=== PATIENT | male | born 1960 | race Caucasian/White ===

== ENCOUNTER 2019-01-01 18:35 | Inpatient (IN) | payer MEDICAID ==
[2019-01-01] MEDS ORDERED: solu-MEDROL 125 MG IV ONE (18:38)
[2019-01-01] MEDS ORDERED: DUONEB 0.5-3 MG/3 ml Neb IH ONE ×3 (18:38→21:21)
[2019-01-01] MEDS ORDERED: solu-MEDROL 125 MG ONE (18:42)
[2019-01-01] MEDS: Sodium Chloride 0.9% 1000 ML 1,000 ML IV SCH (18:44)
--- NOTE | 2019-01-01 18:49 | ERPHSYRPT ---
- History of Present Illness Time Seen by Provider: 01/01/19 18:35 Source: patient Exam Limitations: clinical condition Physician History: PATIENT WITH A HISTORY OF CHRONIC DYSPNEA, COPD, REQUIRES HOME OXYGEN, CORONARY ARTERY DISEASE COMPLAINS OF PRODUCTIVE COUGH YELLOW SPUTUM OVER THE PAST 4-5 DAYS ASSOCIATED WITH DYSPNEA AT REST. DENIES CHEST PAIN, PALPITATIONS OR DIAPHORESIS, FEVER OR CHILLS. Timing/Duration: day(s) Activities at Onset: activity Severity of Dyspnea-Max: severe Severity of Dyspnea-Current: severe Possible Cause: occasional episodes Modifying Factors: Improves With: activity, coughing Associated Symptoms: cough, wheezing, lightheadedness, productive cough International travel in last 2 weeks: No Allergies/Adverse Reactions: No Known Drug Allergies Allergy (Verified 01/01/19 18:57) Home Medications: Albuterol Sulfate [Proair Hfa] 1 puff IH Q4H PRN PRN 01/01/19 [History] Albuterol/Ipratropium 3ml Neb* [DUONEB 0.5-3 MG/3 ml Neb] 1 puff IH Q4H PRN PRN 01/01/19 [History] Aspirin 81 gm Chew [Baby Aspirin 81 mg Chew] 81 mg PO DAILY 01/01/19 [ History] Atorvastatin Calcium [Lipitor] 80 mg PO HS 01/01/19 [History] Carvedilol 3.125 mg [Coreg 3.125 MG] 3.125 mg PO BID 01/01/19 [History] Isosorbide Mononitrate 30 mg [Imdur 30 MG] 30 mg PO DAILY 01/01/19 [History ] Losartan Potassium 25 mg PO DAILY 01/01/19 [History] Omeprazole 40 mg PO DAILY 01/01/19 [History] Prednisone 10 mg [Deltasone 10 mg] 10 mg PO BID 01/01/19 [History] Venlafaxine HCl [Effexor] 225 mg PO DAILY 01/01/19 [History] Hx Tetanus, Diphtheria Vaccination/Date Given: Yes (PT STATES UTD) Hx Influenza Vaccination/Date Given: Yes Hx Pneumococcal Vaccination/Date Given: No - Review of Systems Constitutional: No Fever, No Chills Eyes: No Symptoms Ears, Nose, & Throat: No Symptoms Respiratory: Cough, Dyspnea, Dyspnea on Exertion (BURR) Cardiac: No Symptoms, No Chest Pain, No Edema, No Syncope Abdominal/Gastrointestinal: No Symptoms, No Abdominal Pain, No Nausea, No Vomiting, No Diarrhea Genitourinary Symptoms: No Symptoms, No Dysuria Musculoskeletal: No Symptoms, No Back Pain, No Neck Pain Skin: No Symptoms, No Rash Neurological: No Dizziness, No Focal Weakness, No Sensory Changes Psychological: No Symptoms Endocrine: No Symptoms All Other Systems: Reviewed and Negative - Past Medical History Pertinent Past Medical History: Yes Neurological History: No Pertinent History ENT History: No Pertinent History Cardiac History: Coronary Artery Disease, High Cholesterol, Hypertension Respiratory History: COPD, Emphysema Endocrine Medical History: No Pertinent History Musculoskeletal History: No Pertinent History GI Medical History: No Pertinent History History: No Pertinent History Psycho-Social History: Depression Male Reproductive Disorders: No Pertinent History Other Medical History: [place] 2009 - Past Surgical History Past Surgical History: Yes Neuro Surgical History: No Pertinent History Cardiac: CABG Respiratory: No Pertinent History Gastrointestinal: No Pertinent History Genitourinary: No Pertinent History Musculoskeletal: Orthopedic Surgery Male Surgical History: No Pertinent History Other Surgical History: BROKEN JAW YEARS AGO - Social History Smoking Status: Current every day smoker How long have you smoked: 1 YEAR Exposure to second hand smoke: No Drug Use: none Patient Lives Alone: No - Nursing Vital Signs Nursing Vital Signs: Initial Vital Signs Pulse Rate 100 H 01/01/19 18:38 Respiratory Rate 40 H 01/01/19 18:38 O2 Sat by Pulse Oximetry 100 01/01/19 18:38 Pain Scale Pain Intensity 0 - Physical Exam General Appearance: moderate distress, other (MARKED TACHYPNEA, LABORED BREATHING) Neck Exam: normal inspection Respiratory Exam: respiratory distress, diminished breath sounds, accessory muscle use, prolonged expirations, crackles/rales Cardiovascular/Chest Exam: normal heart sounds, regular rate/rhythm Abdominal/Gastrointestinal Exam: soft, normal bowel sounds Extremity Exam: non-tender, no pedal edema, pedal edema (+1 PITTING PRETIBIAL EDEMA), swelling Peripheral Pulses Exam: carotid (R): 2+, carotid (L): 2+, femoral (R): 2+, femoral (L): 2+, dorsalis-pedis (R): 2+, dorsalis-pedis (L): 2+ Neurologic Exam: alert, oriented x 3, EOM palsy Lymphatic Exam: adenopathy SpO2 Interpretation: hypoxic SpO2: 81 O2 Delivery: Room Air - Course EKG Interpreted by Me: RATE, Sinus Rhythm, Right [place] Deviation, Non-specific ST Changes - Radiology Exams Chest X-ray Interpretation: Interpreted by me (PULMONARY FIBROSIS, LEFT INFRAHILAR INFILTRATE) Ordered Tests: Active Orders 24 hr Category Date Time Status Bedrest with BRP/BSC TOLERATED Activity 01/01/19 21:54 Active Painter Bottom STAT Care 01/01/19 18:39 Active Code Status Order ROUTINE Care 01/01/19 21:54 Active EKG-ER Only STAT Care 01/01/19 18:38 Active IV Insertion ROUTINE Care 01/01/19 21:54 Active IV Insertion STAT Care 01/01/19 18:38 Active Implement Pneumonia Pathway ROUTINE Care 01/01/19 21:54 Active Oxygen-ED Only Nasal Cannula 2 lpm Care 01/01/19 18:[address] in Observation ROUTINE Care 01/01/19 21:54 Active Vital Signs Q4H Care 01/01/19 21:54 Active Cardiac Diet Diet 01/01/19 Breakfast Active CHEST 1 VIEW (PORTABLE) Stat Exams 01/01/19 18:39 Taken ARTERIAL BLOOD GASES Stat Lab 01/01/19 19:00 Completed BLOOD CULTURE Stat Lab 01/01/19 19:00 Received CBC W DIFF Stat Lab 01/01/19 18:40 Completed CMP Stat Lab 01/01/19 18:40 Completed D-DIMER QUANTITATION Stat Lab 01/01/19 18:40 Completed Lactic Acid Stat Lab 01/01/19 19:00 Completed Lactic Acid Stat Lab 01/01/19 21:16 Ordered MAGNESIUM Stat Lab 01/01/19 18:40 Completed Manual Differential NC Stat Lab 01/01/19 18:40 Completed NT PRO BNP Stat Lab 01/01/19 18:40 Completed PROTIME WITH INR Stat Lab 01/01/19 18:40 Completed TROPONIN Q3H Lab 01/01/19 18:45 Completed TROPONIN Q3H Lab 01/01/19 21:53 Completed TROPONIN Q3H Lab 01/02/19 03:45 Ordered TROPONIN Q3H Lab 01/02/19 06:45 Ordered BiPap/CPAP STAT RT 01/01/19 18:38 Active Oxygen Venti-Mask 40% RT 01/01/19 22:09 Active Respiratory Nebulizer STAT RT 01/01/19 21:05 Completed Respiratory Therapy Assessment DAILY RT 01/01/19 19:24 Active Medication Summary Generic Name Dose Route Start Last Admin Trade Name Freq PRN Reason Stop Dose Admin Acetaminophen 650 mg 01/01/19 22:02 Tylenol 325 Mg PO 01/31/19 22:01 Q4H PRN PRN PAIN AND/OR FEVER Albuterol/Ipratropium 3 ml 01/01/19 22:03 Duoneb 0.5-3 Mg/3 Ml Neb IH 01/31/19 22:02 Q4HPRN PRN SHORTNESS OF BREATH/WHEEZING Aspirin 81 mg 01/02/19 10:00 Baby Aspirin 81 Mg Chew PO 02/01/19 09:59 QAM GIGI Carvedilol 3.125 mg 01/02/19 10:00 Coreg 3.125 Mg PO 02/01/19 09:59 BID GIGI Sodium Chloride 1,000 mls @ 20 mls/hr 01/01/19 18:45 01/01/19 18:44 Sodium Chloride 0.9% 1000 Ml IV 01/31/19 18:44 20 mls/hr .Q24H GIGI Administration Levofloxacin/Dextrose 750 mg in 150 mls @ 100 mls/hr 01/01/19 22:00 Levofloxacin 750mg/150ml D5w IV 01/31/19 21:59 Q24H GIGI Isosorbide Mononitrate 30 mg 01/02/19 10:00 Imdur 30 Mg PO 02/01/19 09:59 DAILY [facility] Levalbuterol HCl 1.25 mg 01/01/19 22:03 Xopenex 1.25 Mg/0.5 Ml Ud Nebule IH 01/31/19 22:02 Q2HPRN PRN DIFFICULTY BREATHING Losartan Potassium 25 mg 01/02/19 10:00 Cozaar 50 Mg PO 02/01/19 09:59 DAILY [facility] Methylprednisolone Sodium Succinate 80 mg 01/01/19 22:15 Solu-Medrol 40 Mg IV 01/31/19 22:14 Q6H GIGI Pantoprazole Sodium 40 mg 01/02/19 10:00 Protonix 40mg Tablet PO 02/01/19 09:59 DAILY GIGI Discontinued Medications Generic Name Dose Route Start Last Admin Trade Name Freq PRN Reason Stop Dose Admin Albuterol/Ipratropium 3 ml 01/01/19 18:38 01/01/19 18:40 Duoneb 0.5-3 Mg/3 Ml Neb IH 01/01/19 18:39 3 ml STAT ONE Administration Albuterol/Ipratropium 3 ml 01/01/19 21:04 01/01/19 21:22 Duoneb 0.5-3 Mg/3 Ml Neb IH 01/01/19 21:05 3 ml STAT ONE Administration Albuterol/Ipratropium Confirm 01/01/19 21:21 Duoneb 0.5-3 Mg/3 Ml Neb Administered 01/01/19 21:22 Dose 3 ml IH .STK-MED ONE Levofloxacin/Dextrose 500 mg in 100 mls @ 100 mls/hr 01/01/19 19:44 01/01/19 20:03 Levofloxacin 500mg/100ml D5w IV 01/01/19 20:43 100 mls/hr STAT STA Administration Levofloxacin/Dextrose Confirm 01/01/19 19:56 Levofloxacin 500mg/100ml D5w Administered 01/01/19 19:57 Dose 500 mg in 100 mls @ ud IV .STK-MED ONE Methylprednisolone Sodium Succinate 125 mg 01/01/19 18:38 01/01/19 18:43 Solu-Medrol 125 Mg IV 01/01/19 18:39 125 mg STAT ONE Administration Methylprednisolone Sodium Succinate Confirm 01/01/19 18:42 Solu-Medrol 125 Mg Administered 01/01/19 18:43 Dose 125 mg .ROUTE .STK-MED ONE Lab/Rad Data: Laboratory Result Diagrams 01/01/19 18:40 01/01/19 18:40 Laboratory Results 01/01/19 01/01/19 01/01/19 Range/Units 21:53 20:55 19:00 WBC (4.0-10.5) K/mm3 RBC (4.1-5.6) M/mm3 Hgb (12.5-18.0) gm/dl Hct (42-50) % MCV (78-100) fl MCH (26-32) pg MCHC (32-36) g/dl RDW (11.5-14.0) % Plt Count (150-450) K/mm3 MPV (6-9.5) fl Absolute Granulocytes (1.4-6.9) Segmented Neutrophils (36.-66.) % Lymphocytes (Manual) (24-44) % Monocytes (Manual) (0.0-12.0) % Eosinophils (Manual) (0.00-3.0) % Platelet Estimate (NORMAL) RBC Morphology PT (8.83-12.87) SECONDS INR (0.8-3.0) D-Dimer (215-500) ng/mL Puncture Site LEFT RADIAL pCO2 37 (35-45) mmHg pO2 264 H* (75-100) mmHg Base Excess -1.5 (-2.0-2.0) O2 Saturation 97.2 (94-100) g/dF ABG pH 7.40 (7.35-7.45) ABG HCO3 22.9 (22-28) ABG O2 Sat (Measured) 99.3 (95-100) % Delroy Test YES A-a Gradient 260 a/A Ratio 0.50 Hemoglobin 15.7 Carboxyhemoglobin 1.8 (0.0-6.9) % THgb Methemoglobin 0.3 L (1.4-1.5) % Temperature 37.0 C POC O2 Flow Rate 80 % Vent Mode BiPAP Inspiratory BiPAP 14 Expiratory BiPAP 6 Sodium (137-145) mmol/L Potassium 4.0 (3.5-5.1) mmol/L Chloride (98-107) mmol/L Carbon Dioxide (22-30) mmol/L Anion Gap (5-15) MEQ/L BUN (9-20) mg/dL Creatinine (0.66-1.25) mg/dL Estimated GFR ML/MIN Glucose (74-106) mg/dL Lactic Acid 1.9 (0.4-2.0) Calcium (8.4-10.2) mg/dL Magnesium (1.6-2.3) mg/dL Total Bilirubin (0.2-1.3) mg/dL AST (17-59) U/L ALT (0-50) U/L Alkaline Phosphatase (38-126) U/L Troponin I < 0.012 (0.000-0.034) ng/mL NT-Pro-B Natriuret Pep (0-900) pg/mL Serum Total Protein (6.3-8.2) g/dL Albumin (3.5-5.0) g/dL Influenza Type A Ag NEGATIVE (NEGATIVE) Influenza Type B Ag NEGATIVE (NEGATIVE) RSV (PCR) NEGATIVE (Negative) 01/01/19 01/01/19 01/01/19 Range/Units 18:45 18:40 18:40 WBC (4.0-10.5) K/mm3 RBC (4.1-5.6) M/mm3 Hgb (12.5-18.0) gm/dl Hct (42-50) % MCV (78-100) fl MCH (26-32) pg MCHC (32-36) g/dl RDW (11.5-14.0) % Plt Count (150-450) K/mm3 MPV (6-9.5) fl Absolute Granulocytes (1.4-6.9) Segmented Neutrophils (36.-66.) % Lymphocytes (Manual) (24-44) % Monocytes (Manual) (0.0-12.0) % Eosinophils (Manual) (0.00-3.0) % Platelet Estimate (NORMAL) RBC Morphology PT 10.7 (8.83-12.87) SECONDS INR 0.92 (0.8-3.0) D-Dimer 406 (215-500) ng/mL Puncture Site pCO2 (35-45) mmHg pO2 (75-100) mmHg Base Excess (-2.0-2.0) O2 Saturation (94-100) g/dF ABG pH (7.35-7.45) ABG HCO3 (22-28) ABG O2 Sat (Measured) (95-100) % Delroy Test A-a Gradient a/A Ratio Hemoglobin Carboxyhemoglobin (0.0-6.9) % THgb Methemoglobin (1.4-1.5) % Temperature C POC O2 Flow Rate % Vent Mode Inspiratory BiPAP Expiratory BiPAP Sodium 142 (137-145) mmol/L Potassium 3.8 (3.5-5.1) mmol/L Chloride 103 (98-107) mmol/L Carbon Dioxide 27 (22-30) mmol/L Anion Gap 16.5 H (5-15) MEQ/L BUN 20 (9-20) mg/dL Creatinine 1.00 (0.66-1.25) mg/dL Estimated GFR > 60.0 ML/MIN Glucose 100 (74-106) mg/dL Lactic Acid (0.4-2.0) Calcium 9.3 (8.4-10.2) mg/dL Magnesium 2.0 (1.6-2.3) mg/dL Total Bilirubin 0.40 (0.2-1.3) mg/dL AST 45 (17-59) U/L ALT 40 (0-50) U/L Alkaline Phosphatase 100 (38-126) U/L Troponin I < 0.012 (0.000-0.034) ng/mL NT-Pro-B Natriuret Pep 73.4 (0-900) pg/mL Serum Total Protein 7.5 (6.3-8.2) g/dL Albumin 4.1 (3.5-5.0) g/dL Influenza Type A Ag (NEGATIVE) Influenza Type B Ag (NEGATIVE) RSV (PCR) (Negative) 01/01/19 Range/Units 18:40 WBC 11.6 H (4.0-10.5) K/mm3 RBC 5.07 (4.1-5.6) M/mm3 Hgb 16.4 (12.5-18.0) gm/dl Hct 49.6 (42-50) % MCV 97.8 (78-100) fl MCH 32.3 H (26-32) pg MCHC 33.1 (32-36) g/dl RDW 13.3 (11.5-14.0) % Plt Count 262 (150-450) K/mm3 MPV 9.5 (6-9.5) fl Absolute Granulocytes 5.33 (1.4-6.9) Segmented Neutrophils 57 (36.-66.) % Lymphocytes (Manual) 31 (24-44) % Monocytes (Manual) 10 (0.0-12.0) % Eosinophils (Manual) 2 (0.00-3.0) % Platelet Estimate NORMAL (NORMAL) RBC Morphology NORMAL PT (8.83-12.87) SECONDS INR (0.8-3.0) D-Dimer (215-500) ng/mL Puncture Site pCO2 (35-45) mmHg pO2 (75-100) mmHg Base Excess (-2.0-2.0) O2 Saturation (94-100) g/dF ABG pH (7.35-7.45) ABG HCO3 (22-28) ABG O2 Sat (Measured) (95-100) % Delroy Test A-a Gradient a/A Ratio Hemoglobin Carboxyhemoglobin (0.0-6.9) % THgb Methemoglobin (1.4-1.5) % Temperature C POC O2 Flow Rate % Vent Mode Inspiratory BiPAP Expiratory BiPAP Sodium (137-145) mmol/L Potassium (3.5-5.1) mmol/L Chloride (98-107) mmol/L Carbon Dioxide (22-30) mmol/L Anion Gap (5-15) MEQ/L BUN (9-20) mg/dL Creatinine (0.66-1.25) mg/dL Estimated GFR ML/MIN Glucose (74-106) mg/dL Lactic Acid (0.4-2.0) Calcium (8.4-10.2) mg/dL Magnesium (1.6-2.3) mg/dL Total Bilirubin (0.2-1.3) mg/dL AST (17-59) U/L ALT (0-50) U/L Alkaline Phosphatase (38-126) U/L Troponin I (0.000-0.034) ng/mL NT-Pro-B Natriuret Pep (0-900) pg/mL Serum Total Protein (6.3-8.2) g/dL Albumin (3.5-5.0) g/dL Influenza Type A Ag (NEGATIVE) Influenza Type B Ag (NEGATIVE) RSV (PCR) (Negative) - Progress Air Movement: fair Progress Note: 01/01/19 18:50 PLACED ONTO BIPAP UPON ARRIVAL, ADMINISTERED DUO NEB UNIT DOSE THROUGH CIRCUIT, PULSE OX IMPROVED TO 99%, SOLUMEDROL 125MG IV Blood Culture(s) Obtained: Yes Antibiotics given: Yes Discussed with : Bouchra (DISCUSSED WITH DR APONTE AT 2140 FOR OBSERVATION) - Departure Departure Disposition: Observation Clinical Impression: ACUTE EXACERBATION COPD, PNEUMONIA Condition: Stable Critical Care Time: No Referrals: TWYLA BRIZUELA [Primary Care Provider] -
[2019-01-01 19:08] LABS: Granulocyte Absolute (ANC) 5.33 (1.4-6.9); Hematocrit 49.6 % (42-50); Hemoglobin 16.4 gm/dl (12.5-18.0); Mean Cell Volume 97.8 fl (78-100); Mean Corpuscular Hemoglobin 32.3 pg (26-32); Mean Corpuscular Hgb Concent. 33.1 g/dl (32-36); Mean Platelet Volume 9.5 fl (6-9.5); Platelet Count 262 K/mm3 (150-450); Red Blood Count 5.07 M/mm3 (4.1-5.6); Red Cell Distribution Width 13.3 % (11.5-14.0); White Blood Count 11.6 K/mm3 (4.0-10.5)
[2019-01-01 19:16] LABS: A-aADO2 260; ABG HEMOGLOBIN 15.7; ARTERIAL BLD GAS O2 SATURATION 99.3 % (95-100); ARTERIAL BLOOD GAS BASE EXCESS -1.5 (-2.0-2.0); ARTERIAL BLOOD GAS FIO2 80 %; ARTERIAL BLOOD GAS PCO2 37 mmHg (35-45); ARTERIAL BLOOD GAS PO2 264 mmHg (75-100); ARTERIAL BLOOD GAS VENT MODE BiPAP; CARBOXYHEMOGLOBIN 1.8 % THgb (0.0-6.9); HCO3- 22.9 (22-28); HGB O2 SAT 97.2 g/dF (94-100); Lactic Acid 1.9 (0.4-2.0); Methhemoglobin 0.3 % (1.4-1.5)
[2019-01-01 19:17] LABS: ABG SITE LEFT RADIAL; ALLEN TEST OK? YES
[2019-01-01 19:22] LABS: INR 0.92 (0.8-3.0); PROTIME 10.7 SECONDS (8.83-12.87)
[2019-01-01 19:36] LABS: ALBUMIN 4.1 g/dL (3.5-5.0); ALKALINE PHOSPHATASE 100 U/L (38-126); ANION GAP 16.5 MEQ/L (5-15); BLOOD UREA NITROGEN 20 mg/dL (9-20); CHLORIDE 103 mmol/L (98-107); Calcium 9.3 mg/dL (8.4-10.2); Carbon Dioxide 27 mmol/L (22-30); Glucose 100 mg/dL (74-106); NT PRO BNP 73.4 pg/mL (0-900); Potassium 3.8 mmol/L (3.5-5.1); SGOT/AST 45 U/L (17-59); SGPT/ALT 40 U/L (0-50); SODIUM 142 mmol/L (137-145); Total Protein 7.5 g/dL (6.3-8.2)
[2019-01-01] MEDS ORDERED: Levofloxacin 500MG/100ML D5W 500 MG/100 ML BAG IV STA (19:44)
[2019-01-01] MEDS ORDERED: Levofloxacin 500MG/100ML D5W 500 MG/100 ML BAG IV ONE (19:56)
[2019-01-01 21:35] LABS: Eosinophil 2 % (0.00-3.0); Lymphocytes 31 % (24-44); Monocyte 10 % (0.0-12.0); Neutrophils 57 % (36.-66.); Platelet Estimate NORMAL (NORMAL); Total Cells Counted 100
[2019-01-01 21:41] LABS: INFLUENZA A NEGATIVE (NEGATIVE); INFLUENZA B NEGATIVE (NEGATIVE); RESPIRATORY SYNCTIAL VIRUS NEGATIVE (Negative)
[2019-01-01] MEDS ORDERED: LEVOFLOXACIN 750MG/150ML D5W 750 MG/150 ML BAG IV SCH (22:00)
[2019-01-01] MEDS ORDERED: TYLENOL 325 MG PO PRN (22:02)
[2019-01-01] MEDS ORDERED: Xopenex 1.25 MG/0.5 ML UD NEBULE IH PRN (22:03)
[2019-01-01] MEDS ORDERED: DUONEB 0.5-3 MG/3 ml Neb IH PRN (22:03)
[2019-01-02] MEDS ORDERED: solu-MEDROL 125 MG ONE (03:41)
[2019-01-02] MEDS: solu-MEDROL 40 MG IV SCH ×2 (04:35→09:49)
[2019-01-02] MEDS: DUONEB 0.5-3 MG/3 ml Neb IH SCH ×4 (07:15→19:26)
--- NOTE | 2019-01-02 08:40 | XRAY ---
Indication: Short of breath. Comparison: May 10, 2015. Portable chest unchanged again demonstrating cardiomegaly, CABG surgery, chronic fibrosis/scarring, and osteopenia. No new/acute cardiopulmonary abnormalities.
[2019-01-02 09:23] LABS: A-aADO2 463; ABG HEMOGLOBIN 14.6; ABG POTASSIUM 4.3 (3.5-5.1); ABG SITE LEFT RADIAL; ARTERIAL BLD GAS O2 SATURATION 93.1 % (95-100); ARTERIAL BLOOD GAS FIO2 80 %; ARTERIAL BLOOD GAS PCO2 36 mmHg (35-45); ARTERIAL BLOOD GAS PO2 62 mmHg (75-100); ARTERIAL BLOOD GAS VENT MODE oxymask; CARBOXYHEMOGLOBIN 1.6 % THgb (0.0-6.9); HCO3- 22.3 (22-28); HGB O2 SAT 91.3 g/dF (94-100); Methhemoglobin 0.3 % (1.4-1.5); paO2 pAO1 0.12
[2019-01-02] MEDS: Imdur 30 MG PO SCH (09:31)
[2019-01-02] MEDS: Cozaar 50 MG PO SCH (09:31)
[2019-01-02] MEDS: Coreg 3.125 MG PO SCH ×2 (09:32→21:01)
[2019-01-02] MEDS: ECOTRIN 81 MG PO SCH (09:32)
[2019-01-02] MEDS: Protonix 40MG Tablet PO SCH (09:32)
[2019-01-02] MEDS ORDERED: BABY ASPIRIN 81 MG CHEW PO SCH (10:00)
[2019-01-02] MEDS: solu-MEDROL 125 MG IV SCH ×3 (11:00→23:55)
[2019-01-02] MEDS ORDERED: Ativan 2 MG/1 ML VIAL IV ONE (11:29)
[2019-01-02] MEDS: Zosyn 3.375GM/100 Ml D5W 3.375 GM/100 ML IVPB IV SCH ×3 (11:31→23:55)
--- NOTE | 2019-01-02 11:46 | XRAY ---
Indication: Dyspnea. Comparison: One day earlier. Portable apical lordotic chest continues to demonstrate cardiomegaly with CABG surgery and chronic pulmonary fibrosis/scarring. No new/acute cardiopulmonary abnormalities. Comment: Study was reviewed with the ordering clinician.
[2019-01-02] MEDS ORDERED: Ventolin Hfa MDI IH PRN (13:03)
[2019-01-02] MEDS ORDERED: PROVENTIL COMMON CANISTER IH PRN (13:07)
[2019-01-02] MEDS ORDERED: MEDICATION INTERVENTION MC SCH (13:15)
[2019-01-02 13:47] LABS: BASOPHIL % 0.2 % (0.0-0.4); Basophil (Absolute #) 0.02 (0-0.4); Eosinophil (Absolute #) 0 (0-0.5); Granulocyte Absolute (ANC) 6.49 (1.4-6.9); Granulocytes % 80.3 % (36.0-66.0); Hematocrit 42.4 % (42-50); Hemoglobin 14.4 gm/dl (12.5-18.0); Lymphocyte (Absolute #) 1.38 (1.0-4.6); Lymphocytes % 17.1 % (24.0-44.0); Mean Cell Volume 96.6 fl (78-100); Mean Corpuscular Hemoglobin 32.8 pg (26-32); Mean Platelet Volume 9.4 fl (6-9.5); Monocyte (Absolute #) 0.19 (0.0-1.3); Monocytes % 2.4 % (0.0-12.0); Platelet Count 203 K/mm3 (150-450); Red Blood Count 4.39 M/mm3 (4.1-5.6); Red Cell Distribution Width 12.8 % (11.5-14.0); White Blood Count 8.1 K/mm3 (4.0-10.5)
[2019-01-02 13:56] LABS: ANION GAP 16.2 MEQ/L (5-15); BLOOD UREA NITROGEN 21 mg/dL (9-20); CHLORIDE 102 mmol/L (98-107); Calcium 9.6 mg/dL (8.4-10.2); Carbon Dioxide 25 mmol/L (22-30); Creatinine 1 0.78 mg/dL (0.66-1.25); Glucose 264 mg/dL (74-106); Potassium 4.9 mmol/L (3.5-5.1); SODIUM 138 mmol/L (137-145)
[2019-01-02] MEDS: Effexor XR 75 MG PO SCH (15:17)
[2019-01-02] MEDS: Sodium Chloride 0.9% 1000 ML 1,000 ML IV SCH (17:49)
[2019-01-02] MEDS: NovoLOG Insulin SQ PRN (17:49)
[2019-01-02] MEDS: ENOXAPARIN SODIUM SQ SCH (17:49)
[2019-01-02] MEDS: Ativan 2 MG/1 ML VIAL IV PRN (20:24)
[2019-01-02] MEDS: ZOCOR 20MG PO SCH (21:05)
[2019-01-02] MEDS: LEVOFLOXACIN 750MG/150ML D5W 750 MG/150 ML BAG IV SCH (21:19)
[2019-01-02] MEDS ORDERED: NON-FORMULARY ITEM (Atorvastatin Calcium [Lipitor] 80 MG) PO SCH (22:00)
[2019-01-03] MEDS: Ativan 2 MG/1 ML VIAL IV PRN ×3 (03:24→21:27)
[2019-01-03] MEDS: solu-MEDROL 125 MG IV SCH ×3 (05:20→17:28)
[2019-01-03] MEDS: Zosyn 3.375GM/100 Ml D5W 3.375 GM/100 ML IVPB IV SCH ×3 (05:20→17:27)
[2019-01-03 06:04] LABS: Hematocrit 42.7 % (42-50); Hemoglobin 13.9 gm/dl (12.5-18.0); Mean Cell Volume 99.5 fl (78-100); Mean Corpuscular Hemoglobin 32.4 pg (26-32); Mean Corpuscular Hgb Concent. 32.6 g/dl (32-36); Mean Platelet Volume 9.8 fl (6-9.5); Platelet Count 231 K/mm3 (150-450); Red Blood Count 4.29 M/mm3 (4.1-5.6); White Blood Count 13.7 K/mm3 (4.0-10.5)
[2019-01-03 06:21] LABS: ALBUMIN 3.7 g/dL (3.5-5.0); ALKALINE PHOSPHATASE 74 U/L (38-126); ANION GAP 16.4 MEQ/L (5-15); BLOOD UREA NITROGEN 24 mg/dL (9-20); CHLORIDE 105 mmol/L (98-107); Calcium 9.5 mg/dL (8.4-10.2); Carbon Dioxide 27 mmol/L (22-30); Creatinine 1 0.88 mg/dL (0.66-1.25); Glucose 219 mg/dL (74-106); Potassium 5.3 mmol/L (3.5-5.1); SGOT/AST 33 U/L (17-59); SGPT/ALT 43 U/L (0-50); SODIUM 142 mmol/L (137-145); Total Protein 6.9 g/dL (6.3-8.2)
[2019-01-03] MEDS ORDERED: PATIENT OWN MEDICATION IH SCH (07:00)
[2019-01-03] MEDS: NovoLOG Insulin SQ PRN ×4 (07:40→21:28)
[2019-01-03 08:03] LABS: BAND 4 % (0.0-2.0); Lymphocytes 7 % (24-44); Monocyte 7 % (0.0-12.0); Neutrophils 82 % (36.-66.); Platelet Estimate NORMAL (NORMAL); Total Cells Counted 100
[2019-01-03] MEDS: DUONEB 0.5-3 MG/3 ml Neb IH SCH ×4 (08:10→19:27)
[2019-01-03] MEDS: Protonix 40MG Tablet PO SCH (09:28)
[2019-01-03] MEDS: Effexor XR 75 MG PO SCH (09:28)
[2019-01-03] MEDS: ECOTRIN 81 MG PO SCH (09:28)
[2019-01-03] MEDS: Imdur 30 MG PO SCH (09:28)
[2019-01-03] MEDS: ENOXAPARIN SODIUM SQ SCH (09:29)
[2019-01-03] MEDS: Coreg 3.125 MG PO SCH ×2 (09:29→21:38)
[2019-01-03] MEDS: Cozaar 50 MG PO SCH (09:29)
[2019-01-03] MEDS ORDERED: NON-FORMULARY ITEM (Glycopyrrolate/Formoterol Fum [Bevespi Aerosphere Inhaler] 2 PUFF) PO SCH (10:00)
[2019-01-03] MEDS ORDERED: VENLAFAXINE HCL 225 MG PO SCH (10:00)
--- NOTE | 2019-01-03 16:09 | PCM.NOTE ---
Date and Time: 01/03/19 1602 Subjective Assessment: Patient reports he continues to be able to use the bipap if he has the ativan to help with his anxiety that he has with having the mask in place. He reports his cough is better. He continues to get short of breath with movement. He denies pain and has had a good appetite. - Review of Systems Constitutional: No Symptoms Eyes: No Symptoms Ears, Nose, & Throat: No Symptoms Respiratory: Cough, Short Of Breath, Wheezing Cardiac: No Symptoms Abdominal/Gastrointestinal: No Symptoms, Other (He had a stool yesterday.) Genitourinary Symptoms: No Symptoms Musculoskeletal: No Symptoms Skin: No Symptoms Objective Exam General Appearance: mild distress, obese Neurologic Exam: alert, cooperative, normal mood/affect Skin Exam: normal color, warm, dry, No rash Respiratory Exam: other (Distant breath sounds, diminished at the bases bilat) Cardiovascular Exam: regular rate/rhythm, normal heart sounds, No murmur, No friction rub, No gallop Gastrointestinal/Abdomen Exam: soft, normal bowel sounds, No tenderness, No distention, No mass Extremity Exam: other (no c/c/e) OBJECTIVE DATA Vital Signs: Vital Signs - 24 hr Temp Pulse Resp BP BP Pulse Ox 01/03/19 15:34 97.6 F 92 H 22 120/69 94 L 01/03/19 12:09 70 22 96 01/03/19 12:00 97.6 F 69 22 121/62 01/03/19 08:32 86 28 H 93 L 01/03/19 07:47 97.8 F 69 30 H 143/85 94 L 01/03/19 04:00 97.8 F 89 26 H 135/81 94 L 01/03/19 00:01 106 H 01/03/19 00:00 97.8 F 106 H 26 H 129/79 95 01/02/19 20:00 97.4 F 106 H 28 H 134/80 95 01/02/19 19:28 105 H 28 H 93 L Oxygen-Last 24 hours O2 Percentage 70% Oxygen Flowrate (L/min)-RT 12 Oxygen Flowrate (L/min)-RT 10 Oxygen Flowrate (L/min)-RT 12 Oxygen Flowrate (L/min)-RT 12 Pain Assessment - Last Documented Pain Intensity 1 Pain Scale Used 0-10 Pain Scale Intake and Output: Intake & Output 01/01/19 01/02/19 01/03/19 01/04/19 06:59 06:59 06:59 06:59 Intake Total 100 3143 Output Total 525 1700 Balance -425 1443 Weight 119.7 kg Lab Results: Accuchecks Date 01/03/19 Date 01/03/19 Date 01/02/19 Date 01/02/19 Time 11:39 Time 07:30 Time 21:30 Time 17:50 Accucheck Value: 289 Accucheck Value: 309 Accucheck Value: 316 Lab Results-Last 24 Hours 01/03/19 01/03/19 01/03/19 Range/Units 05:20 05:20 05:20 WBC 13.7 H (4.0-10.5) K/mm3 RBC 4.29 (4.1-5.6) M/mm3 Hgb 13.9 (12.5-18.0) gm/dl Hct 42.7 (42-50) % MCV 99.5 (78-100) fl MCH 32.4 H (26-32) pg MCHC 32.6 (32-36) g/dl RDW 13.0 (11.5-14.0) % Plt Count 231 (150-450) K/mm3 MPV 9.8 H (6-9.5) fl Segmented Neutrophils 82 H (36.-66.) % Band Neutrophils 4 H (0.0-2.0) % Lymphocytes (Manual) 7 L (24-44) % Monocytes (Manual) 7 (0.0-12.0) % Platelet Estimate NORMAL (NORMAL) RBC Morphology NORMAL Sodium 142 (137-145) mmol/L Potassium 5.3 H (3.5-5.1) mmol/L Chloride 105 (98-107) mmol/L Carbon Dioxide 27 (22-30) mmol/L Anion Gap 16.4 H (5-15) MEQ/L BUN 24 H (9-20) mg/dL Creatinine 0.88 (0.66-1.25) mg/dL Estimated GFR > 60.0 ML/MIN Glucose 219 H (74-106) mg/dL Hemoglobin A1c 6.36 H (4.5-6.0) % Calcium 9.5 (8.4-10.2) mg/dL Total Bilirubin 0.20 (0.2-1.3) mg/dL AST 33 (17-59) U/L ALT 43 (0-50) U/L Alkaline Phosphatase 74 (38-126) U/L Serum Total Protein 6.9 (6.3-8.2) g/dL Albumin 3.7 (3.5-5.0) g/dL Radiology Exams: Radiology Procedures Category Date Time Status CHEST 1 VIEW (PORTABLE) Stat Exams 01/01/19 18:39 Completed CHEST 1 VIEW (PORTABLE) Stat Exams 01/02/19 11:14 Completed Multi-Disciplinary Progress Notes: Multi-Disciplinary Progress Notes 01/02/19 21:43 Respiratory Note by Cr Galvan OBTAINED PT STILOTO TO GIVE TO DAY SHIFT TO HAVE PHARMACY CHECK IT. Initialized on 01/02/19 21:43 - END OF NOTE 01/02/19 21:41 Respiratory Note by Cr Galvan PT HAS BEEN GIVEN ATIVAN AND WOB HAS DECREASED AND PT IS RESTING WELL. I PLACED PT ON BIPAP FOR THE NIGHT. SATS ARE 96% ON 70% FIO2, HR 92, AND RR IS 18. PT BS DIMINISHED. Initialized on 01/02/19 21:41 - END OF NOTE Assessment/Plan (1) Acute exacerbation of chronic obstructive airways disease Current Visit: Yes Status: Acute Assessment & Plan: Continue IV steroids, IV antibiotics, oxygen by oximizer or with bipap as tolerated. Code(s): J44.1 - CHRONIC OBSTRUCTIVE PULMONARY DISEASE W (ACUTE) EXACERBATION (2) Acute on chronic respiratory failure Current Visit: Yes Status: Acute Assessment & Plan: Continue with bipap, oxygen. Belly Dancer consulted. Code(s): J96.20 - ACUTE AND CHR RESP FAILURE, UNSP W HYPOXIA OR HYPERCAPNIA (3) Pulmonary fibrosis Current Visit: Yes Status: Acute Assessment & Plan: Most likely contributing to some of his hypoxia. He follows with Dr. Guerrier as an outpatient. Code(s): J84.10 - PULMONARY FIBROSIS, UNSPECIFIED (4) CAD (coronary artery disease) Current Visit: Yes Status: Acute Assessment & Plan: Continue home medications. Code(s): I25.10 - ATHSCL HEART DISEASE OF [place] CORONARY ARTERY W/O ANG PCTRS (5) Hypertension Current Visit: Yes Status: Acute Assessment & Plan: Currently controlled. Code(s): I10 - ESSENTIAL (PRIMARY) HYPERTENSION
[2019-01-03] MEDS: LEVOFLOXACIN 750MG/150ML D5W 750 MG/150 ML BAG IV SCH (21:27)
[2019-01-03] MEDS: ZOCOR 20MG PO SCH (21:37)
[2019-01-04] MEDS: Zosyn 3.375GM/100 Ml D5W 3.375 GM/100 ML IVPB IV SCH ×4 (00:01→17:23)
[2019-01-04] MEDS: solu-MEDROL 125 MG IV SCH ×4 (05:45→17:24)
[2019-01-04 06:27] LABS: ANION GAP 11.8 MEQ/L (5-15); BLOOD UREA NITROGEN 21 mg/dL (9-20); CHLORIDE 103 mmol/L (98-107); Carbon Dioxide 28 mmol/L (22-30); Creatinine 1 0.74 mg/dL (0.66-1.25); Glucose 177 mg/dL (74-106); Potassium 4.6 mmol/L (3.5-5.1); SODIUM 137 mmol/L (137-145)
[2019-01-04 06:41] LABS: Hematocrit 38.9 % (42-50); Hemoglobin 12.7 gm/dl (12.5-18.0); Mean Cell Volume 99.7 fl (78-100); Mean Corpuscular Hgb Concent. 32.6 g/dl (32-36); Mean Platelet Volume 9.9 fl (6-9.5); Platelet Count 234 K/mm3 (150-450); White Blood Count 16.5 K/mm3 (4.0-10.5)
[2019-01-04 06:47] LABS: Mean Corpuscular Hemoglobin 32.5 pg (26-32)
[2019-01-04] MEDS: DUONEB 0.5-3 MG/3 ml Neb IH SCH ×4 (08:07→19:22)
[2019-01-04 08:22] LABS: BAND 3 % (0.0-2.0); Lymphocytes 10 % (24-44); Monocyte 4 % (0.0-12.0); Neutrophils 83 % (36.-66.); Platelet Estimate NORMAL (NORMAL); Total Cells Counted 100
[2019-01-04] MEDS: Effexor XR 75 MG PO SCH (09:21)
[2019-01-04] MEDS: Imdur 30 MG PO SCH (09:21)
[2019-01-04] MEDS: Protonix 40MG Tablet PO SCH (09:22)
[2019-01-04] MEDS: Coreg 3.125 MG PO SCH ×2 (09:22→22:30)
[2019-01-04] MEDS: Cozaar 50 MG PO SCH (09:22)
[2019-01-04] MEDS: ECOTRIN 81 MG PO SCH (09:22)
[2019-01-04] MEDS: ENOXAPARIN SODIUM SQ SCH (09:25)
[2019-01-04] MEDS: NovoLOG Insulin SQ PRN (11:59)
--- NOTE | 2019-01-04 12:12 | PCM.NOTE ---
Date and Time: 01/04/19 1210 Subjective Assessment: Patient reports that he is feeling better today. He has been weaned when on bipap to only 50% oxygen and on 12 L oximizer when off bipap. He reports Dr. Wayne came to see him last night. His appetite has been good. He is up in a chair and hopes to be able to walk in the halls soon. - Review of Systems Constitutional: No Symptoms Eyes: No Symptoms Ears, Nose, & Throat: No Symptoms Respiratory: Cough, Short Of Breath, Wheezing Cardiac: No Symptoms Abdominal/Gastrointestinal: No Symptoms Genitourinary Symptoms: Incontinence Musculoskeletal: No Symptoms Skin: No Symptoms Objective Exam General Appearance: no apparent distress, alert, obese Neurologic Exam: alert, cooperative, normal mood/affect Skin Exam: normal color, warm, dry, No rash Respiratory Exam: wheezing, other (very mild subcostal retractions), No crackles /rales, No rhonchi Cardiovascular Exam: regular rate/rhythm, normal heart sounds, No murmur, No friction rub, No gallop Gastrointestinal/Abdomen Exam: soft, normal bowel sounds, No tenderness, No distention, No mass Extremity Exam: other (no c/c/e) OBJECTIVE DATA Vital Signs: Vital Signs - 24 hr Temp Pulse Resp BP Pulse Ox 01/04/19 10:51 64 15 100 01/04/19 10:32 81 22 01/04/19 08:08 53 L 22 01/04/19 08:00 82 22 01/04/19 07:44 98.6 F 72 18 122/56 91 L 01/04/19 04:00 57 L 26 H 01/04/19 03:56 97.4 F 57 L 26 H 118/59 95 01/04/19 00:01 80 01/04/19 00:00 80 25 H 150/76 97 01/03/19 20:00 97.6 F 92 H 30 H 125/57 95 01/03/19 19:30 96 H 30 H 95 01/03/19 16:43 97.6 F 77 20 119/74 97 01/03/19 16:38 76 22 96 01/03/19 15:34 97.6 F 92 H 22 120/69 94 L Oxygen-Last 24 hours O2 Percentage 50% O2 Percentage 70% Oxygen Flowrate (L/min)-RT 12 Oxygen Flowrate (L/min)-RT 12 Oxygen Flowrate (L/min)-RT 12 Pain Assessment - Last Documented Pain Intensity 1 Pain Scale Used 0-10 Pain Scale Intake and Output: Intake & Output 01/02/19 01/03/19 01/04/19 01/05/19 06:59 06:59 06:59 06:59 Intake Total 100 3143 1834 150 Output Total 525 1700 2350 400 Balance -425 1443 -516 -250 Weight 119.7 kg Lab Results: Accuchecks Date 01/04/19 Date 01/04/19 Date 01/03/19 Date 01/03/19 Time 11:30 Time 07:30 Time 21:40 Time 16:30 Accucheck Value: 229 Accucheck Value: 249 Accucheck Value: 420 Accucheck Value: 424 Lab Results-Last 24 Hours 01/04/19 01/04/19 Range/Units 05:15 05:15 WBC 16.5 H (4.0-10.5) K/mm3 RBC 3.90 L (4.1-5.6) M/mm3 Hgb 12.7 (12.5-18.0) gm/dl Hct 38.9 L (42-50) % MCV 99.7 (78-100) fl MCH 32.5 H (26-32) pg MCHC 32.6 (32-36) g/dl RDW 13.0 (11.5-14.0) % Plt Count 234 (150-450) K/mm3 MPV 9.9 H (6-9.5) fl Segmented Neutrophils 83 H (36.-66.) % Band Neutrophils 3 H (0.0-2.0) % Lymphocytes (Manual) 10 L (24-44) % Monocytes (Manual) 4 (0.0-12.0) % Platelet Estimate NORMAL (NORMAL) RBC Morphology NORMAL Sodium 137 (137-145) mmol/L Potassium 4.6 (3.5-5.1) mmol/L Chloride 103 (98-107) mmol/L Carbon Dioxide 28 (22-30) mmol/L Anion Gap 11.8 (5-15) MEQ/L BUN 21 H (9-20) mg/dL Creatinine 0.74 (0.66-1.25) mg/dL Estimated GFR > 60.0 ML/MIN Glucose 177 H (74-106) mg/dL Calcium 9.0 (8.4-10.2) mg/dL Radiology Exams: Radiology Procedures Category Date Time Status CHEST 1 VIEW (PORTABLE) Stat Exams 01/02/19 11:14 Completed Assessment/Plan (1) Acute exacerbation of chronic obstructive airways disease Current Visit: Yes Status: Acute Assessment & Plan: Continue with IV antibiotics, IV steroids, bipap or oxygen as needed, breathing treatments. Dr. Carmen is following the patient as well. Code(s): J44.1 - CHRONIC OBSTRUCTIVE PULMONARY DISEASE W (ACUTE) EXACERBATION (2) Acute on chronic respiratory failure Current Visit: Yes Status: Acute Assessment & Plan: He is on oxygen at home also. Code(s): J96.20 - ACUTE AND CHR RESP FAILURE, UNSP W HYPOXIA OR HYPERCAPNIA (3) Pulmonary fibrosis Current Visit: Yes Status: Acute Code(s): J84.10 - PULMONARY FIBROSIS, UNSPECIFIED (4) CAD (coronary artery disease) Current Visit: Yes Status: Acute Assessment & Plan: Continue home medication. Code(s): I25.10 - ATHSCL HEART DISEASE OF [place] CORONARY ARTERY W/O ANG PCTRS (5) Hypertension Current Visit: Yes Status: Acute Assessment & Plan: Currently well controlled. Code(s): I10 - ESSENTIAL (PRIMARY) HYPERTENSION
[2019-01-04] MEDS: Ativan 2 MG/1 ML VIAL IV PRN ×2 (12:37→18:24)
[2019-01-04] MEDS: PATIENT OWN MEDICATION IH SCH (19:25)
[2019-01-04] MEDS: ZOCOR 20MG PO SCH (22:30)
[2019-01-04] MEDS: LEVOFLOXACIN 750MG/150ML D5W 750 MG/150 ML BAG IV SCH (22:30)
[2019-01-05] MEDS: Zosyn 3.375GM/100 Ml D5W 3.375 GM/100 ML IVPB IV SCH ×5 (00:09→23:28)
[2019-01-05] MEDS: solu-MEDROL 125 MG IV SCH ×5 (00:11→23:23)
[2019-01-05] MEDS: Ativan 2 MG/1 ML VIAL IV PRN ×3 (00:22→23:33)
[2019-01-05 05:56] LABS: ANION GAP 13.4 MEQ/L (5-15); BLOOD UREA NITROGEN 22 mg/dL (9-20); CHLORIDE 99 mmol/L (98-107); Calcium 8.7 mg/dL (8.4-10.2); Carbon Dioxide 28 mmol/L (22-30); Creatinine 1 0.69 mg/dL (0.66-1.25); Glucose 158 mg/dL (74-106); Potassium 4.6 mmol/L (3.5-5.1); SODIUM 136 mmol/L (137-145)
[2019-01-05 05:57] LABS: Hematocrit 40.4 % (42-50); Hemoglobin 13.3 gm/dl (12.5-18.0); Mean Cell Volume 98.8 fl (78-100); Mean Corpuscular Hemoglobin 32.5 pg (26-32); Mean Corpuscular Hgb Concent. 32.9 g/dl (32-36); Mean Platelet Volume 9.6 fl (6-9.5); Platelet Count 224 K/mm3 (150-450); Red Blood Count 4.09 M/mm3 (4.1-5.6); Red Cell Distribution Width 12.8 % (11.5-14.0); White Blood Count 12.2 K/mm3 (4.0-10.5)
[2019-01-05] MEDS: DUONEB 0.5-3 MG/3 ml Neb IH SCH ×4 (07:03→20:38)
[2019-01-05] MEDS: PATIENT OWN MEDICATION IH SCH ×2 (07:03→20:39)
--- NOTE | 2019-01-05 08:05 | HP ---
HISTORY OF PRESENT ILLNESS: This is a 58 year-old patient of mine with long history of tobacco abuse, pulmonary fibrosis, chronic hypoxic respiratory failure who also follows with creative consultant Dr. Farhad Guerrier. This morning the patient reports that his told him that he looked bad yesterday and tried to convince him to come to the hospital all day which he finally did in the evening. He reports he had a little bit of cough that was productive of a small amount of sputum. 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 He has been without them since Saturday. He is asking for some portable concentrator for his oxygen. He reports he quit smoking after he had hemoptysis with an attempted lung biopsy in November of 2018 at [facility]. I spoke with his creative consultant, Dr. Guerrier, and he agreed that the patient should not be driving although he reports there is no agency to report that to in the [facility] and he reports that he will follow up on the shadow that they saw on the CT for possible further evaluation of that. The patient's nurses note that he is more short of breath with activity. He used BiPAP for a few hours after his admission and was placed on OxyMask. REVIEW OF SYSTEMS: He denies chest pain. No lower extremity edema. No fever. No sick contacts. No nausea or vomiting. No abdominal pain. No rashes. PAST MEDICAL HISTORY: Asthma, chronic obstructive pulmonary disease, hypoxia on 3 liters nasal cannula. Idiopathic pulmonary fibrosis. PFT August 2017 with severe effusion defect. Hemoptysis during lung biopsy November 2018. Coronary artery disease, hyperlipidemia, hypertension. PAST SURGICAL HISTORY: Appendectomy, coronary artery bypass graft, history of surgery after his jaw broke, tonsillectomy. Last cardiac catheterization was 10/15/[address] Hall at [facility]. MEDICATIONS: Please see the medication reconciliation list which I reviewed. ALLERGIES: NKDA. SOCIAL HISTORY: He reports he quit smoking again November 2018 but has at least a 40 year pack history. He denies alcohol. He is . FAMILY HISTORY: His mother had coronary artery disease. His father had pancreatic cancer. PHYSICAL EXAMINATION: VITAL SIGNS: Temperature current 97.4F, temperature max 98.4F, heart rate 62 to 83, respiratory rate 22 to 32 currently 26, blood pressure 127/96. Oxygen saturation currently 96% on BiPAP with 100% oxygen. GENERAL: The patient when I saw him this morning was on the Oxymizer and he was sitting up in bed. He was able to talk in full sentences but was having some mild subcostal retractions. CVS: Heart has a regular rate and rhythm. CHEST: Clear bilaterally but distant breath sounds. ABDOMEN: Soft, nontender, nondistended with normal bowel sounds. EXTREMITIES: No clubbing, cyanosis or edema. SKIN: Warm, dry and intact. NEURO: He was alert, oriented and cooperative. LABORATORY DATA AND TESTS: On admission white blood cell count was 11,600 with 57% neutrophils, 31% lymphs 10% monocytes. CMP was within normal limits. He had two negative troponins. D-dimer was normal. BMP was normal. Influenza A, B and respiratory syncytial virus were negative. Chest x-ray was read as cardiomegaly, coronary artery bypass graft surgery, chronic fibrosis scarring, osteopenia with no new acute cardiopulmonary abnormalities. Please see the radiologist's dictation for that report. I had a repeat portable done this a.m. with the same findings. ASSESSMENT AND PLAN: 1) CHRONIC OBSTRUCTIVE PULMONARY DISEASE EXACERBATION: He was started on Levaquin. Given his history of multiple hospitalizations I also started Zosyn as well as leukocytosis. I asked for a repeat CBC. Blood cultures are in lab. I have asked for a sputum culture. He is on IV steroids 80 mg IV every six hours and methylprednisolone. He had a repeat ABG that I requested done with a pO2 of 62 on 15 liter OxyMask so with that along with his subcostal retractions I asked them to place him back on BiPAP. He is saturating well on BiPAP at 100% oxygen. I discussed his case with Dr. Guerrier and if the patient does not improve will plan to transfer to one of the hospitals in [place]. I tried to consult the creative consultant that comes here, Dr. Jewel Carmen, but they said he was out of town and unavailable. I will chuloonawick the patient before his discharge that I do not think that he should be driving any heavy machinery unless cleared by his creative consultant and alligator hunter. 2) HISTORY OF CORONARY ARTERY DISEASE: Currently stable. He is having no chest pain. Will continue with home medications. 3) HYPERTENSION: Currently well controlled on his home medications. 4) CHRONIC HYPOXIC RESPIRATORY FAILURE: He uses oxygen at home. 5) PULMONARY FIBROSIS: Again he uses oxygen at home.
--- NOTE | 2019-01-05 08:53 | PCM.NOTE ---
Date and Time: 01/05/19 0853 Subjective Assessment: Patient reports he continues to have shortness of breath with movement. He had a stool yesterday. His appetite is good. - Review of Systems Constitutional: No Symptoms Eyes: No Symptoms Ears, Nose, & Throat: No Symptoms Respiratory: Cough, Short Of Breath, Wheezing Cardiac: No Symptoms Abdominal/Gastrointestinal: No Symptoms Genitourinary Symptoms: No Symptoms Musculoskeletal: No Symptoms Skin: No Symptoms Objective Exam General Appearance: no apparent distress, obese, other (short of breath with any movement) Neurologic Exam: alert, cooperative, normal mood/affect Skin Exam: normal color, warm, dry, No rash Respiratory Exam: other (distant breath sounds, few scattered wheezes, no crackles, no rhonchi) Cardiovascular Exam: regular rate/rhythm, normal heart sounds, No murmur, No friction rub, No gallop Gastrointestinal/Abdomen Exam: soft, normal bowel sounds, No tenderness, No distention, No mass Extremity Exam: other (no c/c/e) OBJECTIVE DATA Vital Signs: Vital Signs - 24 hr Temp Pulse Resp BP Pulse Ox 01/05/19 07:58 98.4 F 93 H 24 127/82 93 L 01/05/19 07:07 68 26 H 92 L 01/05/19 04:00 97.6 F 56 L 23 127/82 97 01/05/19 00:01 64 01/05/19 00:00 97.5 F 71 26 H 120/71 94 L 01/04/19 20:45 97.9 F 64 18 131/71 92 L 01/04/19 20:00 64 26 H 01/04/19 19:28 68 24 93 L 01/04/19 18:31 17 96 01/04/19 18:00 96.7 F 69 22 111/63 93 L 01/04/19 16:00 64 22 01/04/19 15:42 60 22 96 01/04/19 12:00 98.4 F 63 24 119/72 92 L 01/04/19 10:51 64 15 100 01/04/19 10:32 81 22 Oxygen-Last 24 hours O2 Percentage 50% O2 Percentage 50% O2 Percentage 50% O2 Percentage 70% Oxygen Flowrate (L/min)-RT 12 Oxygen Flowrate (L/min)-RT 12 Oxygen Flowrate (L/min)-RT 12 Pain Assessment - Last Documented Pain Intensity 0 Pain Scale Used 0-10 Pain Scale Intake and Output: Intake & Output 01/03/19 01/04/19 01/05/19 01/06/19 06:59 06:59 06:59 06:59 Intake Total 3143 1834 700 Output Total 1700 2350 1300 Balance 1443 -255 -600 Lab Results: Accuchecks Date 01/05/19 Date 01/04/19 Date 01/04/19 Time 21:50 Time 16:30 Time 11:30 Accucheck Value: 158 Accucheck Value: 248 Accucheck Value: 170 Accucheck Value: 229 Lab Results-Last 24 Hours 01/05/19 01/05/19 Range/Units 04:17 04:17 WBC 12.2 H (4.0-10.5) K/mm3 RBC 4.09 L (4.1-5.6) M/mm3 Hgb 13.3 (12.5-18.0) gm/dl Hct 40.4 L (42-50) % MCV 98.8 (78-100) fl MCH 32.5 H (26-32) pg MCHC 32.9 (32-36) g/dl RDW 12.8 (11.5-14.0) % Plt Count 224 (150-450) K/mm3 MPV 9.6 H (6-9.5) fl Sodium 136 L (137-145) mmol/L Potassium 4.6 (3.5-5.1) mmol/L Chloride 99 (98-107) mmol/L Carbon Dioxide 28 (22-30) mmol/L Anion Gap 13.4 (5-15) MEQ/L BUN 22 H (9-20) mg/dL Creatinine 0.69 (0.66-1.25) mg/dL Estimated GFR > 60.0 ML/MIN Glucose 158 H (74-106) mg/dL Calcium 8.7 (8.4-10.2) mg/dL Multi-Disciplinary Progress Notes: Multi-Disciplinary Progress Notes 01/05/19 04:03 Respiratory Note by Cr Galvan I CANCELLED THE PT OWN MED ORDER FOR [facility] PT NO LONGER TAKES THAT MEDICATION. FAMILY HAD BROUGHT IT IN THINKING IT WAS ONE THAT HE CONTINUES TO TAKE BUT IT HAS RECENTLY BEEN REPLACED BY [facility]. THE ORDER FOR THAT A PT MED IS NOW IN THE SYSTEM. Initialized on 01/05/19 04:03 - END OF NOTE Assessment/Plan (1) Acute exacerbation of chronic obstructive airways disease Current Visit: Yes Status: Acute Assessment & Plan: Continue IV steroids, oxygen, bipap as needed, breathing treatments and antibiotics. Dr. Sonu Carmen is following. Patient is very slowly improving clinically. Leukocytosis is most likely due to steroids. He has underlying pulmonary fibrosis so will always have some hypoxia. 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 Recommended considering disability and he stated he was not disabled. Due to desaturation and increased work of breathing with movement, I would like to have him continue to be in an ICU bed. Code(s): J44.1 - CHRONIC OBSTRUCTIVE PULMONARY DISEASE W (ACUTE) EXACERBATION (2) Acute on chronic respiratory failure Current Visit: Yes Status: Acute Assessment & Plan: He uses home oxygen but is on much more than he normally uses at home right now. Code(s): J96.20 - ACUTE AND CHR RESP FAILURE, UNSP W HYPOXIA OR HYPERCAPNIA (3) Pulmonary fibrosis Current Visit: Yes Status: Acute Code(s): J84.10 - PULMONARY FIBROSIS, UNSPECIFIED (4) CAD (coronary artery disease) Current Visit: Yes Status: Acute Assessment & Plan: Stable on his home medication. Code(s): I25.10 - ATHSCL HEART DISEASE OF [place] CORONARY ARTERY W/O ANG PCTRS (5) Hypertension Current Visit: Yes Status: Acute Assessment & Plan: Currently well controlled. Code(s): I10 - ESSENTIAL (PRIMARY) HYPERTENSION
[2019-01-05] MEDS: Protonix 40MG Tablet PO SCH (09:29)
[2019-01-05] MEDS: Cozaar 50 MG PO SCH (09:29)
[2019-01-05] MEDS: Coreg 3.125 MG PO SCH ×2 (09:29→20:55)
[2019-01-05] MEDS: Imdur 30 MG PO SCH (09:29)
[2019-01-05] MEDS: ECOTRIN 81 MG PO SCH (09:29)
[2019-01-05] MEDS: Effexor XR 75 MG PO SCH (09:29)
[2019-01-05] MEDS: ENOXAPARIN SODIUM SQ SCH (09:29)
[2019-01-05 09:42] LABS: ATYPICAL LYMPHS 2 %; Lymphocytes 21 % (24-44); Monocyte 6 % (0.0-12.0); Neutrophils 71 % (36.-66.); Platelet Estimate NORMAL (NORMAL); Total Cells Counted 100; Toxic Granulation 1+
--- NOTE | 2019-01-05 10:16 | CONS ---
CONSULT DATE: 01/03/2019 REASON FOR CONSULT: Evaluation of shortness of breath. HISTORY: Abhinav De La Cruz is a 58 year-old male with multiple health problems who has been hospitalized with complaint of cough, shortness of breath, wheezing that has been progressively getting worse for about four days prior to admission. The patient has been diagnosed with chronic obstructive pulmonary disease and pulmonary fibrosis along with chronic hypoxemia. He usually follows with Dr. Guerrier however he has not seen him in over six months. The patient reports that he had seen the physician at [facility] where a biopsy on the lung was attempted however this was complicated by some hemoptysis and had to be abandoned. It seems that it was possibly a CT guided biopsy. The patient has been on bronchodilator therapy. He recently gave up smoking just last month. Prior to that he had smoked two packs per day. His effort tolerance has been severely reduced. He has been usually on 2 liters of oxygen at home. However, he reportedly runs this on 3 liters to help him breathe easier. PAST MEDICAL HISTORY: Positive for chronic obstructive pulmonary disease, pulmonary fibrosis, hypertension, coronary artery disease, hyperlipidemia and anxiety. PAST SURGICAL HISTORY: He had open heart surgery in 2009 followed by respiratory assistant in [place]. MEDICATIONS: Home and current medications are reviewed. ALLERGIES: NKDA. PHYSICAL EXAMINATION: This is a middle aged male who appears tachypneic during conversation. Vital signs noted. HEENT: Normocephalic. Oral exam showed small oropharynx. NECK: Short, supple. CVS: First and second heart sounds are normal, regular, rhythmic. RESPIRATORY: Shows diminished breath sounds, crackles are heard. ABDOMEN: Obese. EXTREMITIES: Trace edema is noted. LABORATORY DATA AND TESTS: Cultures are pending. White count 13.7, hemoglobin 13.9, hematocrit 43, PLT 231,000. A1C 6.34. Sodium 142, potassium 5.6, chloride 105, bicarb 27, glucose 219, BUN 24, creatinine 0.8. The pH 7.40, pCO2 36, pO2 62 on 80% oxygen and BiPAP mask. D-dimer 406 which is negative. International normalized ratio negative. Influenza titers were negative as well. Chest x-ray reviewed. ASSESSMENT: This is a 58 year old male with multiple health problems admitted with shortness of breath which clearly appears to be multifactorial. 1) ACUTE ON CHRONIC HYPOXIC RESPIRATORY FAILURE. 2) CHRONIC OBSTRUCTIVE PULMONARY DISEASE EXACERBATION. 3) PULMONARY FIBROSIS LIKELY PROGRESSIVE. 4) BODY HABITUS SUGGESTIVE OF OBSTRUCTIVE SLEEP APNEA. 5) OBESITY WHICH IS CERTAINLY NOT HELPING IN TERMS OF SHORTNESS OF BREATH. 6) HISTORY OF CORONARY ARTERY DISEASE AND HAS UNDERGONE CORONARY ARTERY BYPASS GRAFT. 7) HISTORY OF HYPERTENSION. 8) ANXIETY. RECOMMENDATIONS: 1) The patient has shown improvement with BiPAP alternating with high flow alternating with supplemental oxygen. 2) Continue antibiotics, steroids, bronchodilators. 3) Cautious diuresis. 4) I agree with deep venous thrombosis prophylaxis. 5) The patient will require high resolution CT at some point when he is back to his normal baseline to assess the etiology of pulmonary fibrosis so hopefully he can be treated before symptoms get progressively worse. 6) In addition, he will benefit from continuation of bronchodilator, smoking abstinence and most importantly weight reduction. 7) I have also advised polysomnography. He may be able to get noninvasive ventilation at home which would also improve his symptoms to some extent. He has been advised to follow up with his regular bobbin disker upon discharge. I will be available if any questions remain unanswered. Thank you for allowing me to participate in the care of Abhinav De La Cruz.
[2019-01-05] MEDS: NovoLOG Insulin SQ PRN ×3 (11:37→22:25)
[2019-01-05] MEDS: ZOCOR 20MG PO SCH (20:55)
[2019-01-05] MEDS: LEVOFLOXACIN 750MG/150ML D5W 750 MG/150 ML BAG IV SCH (20:55)
[2019-01-06] MEDS: Zosyn 3.375GM/100 Ml D5W 3.375 GM/100 ML IVPB IV SCH ×3 (05:40→17:40)
[2019-01-06] MEDS: solu-MEDROL 125 MG IV SCH ×3 (05:40→17:35)
[2019-01-06 05:54] LABS: Hematocrit 41.1 % (42-50); Hemoglobin 13.5 gm/dl (12.5-18.0); Mean Cell Volume 99.3 fl (78-100); Mean Corpuscular Hemoglobin 32.6 pg (26-32); Mean Corpuscular Hgb Concent. 32.8 g/dl (32-36); Mean Platelet Volume 9.6 fl (6-9.5); Platelet Count 229 K/mm3 (150-450); Red Blood Count 4.14 M/mm3 (4.1-5.6); Red Cell Distribution Width 12.6 % (11.5-14.0); White Blood Count 11.9 K/mm3 (4.0-10.5)
[2019-01-06 06:11] LABS: ANION GAP 11.8 MEQ/L (5-15); BLOOD UREA NITROGEN 25 mg/dL (9-20); CHLORIDE 99 mmol/L (98-107); Carbon Dioxide 31 mmol/L (22-30); Glucose 222 mg/dL (74-106); SODIUM 136 mmol/L (137-145)
[2019-01-06 06:40] LABS: ATYPICAL LYMPHS 2 %; Lymphocytes 16 % (24-44); Monocyte 6 % (0.0-12.0); Neutrophils 76 % (36.-66.); Total Cells Counted 100
[2019-01-06 06:41] LABS: ANISOCYTOSIS 1+; Platelet Estimate NORMAL (NORMAL)
[2019-01-06] MEDS: DUONEB 0.5-3 MG/3 ml Neb IH SCH ×4 (06:58→19:57)
[2019-01-06] MEDS: NovoLOG Insulin SQ PRN ×4 (08:35→22:03)
--- NOTE | 2019-01-06 08:55 | PCM.NOTE ---
Date and Time: 01/06/19 0850 Subjective Assessment: Patient reports he is feeling better. He denies constipation. He does not have any other concerns. His appetite has been good. - Review of Systems Constitutional: No Symptoms Eyes: No Symptoms Ears, Nose, & Throat: No Symptoms Respiratory: Cough, Short Of Breath Cardiac: No Symptoms Abdominal/Gastrointestinal: No Symptoms Genitourinary Symptoms: No Symptoms Musculoskeletal: No Symptoms Skin: No Symptoms Neurological: No Symptoms Psychological: No Symptoms Objective Exam General Appearance: no apparent distress, obese Neurologic Exam: alert, cooperative Skin Exam: normal color, warm, dry, No rash Respiratory Exam: other (very mild subcostal retractions, very mild tachypnea), No rhonchi, No wheezing Cardiovascular Exam: regular rate/rhythm, normal heart sounds, No murmur, No friction rub, No gallop Gastrointestinal/Abdomen Exam: soft, normal bowel sounds, No tenderness, No distention, No mass Extremity Exam: other (no c/c/e) OBJECTIVE DATA Vital Signs: Vital Signs - 24 hr Temp Pulse Resp BP Pulse Ox 01/06/19 07:06 98.0 F 55 L 22 150/75 95 01/06/19 07:01 52 L 24 97 01/06/19 05:34 97.4 F 64 24 172/86 93 L 01/06/19 03:21 57 L 01/06/19 00:01 60 01/05/19 23:43 97.1 F 82 25 H 140/97 91 L 01/05/19 20:40 75 23 93 L 01/05/19 19:59 97.9 F 79 26 H 118/64 90 L 01/05/19 19:58 80 24 01/05/19 17:36 92 L 01/05/19 16:04 80 24 127/58 95 01/05/19 16:00 83 01/05/19 14:43 84 28 H 94 L 01/05/19 12:00 90 01/05/19 11:41 98.2 F 90 28 H 132/62 93 L 01/05/19 10:47 92 H 24 92 L Oxygen-Last 24 hours O2 Percentage 50% O2 Percentage 6 Liters = 44% O2 Percentage 5 Liters = 40% O2 Percentage 6 Liters = 44% Oxygen Flowrate (L/min)-RT 8 Pain Assessment - Last Documented Pain Intensity 0 Pain Scale Used 0-10 Pain Scale Intake and Output: Intake & Output 01/04/19 01/05/19 01/06/19 01/07/19 06:59 06:59 06:59 06:59 Intake Total 1299 672 3220 Output Total 2350 1300 900 Balance -516 -600 360 Weight 119.7 kg Lab Results: Accuchecks Date 01/05/19 Time 21:00 Accucheck Value: 222 Accucheck Value: 392 Accucheck Value: 246 Accucheck Value: 331 Lab Results-Last 24 Hours 01/05/19 01/06/19 01/06/19 Range/Units 04:17 05:22 05:22 WBC 11.9 H (4.0-10.5) K/mm3 RBC 4.14 (4.1-5.6) M/mm3 Hgb 13.5 (12.5-18.0) gm/dl Hct 41.1 L (42-50) % MCV 99.3 (78-100) fl MCH 32.6 H (26-32) pg MCHC 32.8 (32-36) g/dl RDW 12.6 (11.5-14.0) % Plt Count 229 (150-450) K/mm3 MPV 9.6 H (6-9.5) fl Segmented Neutrophils 71 H 76 H (36.-66.) % Lymphocytes (Manual) 21 L 16 L (24-44) % Monocytes (Manual) 6 6 (0.0-12.0) % Atypical Lymphocytes 2 2 % Toxic Granulation 1+ Platelet Estimate NORMAL NORMAL (NORMAL) RBC Morphology NORMAL ABNORMAL Anisocytosis 1+ Sodium 136 L (137-145) mmol/L Potassium 5.0 (3.5-5.1) mmol/L Chloride 99 (98-107) mmol/L Carbon Dioxide 31 H (22-30) mmol/L Anion Gap 11.8 (5-15) MEQ/L BUN 25 H (9-20) mg/dL Creatinine 0.80 (0.66-1.25) mg/dL Estimated GFR > 60.0 ML/MIN Glucose 222 H (74-106) mg/dL Calcium 9.0 (8.4-10.2) mg/dL Multi-Disciplinary Progress Notes: Multi-Disciplinary Progress Notes 01/05/19 13:00 Respiratory Note by Yari Hutchison CNA FOUND PT WITHOUT OXYGEN ON AT THIS TIME. O2 SAT 84-86% ON ROOM AIR. PT WAS THEN PLACED ON 8LPM OXYMIZER. O2 SAT INCREASED TO 92%. PT ENCOURAGED TO KEEP OXYGEN ON AT ALL TIMES. PT VERBALIZED UNDERSTANDING. Initialized on 01/05/19 13:00 - END OF NOTE Assessment/Plan (1) Acute exacerbation of chronic obstructive airways disease Current Visit: Yes Status: Acute Assessment & Plan: Continue IV antibiotics, IV steroids, Oxygen, bipap alternating with oxygen. Will try to start weaning IV steroids a little today. Code(s): J44.1 - CHRONIC OBSTRUCTIVE PULMONARY DISEASE W (ACUTE) EXACERBATION (2) Acute on chronic respiratory failure Current Visit: Yes Status: Acute Assessment & Plan: Will see if we can ask for noninvasive ventilation for him to have at home for at night or when he is sleeping. Code(s): J96.20 - ACUTE AND CHR RESP FAILURE, UNSP W HYPOXIA OR HYPERCAPNIA (3) Pulmonary fibrosis Current Visit: Yes Status: Acute Assessment & Plan: Plan for repeat Chest CT when he is more stable. Code(s): J84.10 - PULMONARY FIBROSIS, UNSPECIFIED (4) CAD (coronary artery disease) Current Visit: Yes Status: Acute Assessment & Plan: Stable on home medications. Code(s): I25.10 - ATHSCL HEART DISEASE OF [place] CORONARY ARTERY W/O ANG PCTRS (5) Hypertension Current Visit: Yes Status: Acute Assessment & Plan: Well controlled. Code(s): I10 - ESSENTIAL (PRIMARY) HYPERTENSION (6) Hyperglycemia Current Visit: Yes Status: Acute Assessment & Plan: Start lantus 10 units daily; may be due to steroids. Continue to monitor and also continue sliding scale. Code(s): R73.9 - HYPERGLYCEMIA, UNSPECIFIED
[2019-01-06] MEDS: Effexor XR 75 MG PO SCH (09:53)
[2019-01-06] MEDS: Protonix 40MG Tablet PO SCH (09:54)
[2019-01-06] MEDS: Cozaar 50 MG PO SCH (09:54)
[2019-01-06] MEDS: ECOTRIN 81 MG PO SCH (09:54)
[2019-01-06] MEDS: Imdur 30 MG PO SCH (09:54)
[2019-01-06] MEDS: Coreg 3.125 MG PO SCH ×2 (09:54→22:02)
[2019-01-06] MEDS: Lantus Insulin SQ SCH (09:57)
[2019-01-06] MEDS: ENOXAPARIN SODIUM SQ SCH (09:58)
[2019-01-06] MEDS: Ativan 2 MG/1 ML VIAL IV PRN ×2 (10:04→22:02)
[2019-01-06] MEDS: PATIENT OWN MEDICATION IH SCH (11:11)
[2019-01-06] MEDS: LEVOFLOXACIN 750MG/150ML D5W 750 MG/150 ML BAG IV SCH (21:44)
[2019-01-06] MEDS: ZOCOR 20MG PO SCH (22:02)
[2019-01-07] MEDS: Zosyn 3.375GM/100 Ml D5W 3.375 GM/100 ML IVPB IV SCH ×4 (00:06→16:51)
[2019-01-07] MEDS: solu-MEDROL 125 MG IV SCH ×4 (00:06→16:51)
[2019-01-07 05:16] LABS: Hematocrit 41.2 % (42-50); Hemoglobin 13.6 gm/dl (12.5-18.0); Mean Cell Volume 99.3 fl (78-100); Mean Corpuscular Hemoglobin 32.8 pg (26-32); Mean Platelet Volume 9.6 fl (6-9.5); Platelet Count 231 K/mm3 (150-450); Red Blood Count 4.15 M/mm3 (4.1-5.6); Red Cell Distribution Width 12.8 % (11.5-14.0); White Blood Count 13.6 K/mm3 (4.0-10.5)
[2019-01-07 05:34] LABS: ANION GAP 12.2 MEQ/L (5-15); BLOOD UREA NITROGEN 28 mg/dL (9-20); CHLORIDE 101 mmol/L (98-107); Calcium 8.8 mg/dL (8.4-10.2); Carbon Dioxide 31 mmol/L (22-30); Creatinine 1 0.76 mg/dL (0.66-1.25); Glucose 202 mg/dL (74-106); Potassium 5.1 mmol/L (3.5-5.1); SODIUM 139 mmol/L (137-145)
[2019-01-07] MEDS: DUONEB 0.5-3 MG/3 ml Neb IH SCH ×4 (07:02→19:40)
[2019-01-07] MEDS: PATIENT OWN MEDICATION IH SCH ×2 (07:02→19:42)
[2019-01-07 07:31] LABS: ATYPICAL LYMPHS 3 %; Lymphocytes 15 % (24-44); Monocyte 5 % (0.0-12.0); Neutrophils 77 % (36.-66.); Platelet Estimate NORMAL (NORMAL); Total Cells Counted 100; Toxic Granulation 1+
[2019-01-07] MEDS: Lantus Insulin SQ SCH (07:32)
[2019-01-07] MEDS: NovoLOG Insulin SQ PRN ×4 (07:33→21:26)
--- NOTE | 2019-01-07 08:49 | PCM.NOTE ---
Date and Time: 01/07/19 0844 Subjective Assessment: Patient reports he slept well, appetite is good, denies constipation and feels like he might have a stool today. principal planner is working on paper work for noninvasive ventilation at home and has paper work that Dr. Sonu Choi will need to fill out for this and beverage steward reports he is coming to follow up on patient today. Patient reports his breathing is better than when he came in. His sputum culture is growing an organism that was sent to reference lab for ID and sensitivity. - Review of Systems Constitutional: No Symptoms Eyes: No Symptoms, Foreign Body Sensation Respiratory: Cough, Short Of Breath Cardiac: No Symptoms Abdominal/Gastrointestinal: No Symptoms Genitourinary Symptoms: No Symptoms Musculoskeletal: No Symptoms Skin: No Symptoms Objective Exam General Appearance: no apparent distress, alert, obese Neurologic Exam: alert, cooperative Skin Exam: normal color, warm, dry, No rash Respiratory Exam: other (distant breath sounds), No crackles/rales, No rhonchi, No wheezing Cardiovascular Exam: regular rate/rhythm, normal heart sounds, No murmur, No friction rub, No gallop Gastrointestinal/Abdomen Exam: soft, normal bowel sounds, No tenderness Extremity Exam: other (no c/c/e) OBJECTIVE DATA Vital Signs: Vital Signs - 24 hr Temp Pulse Resp BP Pulse Ox 01/07/19 07:39 22 01/07/19 07:27 97.8 F 78 22 138/62 96 01/07/19 07:05 58 L 22 91 L 01/07/19 05:00 97.4 F 66 24 148/80 92 L 01/07/19 00:19 97.9 F 62 24 135/61 96 01/07/19 00:00 24 01/06/19 21:00 98.2 F 67 25 H 140/79 92 L 01/06/19 20:00 25 H 01/06/19 19:57 91 H 26 H 90 L 01/06/19 16:30 87 26 H 95 01/06/19 16:14 87 22 145/73 94 L 01/06/19 12:55 98.3 F 90 18 117/69 96 01/06/19 12:09 90 26 H 85 L Oxygen-Last 24 hours O2 Percentage 6 Liters = 44% O2 Percentage 6 Liters = 44% O2 Percentage 50% O2 Percentage 6 Liters = 44% O2 Percentage 50% O2 Percentage 50% Pain Assessment - Last Documented Pain Intensity 0 Pain Scale Used 0-10 Pain Scale Intake and Output: Intake & Output 01/05/19 01/06/19 01/07/19 01/08/19 06:59 06:59 06:59 06:59 Intake Total 700 1260 1251 360 Output Total 1300 900 500 Balance -600 360 751 360 Weight 119.7 kg Lab Results: Accuchecks Date 01/07/19 Date 01/06/19 Time 05:00 Time 21:30 Accucheck Value: 331 Accucheck Value: 364 Accucheck Value: 417 Lab Results-Last 24 Hours 01/07/19 01/07/19 Range/Units 05:00 05:00 WBC 13.6 H (4.0-10.5) K/mm3 RBC 4.15 (4.1-5.6) M/mm3 Hgb 13.6 (12.5-18.0) gm/dl Hct 41.2 L (42-50) % MCV 99.3 (78-100) fl MCH 32.8 H (26-32) pg MCHC 33.0 (32-36) g/dl RDW 12.8 (11.5-14.0) % Plt Count 231 (150-450) K/mm3 MPV 9.6 H (6-9.5) fl Segmented Neutrophils 77 H (36.-66.) % Lymphocytes (Manual) 15 L (24-44) % Monocytes (Manual) 5 (0.0-12.0) % Atypical Lymphocytes 3 % Toxic Granulation 1+ Platelet Estimate NORMAL (NORMAL) RBC Morphology NORMAL Sodium 139 (137-145) mmol/L Potassium 5.1 (3.5-5.1) mmol/L Chloride 101 (98-107) mmol/L Carbon Dioxide 31 H (22-30) mmol/L Anion Gap 12.2 (5-15) MEQ/L BUN 28 H (9-20) mg/dL Creatinine 0.76 (0.66-1.25) mg/dL Estimated GFR > 60.0 ML/MIN Glucose 202 H (74-106) mg/dL Calcium 8.8 (8.4-10.2) mg/dL Multi-Disciplinary Progress Notes: Multi-Disciplinary Progress Notes 01/06/19 09:57 Case Management Note by Ángela Hale DOCUMENTATION SENT TO [place] AT [facility] FOR TRILOGY MACHINE. Initialized on 01/06/19 09:57 - END OF NOTE Assessment/Plan (1) Acute exacerbation of chronic obstructive airways disease Current Visit: Yes Status: Acute Assessment & Plan: Continue IV antibiotics Day 7 (plan for 10 days); IV steroids were weaned a little yesterday; he continues to have fairly large oxygen requirement. Dr. Sonu Flores, pulmonology, following. Continue breathing treatments. Code(s): J44.1 - CHRONIC OBSTRUCTIVE PULMONARY DISEASE W (ACUTE) EXACERBATION (2) Acute on chronic respiratory failure Current Visit: Yes Status: Acute Code(s): J96.20 - ACUTE AND CHR RESP FAILURE, UNSP W HYPOXIA OR HYPERCAPNIA (3) Pulmonary fibrosis Current Visit: Yes Status: Acute Assessment & Plan: Will need CT scan of chest in future per plant production manager and follow up with regular plant production manager as outpatient. Code(s): J84.10 - PULMONARY FIBROSIS, UNSPECIFIED (4) CAD (coronary artery disease) Current Visit: Yes Status: Acute Assessment & Plan: Stable on home medications. Code(s): I25.10 - ATHSCL HEART DISEASE OF [place] CORONARY ARTERY W/O ANG PCTRS (5) Hypertension Current Visit: Yes Status: Acute Assessment & Plan: Currently fairly well controlled. Continue current medications. Code(s): I10 - ESSENTIAL (PRIMARY) HYPERTENSION (6) Hyperglycemia Current Visit: Yes Status: Acute Assessment & Plan: Increase lantus from 10 units to 20 units. Continue sliding scale. Hgb A1C was a little bit high at 6.3. Most likely due to steroids. Code(s): R73.9 - HYPERGLYCEMIA, UNSPECIFIED
[2019-01-07] MEDS: ECOTRIN 81 MG PO SCH (09:00)
[2019-01-07] MEDS: ENOXAPARIN SODIUM SQ SCH (09:00)
[2019-01-07] MEDS: Coreg 3.125 MG PO SCH ×2 (09:01→21:22)
[2019-01-07] MEDS: Cozaar 50 MG PO SCH (09:01)
[2019-01-07] MEDS: Effexor XR 75 MG PO SCH (09:01)
[2019-01-07] MEDS: Imdur 30 MG PO SCH (09:01)
[2019-01-07] MEDS: Protonix 40MG Tablet PO SCH (09:02)
[2019-01-07] MEDS: Ativan 2 MG/1 ML VIAL IV PRN ×2 (09:09→21:22)
[2019-01-07] MEDS: ZOCOR 20MG PO SCH (21:22)
[2019-01-07] MEDS: LEVOFLOXACIN 750MG/150ML D5W 750 MG/150 ML BAG IV SCH (21:22)
[2019-01-08] MEDS: solu-MEDROL 125 MG IV SCH ×4 (00:37→17:14)
[2019-01-08] MEDS: Zosyn 3.375GM/100 Ml D5W 3.375 GM/100 ML IVPB IV SCH ×4 (00:37→17:11)
[2019-01-08] MEDS: DUONEB 0.5-3 MG/3 ml Neb IH SCH ×4 (06:19→19:37)
[2019-01-08] MEDS: Lantus Insulin SQ SCH (07:54)
[2019-01-08] MEDS: NovoLOG Insulin SQ PRN ×4 (07:55→21:11)
--- NOTE | 2019-01-08 08:02 | PCM.NOTE ---
Date and Time: 01/08/19 0759 Subjective Assessment: He reports he continues to have shortness of breath but he is feeling better. His nurse and RT have been unable to wean him down to nasal cannula. Dr. Carmen saw him again yesterday per patient's report. Patient continues to have a good appetite. Talked about not drinking regular pop to try to keep blood glucoses down. - Review of Systems Constitutional: No Symptoms Eyes: No Symptoms Ears, Nose, & Throat: No Symptoms Respiratory: Cough, Short Of Breath Cardiac: No Symptoms Abdominal/Gastrointestinal: No Symptoms Genitourinary Symptoms: No Symptoms Musculoskeletal: No Symptoms Skin: No Symptoms Objective Exam General Appearance: no apparent distress Neurologic Exam: alert, cooperative, normal mood/affect Skin Exam: normal color, warm, dry, No rash Respiratory Exam: normal breath sounds, lungs clear, No crackles/rales, No rhonchi, No wheezing Cardiovascular Exam: regular rate/rhythm, normal heart sounds, No murmur, No friction rub, No gallop Gastrointestinal/Abdomen Exam: soft, normal bowel sounds, No tenderness, No distention, No mass Extremity Exam: other (no c/c/e) OBJECTIVE DATA Vital Signs: Vital Signs - 24 hr Temp Pulse Resp BP BP Pulse Ox 01/08/19 07:19 97.8 F 58 L 22 138/72 66 L 01/08/19 06:25 57 L 18 97 01/08/19 06:00 97.8 F 59 L 22 150/72 97 01/08/19 04:00 24 01/08/19 00:57 98.7 F 84 26 H 135/76 95 01/08/19 00:00 26 H 01/07/19 20:19 97.6 F 71 24 125/68 92 L 01/07/19 20:00 24 01/07/19 19:43 86 20 92 L 01/07/19 18:25 20 93 L 01/07/19 16:00 97.5 F 90 24 149/80 89 L 01/07/19 14:31 79 24 93 L 01/07/19 13:32 97.6 F 66 22 119/64 97 01/07/19 12:00 19 01/07/19 11:26 58 L 19 96 01/07/19 10:13 60 22 96 Oxygen-Last 24 hours O2 Percentage 50% O2 Percentage 50% O2 Percentage 6 Liters = 44% O2 Percentage 5 Liters = 40% O2 Percentage 5 Liters = 40% O2 Percentage 6 Liters = 44% O2 Percentage 50% Pain Assessment - Last Documented Pain Intensity 0 Pain Scale Used 0-10 Pain Scale Intake and Output: Intake & Output 01/06/19 01/07/19 01/08/19 01/09/19 06:59 06:59 06:59 06:59 Intake Total 1260 1251 1722 Output Total 900 500 400 Balance 704 921 3771 Weight 119.7 kg Lab Results: Accuchecks Date 01/08/19 Date 01/07/19 Date 01/07/19 Date 01/07/19 Time 07:30 Time 22:00 Time 16:30 Time 11:30 Accucheck Value: 209 Accucheck Value: 283 Accucheck Value: 233 Accucheck Value: 303 Assessment/Plan (1) Acute exacerbation of chronic obstructive airways disease Current Visit: Yes Status: Acute Assessment & Plan: Continue IV antibiotics Day 8. Continue IV steroids and also breathing treatments and oxygen. Code(s): J44.1 - CHRONIC OBSTRUCTIVE PULMONARY DISEASE W (ACUTE) EXACERBATION (2) Acute on chronic respiratory failure Current Visit: Yes Status: Acute Assessment & Plan: Dr. Nella schmitz. Code(s): J96.20 - ACUTE AND CHR RESP FAILURE, UNSP W HYPOXIA OR HYPERCAPNIA (3) Pulmonary fibrosis Current Visit: Yes Status: Acute Code(s): J84.10 - PULMONARY FIBROSIS, UNSPECIFIED (4) CAD (coronary artery disease) Current Visit: Yes Status: Acute Assessment & Plan: Stable on home medication. Code(s): I25.10 - ATHSCL HEART DISEASE OF [place] CORONARY ARTERY W/O ANG PCTRS (5) Hypertension Current Visit: Yes Status: Acute Assessment & Plan: Well controlled on current medication. Code(s): I10 - ESSENTIAL (PRIMARY) HYPERTENSION (6) Hyperglycemia Current Visit: Yes Status: Acute Assessment & Plan: Continue insulin. I have asked patient not to drink regular pop. Code(s): R73.9 - HYPERGLYCEMIA, UNSPECIFIED
[2019-01-08] MEDS: ECOTRIN 81 MG PO SCH (09:57)
[2019-01-08] MEDS: Cozaar 50 MG PO SCH (09:57)
[2019-01-08] MEDS: Imdur 30 MG PO SCH (09:57)
[2019-01-08] MEDS: Effexor XR 75 MG PO SCH (09:58)
[2019-01-08] MEDS: Coreg 3.125 MG PO SCH ×2 (09:58→21:11)
[2019-01-08] MEDS: Protonix 40MG Tablet PO SCH (09:58)
[2019-01-08] MEDS: ENOXAPARIN SODIUM SQ SCH (09:58)
[2019-01-08] MEDS: PATIENT OWN MEDICATION IH SCH (10:55)
[2019-01-08] MEDS: Ativan 2 MG/1 ML VIAL IV PRN ×2 (14:10→21:10)
[2019-01-08] MEDS ORDERED: DIFLUCAN PO ONE (17:20)
[2019-01-08] MEDS: LEVOFLOXACIN 750MG/150ML D5W 750 MG/150 ML BAG IV SCH (21:10)
[2019-01-08] MEDS: ZOCOR 20MG PO SCH (21:10)
[2019-01-09] MEDS: solu-MEDROL 125 MG IV SCH ×4 (02:50→20:59)
[2019-01-09] MEDS: Zosyn 3.375GM/100 Ml D5W 3.375 GM/100 ML IVPB IV SCH ×5 (02:51→22:52)
[2019-01-09] MEDS: Ativan 2 MG/1 ML VIAL IV PRN ×3 (03:31→20:59)
[2019-01-09] MEDS: DUONEB 0.5-3 MG/3 ml Neb IH SCH ×4 (06:57→19:31)
[2019-01-09] MEDS: PATIENT OWN MEDICATION IH SCH ×2 (07:34→19:34)
[2019-01-09] MEDS: Lantus Insulin SQ SCH (08:25)
--- NOTE | 2019-01-09 08:55 | PCM.NOTE ---
Date and Time: 01/09/19 0850 Subjective Assessment: Patient reports he does not like to wear his cpap at home and does not plan to wear it. He did not qualify for the Common Sensing machine. He has been eating and drinking well. He often takes his oxygen off in the room. RT reports he desturates with exertion no mater what amount of oxygen he is on. 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 - Review of Systems Constitutional: No Symptoms Eyes: No Symptoms Ears, Nose, & Throat: No Symptoms Respiratory: Short Of Breath Objective Exam General Appearance: other (mild tachypnea) Neurologic Exam: alert, cooperative, normal mood/affect Skin Exam: normal color, warm, dry, No rash Respiratory Exam: normal breath sounds, No rhonchi, No wheezing, No stridor Cardiovascular Exam: regular rate/rhythm, normal heart sounds, No murmur, No friction rub, No gallop Gastrointestinal/Abdomen Exam: soft, normal bowel sounds, No tenderness, No distention, No mass Extremity Exam: other (no c/c/e) OBJECTIVE DATA Vital Signs: Vital Signs - 24 hr Temp Pulse Resp BP Pulse Ox 01/09/19 07:26 97.1 F 58 L 20 147/76 99 01/09/19 06:58 66 22 99 01/09/19 04:00 97.9 F 65 23 131/72 98 01/09/19 00:31 98.0 F 81 22 143/78 99 01/09/19 00:00 20 01/08/19 20:00 98.1 F 91 H 20 143/91 93 L 01/08/19 19:39 106 H 24 81 L 01/08/19 16:30 97.8 F 86 24 131/69 91 L 01/08/19 16:00 20 01/08/19 15:07 87 24 92 L 01/08/19 12:29 97.6 F 97 H 24 125/84 92 L 01/08/19 12:00 20 01/08/19 11:18 90 L 01/08/19 11:11 96 H 28 H 84 L Oxygen-Last 24 hours O2 Percentage 5 Liters = 40% O2 Percentage 5 Liters = 40% Pain Assessment - Last Documented Pain Intensity 0 Pain Scale Used FLACC Intake and Output: Intake & Output 01/07/19 01/08/19 01/09/19 01/10/19 06:59 06:59 06:59 06:59 Intake Total 1251 1722 1133 Output Total 500 400 Balance 751 1322 1133 Lab Results: Accuchecks Date 01/08/19 Date 01/08/19 Date 01/08/19 Time 21:10 Time 16:30 Time 11:30 Accucheck Value: 263 Accucheck Value: 221 Accucheck Value: 300 Multi-Disciplinary Progress Notes: Multi-Disciplinary Progress Notes 01/09/19 08:34 Respiratory Note by Nay Lacy spo2 on n./c 4lpm 91% Initialized on 01/09/19 08:34 - END OF NOTE 01/09/19 08:24 Respiratory Note by Nay Lacy PT PLACED ON N/C 4LPM Initialized on 01/09/19 08:24 - END OF NOTE 01/08/19 16:45 Physical Therapy Note by Leticia Guan PATIENT NEEDS OXYMIZER AT 6L TO MAINTAIN 90-92% O2 SAT DURING PACED ACTIVITY - WALKING AND SEATED STEPPER. ALSO NEEDS VERBAL CUES AND KALPANA FOR DEEP BREATHING SEQUENCING TO IMPROVE AIR EXCHANGE. Initialized on 01/08/19 16:45 - END OF NOTE Assessment/Plan (1) Acute exacerbation of chronic obstructive airways disease Current Visit: Yes Status: Acute Assessment & Plan: Continue IV antibiotics, try to wean IV steroids; continue to try to wean oxygen. Dr. Sonu Carmen has been following. Overall prognosis is poor for intermission coordinator due to noncompliance at home with oxygen and cpap. Code(s): J44.1 - CHRONIC OBSTRUCTIVE PULMONARY DISEASE W (ACUTE) EXACERBATION (2) Acute on chronic respiratory failure Current Visit: Yes Status: Acute Code(s): J96.20 - ACUTE AND CHR RESP FAILURE, UNSP W HYPOXIA OR HYPERCAPNIA (3) Pulmonary fibrosis Current Visit: Yes Status: Acute Code(s): J84.10 - PULMONARY FIBROSIS, UNSPECIFIED (4) CAD (coronary artery disease) Current Visit: Yes Status: Acute Assessment & Plan: Well controlled on current medication. Code(s): I25.10 - ATHSCL HEART DISEASE OF [place] CORONARY ARTERY W/O ANG PCTRS (5) Hypertension Current Visit: Yes Status: Acute Assessment & Plan: Well controlled. Code(s): I10 - ESSENTIAL (PRIMARY) HYPERTENSION (6) Hyperglycemia Current Visit: Yes Status: Acute Assessment & Plan: Continue lantus; continue diabetic diet. Code(s): R73.9 - HYPERGLYCEMIA, UNSPECIFIED
[2019-01-09] MEDS: Effexor XR 75 MG PO SCH (10:51)
[2019-01-09] MEDS: Imdur 30 MG PO SCH (10:51)
[2019-01-09] MEDS: Cozaar 50 MG PO SCH (10:51)
[2019-01-09] MEDS: ECOTRIN 81 MG PO SCH (10:51)
[2019-01-09] MEDS: Protonix 40MG Tablet PO SCH (10:52)
[2019-01-09] MEDS: Coreg 3.125 MG PO SCH ×2 (10:53→20:59)
[2019-01-09] MEDS: ENOXAPARIN SODIUM SQ SCH (10:55)
[2019-01-09] MEDS: NovoLOG Insulin SQ PRN ×2 (13:15→16:52)
[2019-01-09] MEDS: LEVOFLOXACIN 750MG/150ML D5W 750 MG/150 ML BAG IV SCH (20:58)
[2019-01-09] MEDS: ZOCOR 20MG PO SCH (20:59)
[2019-01-10] MEDS: solu-MEDROL 125 MG IV SCH ×3 (06:09→21:04)
[2019-01-10] MEDS: Zosyn 3.375GM/100 Ml D5W 3.375 GM/100 ML IVPB IV SCH ×4 (06:09→23:08)
[2019-01-10] MEDS: DUONEB 0.5-3 MG/3 ml Neb IH SCH ×4 (07:53→19:02)
[2019-01-10] MEDS: PATIENT OWN MEDICATION IH SCH ×2 (07:55→19:03)
[2019-01-10] MEDS: Lantus Insulin SQ SCH (08:50)
[2019-01-10] MEDS: Coreg 3.125 MG PO SCH ×2 (09:13→21:03)
[2019-01-10] MEDS: ECOTRIN 81 MG PO SCH (09:13)
[2019-01-10] MEDS: Cozaar 50 MG PO SCH (09:13)
[2019-01-10] MEDS: Effexor XR 75 MG PO SCH (09:13)
[2019-01-10] MEDS: ENOXAPARIN SODIUM SQ SCH (09:13)
[2019-01-10] MEDS: Protonix 40MG Tablet PO SCH (09:13)
[2019-01-10] MEDS: Imdur 30 MG PO SCH (09:13)
[2019-01-10] MEDS: Ativan 2 MG/1 ML VIAL IV PRN ×3 (09:15→21:04)
[2019-01-10] MEDS: NovoLOG Insulin SQ PRN ×2 (12:10→21:04)
[2019-01-10] MEDS: Sodium Chloride 0.9% 1000 ML 1,000 ML IV SCH (13:38)
[2019-01-10] MEDS: ZOCOR 20MG PO SCH (21:03)
[2019-01-10] MEDS: LEVOFLOXACIN 750MG/150ML D5W 750 MG/150 ML BAG IV SCH (21:05)
[2019-01-11] MEDS: solu-MEDROL 125 MG IV SCH (05:54)
[2019-01-11] MEDS: Zosyn 3.375GM/100 Ml D5W 3.375 GM/100 ML IVPB IV SCH ×4 (05:54→22:55)
[2019-01-11] MEDS: DUONEB 0.5-3 MG/3 ml Neb IH SCH ×4 (07:16→19:33)
[2019-01-11] MEDS: PATIENT OWN MEDICATION IH SCH ×2 (07:21→19:35)
[2019-01-11] MEDS: Lantus Insulin SQ SCH (08:13)
[2019-01-11] MEDS: Cozaar 50 MG PO SCH (08:15)
[2019-01-11] MEDS: Protonix 40MG Tablet PO SCH (08:15)
[2019-01-11] MEDS: Coreg 3.125 MG PO SCH ×2 (08:16→21:05)
[2019-01-11] MEDS: Imdur 30 MG PO SCH (08:16)
[2019-01-11] MEDS: Effexor XR 75 MG PO SCH (08:17)
[2019-01-11] MEDS: ENOXAPARIN SODIUM SQ SCH (08:17)
[2019-01-11] MEDS: ECOTRIN 81 MG PO SCH (08:17)
[2019-01-11] MEDS: Ativan 2 MG/1 ML VIAL IV PRN ×3 (08:21→22:56)
[2019-01-11] MEDS: NovoLOG Insulin SQ PRN ×2 (12:40→17:05)
[2019-01-11] MEDS: Sodium Chloride 0.9% 1000 ML 1,000 ML IV SCH (20:56)
[2019-01-11] MEDS: LEVOFLOXACIN 750MG/150ML D5W 750 MG/150 ML BAG IV SCH (21:04)
[2019-01-11] MEDS: solu-MEDROL 40 MG IV SCH (21:05)
[2019-01-11] MEDS: ZOCOR 20MG PO SCH (21:05)
[2019-01-12] MEDS: Ativan 2 MG/1 ML VIAL IV PRN ×2 (05:36→11:52)
[2019-01-12] MEDS: Zosyn 3.375GM/100 Ml D5W 3.375 GM/100 ML IVPB IV SCH (05:37)
[2019-01-12 05:57] LABS: Hematocrit 42.8 % (42-50); Mean Cell Volume 98.8 fl (78-100); Mean Corpuscular Hemoglobin 32.3 pg (26-32); Mean Corpuscular Hgb Concent. 32.7 g/dl (32-36); Mean Platelet Volume 9.6 fl (6-9.5); Platelet Count 213 K/mm3 (150-450); Red Blood Count 4.33 M/mm3 (4.1-5.6); White Blood Count 17.9 K/mm3 (4.0-10.5)
[2019-01-12 06:25] LABS: ALBUMIN 3.2 g/dL (3.5-5.0); ALKALINE PHOSPHATASE 54 U/L (38-126); ANION GAP 13.5 MEQ/L (5-15); BLOOD UREA NITROGEN 37 mg/dL (9-20); CHLORIDE 98 mmol/L (98-107); Calcium 8.6 mg/dL (8.4-10.2); Carbon Dioxide 27 mmol/L (22-30); Creatinine 1 0.88 mg/dL (0.66-1.25); Glucose 155 mg/dL (74-106); Potassium 5.1 mmol/L (3.5-5.1); SGOT/AST 98 U/L (17-59); SGPT/ALT 216 U/L (0-50); SODIUM 134 mmol/L (137-145); Total Protein 5.8 g/dL (6.3-8.2)
[2019-01-12] MEDS: PATIENT OWN MEDICATION IH SCH (07:27)
[2019-01-12] MEDS: DUONEB 0.5-3 MG/3 ml Neb IH SCH ×2 (07:27→10:33)
[2019-01-12] MEDS: Lantus Insulin SQ SCH (08:16)
--- NOTE | 2019-01-12 08:54 | PCM.NOTE ---
Date and Time: 01/12/19 0854 OBJECTIVE DATA Vital Signs: Vital Signs - 24 hr Temp Pulse Resp BP Pulse Ox 01/12/19 08:00 98 F 61 22 120/79 92 L 01/12/19 07:31 61 22 92 L 01/12/19 04:00 20 01/12/19 03:59 97.9 F 66 17 124/62 96 01/11/19 23:10 20 01/11/19 23:08 97.9 F 69 20 115/60 92 L 01/11/19 19:51 97.5 F 93 H 22 130/58 92 L 01/11/19 19:38 94 H 22 91 L 01/11/19 16:00 98.2 F 107 H 22 130/88 92 L 01/11/19 14:41 66 20 96 01/11/19 12:00 92 H 18 126/64 98 01/11/19 11:06 66 20 96 Oxygen-Last 24 hours O2 Percentage 4 Liters = 36% O2 Percentage 4 Liters = 36% O2 Percentage 2 Liters = 28% O2 Percentage 5 Liters = 40% Oxygen Flowrate (L/min)-RT 4 Pain Assessment - Last Documented Pain Intensity 0 Pain Scale Used 0-10 Pain Scale Intake and Output: Intake & Output 01/10/19 01/11/19 01/12/19 01/13/19 06:59 06:59 06:59 06:59 Intake Total 1101 646 6453 Balance 7641 827 0893 Lab Results: Accuchecks Date 01/11/19 Time 21:28 Accucheck Value: 132 Accucheck Value: 268 Accucheck Value: 240 Lab Results-Last 24 Hours 01/12/19 01/12/19 Range/Units 05:16 05:16 WBC 17.9 H (4.0-10.5) K/mm3 RBC 4.33 (4.1-5.6) M/mm3 Hgb 14.0 (12.5-18.0) gm/dl Hct 42.8 (42-50) % MCV 98.8 (78-100) fl MCH 32.3 H (26-32) pg MCHC 32.7 (32-36) g/dl RDW 13.0 (11.5-14.0) % Plt Count 213 (150-450) K/mm3 MPV 9.6 H (6-9.5) fl Sodium 134 L (137-145) mmol/L Potassium 5.1 (3.5-5.1) mmol/L Chloride 98 (98-107) mmol/L Carbon Dioxide 27 (22-30) mmol/L Anion Gap 13.5 (5-15) MEQ/L BUN 37 H (9-20) mg/dL Creatinine 0.88 (0.66-1.25) mg/dL Estimated GFR > 60.0 ML/MIN Glucose 155 H (74-106) mg/dL Calcium 8.6 (8.4-10.2) mg/dL Total Bilirubin 0.50 (0.2-1.3) mg/dL AST 98 H (17-59) U/L ALT 216 H (0-50) U/L Alkaline Phosphatase 54 (38-126) U/L Serum Total Protein 5.8 L (6.3-8.2) g/dL Albumin 3.2 L (3.5-5.0) g/dL Assessment/Plan (1) Acute exacerbation of chronic obstructive airways disease Current Visit: Yes Status: Acute Code(s): J44.1 - CHRONIC OBSTRUCTIVE PULMONARY DISEASE W (ACUTE) EXACERBATION (2) Acute on chronic respiratory failure Current Visit: Yes Status: Acute Code(s): J96.20 - ACUTE AND CHR RESP FAILURE, UNSP W HYPOXIA OR HYPERCAPNIA (3) Pulmonary fibrosis Current Visit: Yes Status: Acute Code(s): J84.10 - PULMONARY FIBROSIS, UNSPECIFIED (4) CAD (coronary artery disease) Current Visit: Yes Status: Acute Code(s): I25.10 - ATHSCL HEART DISEASE OF [place] CORONARY ARTERY W/O ANG PCTRS (5) Hypertension Current Visit: Yes Status: Acute Code(s): I10 - ESSENTIAL (PRIMARY) HYPERTENSION (6) Hyperglycemia Current Visit: Yes Status: Acute Code(s): R73.9 - HYPERGLYCEMIA, UNSPECIFIED
[2019-01-12] MEDS ORDERED: Vibramycin 100 MG PO SCH (10:00)
[2019-01-12] MEDS: Coreg 3.125 MG PO SCH (10:01)
[2019-01-12] MEDS: Cozaar 50 MG PO SCH (10:02)
[2019-01-12] MEDS: ECOTRIN 81 MG PO SCH (10:02)
[2019-01-12] MEDS: ENOXAPARIN SODIUM SQ SCH (10:03)
[2019-01-12] MEDS: Effexor XR 75 MG PO SCH (10:03)
[2019-01-12] MEDS: Imdur 30 MG PO SCH (10:04)
[2019-01-12] MEDS: Protonix 40MG Tablet PO SCH (10:04)
[2019-01-12] MEDS: solu-MEDROL 40 MG IV SCH (10:04)
[2019-01-12 11:48] VITALS: BP 164/98; PULSE 118; O2SAT 95
--- NOTE | 2019-01-12 11:55 | PCM.DCORD ---
- Discharge Discharge Date: 01/12/19 Disposition: Home, Self-Care Condition: Fair Prescriptions: New Prednisone 20 mg [Deltasone 20 mg] 20 mg PO UD #15 tablet Doxycycline Hyclate 100 mg [Vibramycin 100 MG] 100 mg PO BID #19 tab Continue Albuterol Sulfate [Proair Hfa] 1 puff IH Q4H PRN PRN PRN Reason: Shortness Of Breath Aspirin 81 gm Chew [Baby Aspirin 81 mg Chew] 81 mg PO DAILY Venlafaxine HCl [Effexor] 225 mg PO DAILY Atorvastatin Calcium [Lipitor] 80 mg PO HS Isosorbide Mononitrate 30 mg [Imdur 30 MG] 30 mg PO DAILY Losartan Potassium 25 mg PO DAILY Carvedilol 3.125 mg [Coreg 3.125 MG] 3.125 mg PO BID Omeprazole 40 mg PO DAILY Albuterol/Ipratropium 3ml Neb* [DUONEB 0.5-3 MG/3 ml Neb] 1 puff IH Q4H PRN PRN PRN Reason: Shortness Of Breath Glycopyrrolate/Formoterol Fum [Bevespi Aerosphere Inhaler] 2 puff PO DAILY Discontinued Prednisone 10 mg [Deltasone 10 mg] 10 mg PO BID Additional Instructions: CPAP and home oxygen per Dr. Guerrier's orders. 4L of oxygen by nasal cannula during the day. You need to use the oxygen during the day at all times and cpap with oxygen when asleep. Do not drive. Avoid sugary drinks. Return to ER if chest pain, shortness of breath or any other concerns. Follow up with: AUREA GUERRIER [CONSULTING PHYSICIAN] - 1 Week TWYLA BRIZUELA [Primary Care Provider] - 1 Week
== END 2019-01-12 14:31 | disposition home or self-care (01) | DRG 190 ==
LOC: ED 18:35 → ICU 01-02 01:36 → OBSVTOIN 01-02 07:45 → MED SURG 01-07 14:23
PROVIDERS: ADMIT Internal Medicine; ATTEND Internal Medicine
DX: J44.1 Chronic obstructive pulmonary disease with (acute) exacerbation (principal); J96.21 Acute and chronic respiratory failure with hypoxia; R73.9 Hyperglycemia, unspecified; I10 Essential (primary) hypertension; E78.5 Hyperlipidemia, unspecified; J84.10 Pulmonary fibrosis, unspecified; E66.9 Obesity, unspecified; I25.10 Atherosclerotic heart disease of native coronary artery without angina pectoris; Z95.1 Presence of aortocoronary bypass graft; F41.9 Anxiety disorder, unspecified; Z79.899 Other long term (current) drug therapy; Z99.81 Dependence on supplemental oxygen
CPT/HCPCS: 36000; 36415; 36600; 71045; 80048; 80053; 82375; 82803; 82962; 83036; 83605; 83735; 83880; 84484; 85025; 85027; 85379; 85610; 87040; 87070; 87077; 87631; 93005; 93041; 94002; 94003; 94150; 94640; 94760; 94762; 95806; 96360; 96365; 96374; 99285; 99291; J1650; J1956; J2060; J2543; J2920; J2930; 97110-GP; A9270-GY; G0398

== ENCOUNTER 2020-04-20 11:27 | Inpatient (IN) | payer OTHER ==
[2020-04-20] MEDS ORDERED: solu-MEDROL 125 MG IV ONE (11:47)
[2020-04-20 11:51] LABS: A-aADO2 195; ABG HEMOGLOBIN 14.8; ABG POTASSIUM 4.3 (3.5-5.1); ABG SITE RIGHT RADIAL; ALLEN TEST OK? YES; ARTERIAL BLD GAS O2 SATURATION 95.2 % (95-100); ARTERIAL BLOOD GAS FIO2 44 %; ARTERIAL BLOOD GAS PCO2 39 mmHg (35-45); ARTERIAL BLOOD GAS PO2 70 mmHg (75-100); ARTERIAL BLOOD GAS pH 7.45 (7.35-7.45); CARBOXYHEMOGLOBIN 1.1 % THgb (0.0-6.9); HCO3- 27.1 (22-28); HGB O2 SAT 93.3 g/dF (94-100); Methhemoglobin 0.9 % (1.4-1.5); paO2 pAO1 0.26
[2020-04-20] MEDS ORDERED: solu-MEDROL 125 MG ONE (11:52)
--- NOTE | 2020-04-20 11:53 | ERPHSYRPT ---
- History of Present Illness Time Seen by Provider: 04/20/20 11:40 Source: patient, family Patient Subjective Stated Complaint: Pt states that he has been becoming more short of breath for the past 2-3 weeks, pain in the right upper lobe, pt has been on prednisone and a z-pack, pt has a hx of right lung cancer that was radiated Triage Nursing Assessment: Pt brought into the ER by his , lungs clear, pt was hypoxic upon arrival but is now at 95%, other vitals wnl, pulses normal, lungs clear, chest pain on the right, rates pain 4/10 in his chest, skin n/c/d Physician History: This is a 59-year-old white male who has a history of COPD, hypertension, coronary artery disease, gastroesophageal reflux disease and presents with worsening shortness of breath over 2 to 3 weeks. Patient has a history of right-sided lung cancer and received radiation therapy. He has post radiation pulmonary fibrosis. Patient completed 2 rounds of antibiotics and steroid combination within the last 2 to 3 weeks. Most recently he completed a Z-Manuelito and steroid therapy about 4 days ago. Symptoms of shortness of breath have worsened despite his 6 L of oxygen via nasal cannula. Patient sees Dr. Castillo his oncologist and Dr. Vernon his workers compensation claims specialist. Patient takes carvedilol, losartan, and isosorbide mono nitrate. He is currently not on any steroid therapy. Severity of Dyspnea-Max: moderate Severity of Dyspnea-Current: moderate Possible Cause: frequent episodes Associated Symptoms: chest pain/discomfort (r side) Allergies/Adverse Reactions: No Known Drug Allergies Allergy (Verified 04/20/20 11:42) Home Medications: Albuterol Sulfate [Proair Hfa] 1 puff IH Q4H PRN PRN 01/01/19 [History] Albuterol/Ipratropium 3ml Neb* [DUONEB 0.5-3 MG/3 ml Neb] 1 puff IH Q4H PRN PRN 01/01/19 [History] Aspirin 81 gm Chew [Baby Aspirin 81 mg Chew] 81 mg PO DAILY 01/01/19 [History] Atorvastatin Calcium [Lipitor] 80 mg PO HS 01/01/19 [History] Carvedilol 3.125 mg [Coreg 3.125 MG] 3.125 mg PO BID 01/01/19 [History] Isosorbide Mononitrate 30 mg [Imdur 30 MG] 30 mg PO DAILY 01/01/19 [History] Losartan Potassium 25 mg PO DAILY 01/01/19 [History] Omeprazole 20 mg PO DAILY 01/01/19 [History] Glycopyrrolate/Formoterol Fum [Bevespi Aerosphere Inhaler] 2 puff PO DAILY 01/02/19 [History] Budesonide/Formoterol Fumarate [Symbicort 160-4.5 Mcg Inhaler] 1 inh PO UD 04/20/20 [History] Fluoxetine HCl [Prozac] 40 mg PO DAILY 04/20/20 [History] Hydrocodone Bit/Acetaminophen [Hydrocodon-Acetaminophn 10-325] 1 each PO QID 04/20/20 [History] Metformin HCl Xr 500 mg [Glucophage XR 500 MG] 500 mg PO DAILY 04/20/20 [History] Hx Tetanus, Diphtheria Vaccination/Date Given: Yes (PT STATES UTD) Hx Influenza Vaccination/Date Given: Yes Hx Pneumococcal Vaccination/Date Given: No Travel Risk - International Travel Have you traveled outside of the country in past 3 weeks: No - Coronavirus Screening Are you exhibiting any of the following symptoms?: No Close contact with a COVID-19 positive Pt in past 14-21 Days: No - Review of Systems Constitutional: No Symptoms Eyes: No Symptoms Ears, Nose, & Throat: No Symptoms Respiratory: Dyspnea Cardiac: Chest Pain Abdominal/Gastrointestinal: No Symptoms Genitourinary Symptoms: No Symptoms Musculoskeletal: No Symptoms Skin: No Symptoms Neurological: No Symptoms Psychological: No Symptoms Endocrine: No Symptoms Hematologic/Lymphatic: No Symptoms Immunological/Allergic: No Symptoms All Other Systems: Reviewed and Negative - Past Medical History Pertinent Past Medical History: Yes Neurological History: No Pertinent History ENT History: No Pertinent History Cardiac History: Coronary Artery Disease, High Cholesterol, Hypertension Respiratory History: COPD, Emphysema Endocrine Medical History: No Pertinent History, Diabetes Type II Musculoskeletal History: No Pertinent History GI Medical History: No Pertinent History History: No Pertinent History Psycho-Social History: Depression Male Reproductive Disorders: No Pertinent History Other Medical History: AR 2009. - Past Surgical History Past Surgical History: Yes Neuro Surgical History: No Pertinent History Cardiac: CABG Respiratory: No Pertinent History Gastrointestinal: No Pertinent History Genitourinary: No Pertinent History Musculoskeletal: Orthopedic Surgery Male Surgical History: No Pertinent History Other Surgical History: BROKEN JAW 30 YEARS AGO - Social History Smoking Status: Former smoker How long have you smoked: 1 YEAR Exposure to second hand smoke: No Drug Use: none Patient Lives Alone: No - Nursing Vital Signs Nursing Vital Signs: Initial Vital Signs Pulse Rate 71 04/20/20 11:28 Respiratory Rate 23 04/20/20 11:28 Blood Pressure 146/83 04/20/20 11:28 O2 Sat by Pulse Oximetry 90 L 04/20/20 11:28 Pain Scale Pain Intensity 2 - Physical Exam Eye Exam: PERRL/EOMI, eyes nml inspection Ears, Nose, Throat Exam: hearing grossly normal, normal ENT inspection Neck Exam: normal inspection, non-tender, supple, full range of motion Respiratory Exam: normal breath sounds, chest tenderness, lungs clear, respiratory distress (mild), airway intact Cardiovascular/Chest Exam: normal heart sounds, regular rate/rhythm, normal peripheral pulses Abdominal/Gastrointestinal Exam: soft, normal bowel sounds, No tenderness Rectal Exam: not done Extremity Exam: non-tender, normal range of motion, normal inspection Neurologic Exam: alert, oriented x 3, cooperative, supervisor adult education II-XII nml as tested, normal mood/affect, nml cerebellar function, nml station & gait, sensation nml Skin Exam: normal color, warm, dry Lymphatic Exam: No adenopathy SpO2 Interpretation: hypoxic, ABG ordered, O2 applied SpO2: 88 O2 Delivery: Nasal Cannula (6 liters) - Course Nursing assessment & vital signs reviewed: Yes EKG Interpreted by Me: RATE (64), Sinus Rhythm, NORMAL AXIS, NORMAL INTERVALS, NORMAL QRS, Other (Comparison EKG dated 01/02/[address] abnormalities. The patient has persistent sinus rhythm. On today's EKG there is no evidence of any acute ischemic changes.) Ordered Tests: Active Orders 24 hr Category Date Time Status Diving Fisher STAT Care 04/20/20 11:37 Active EKG-ER Only STAT Care 04/20/20 11:37 Active IV Insertion STAT Care 04/20/20 11:37 Active Oxygen-ED Only Nasal Cannula 6 lpm Care 04/20/20 11:37 Active Pulse Oximetry (ED) STAT Care 04/20/20 11:37 Active CHEST 1 VIEW (PORTABLE) Stat Exams 04/20/20 11:46 Completed ARTERIAL BLOOD GASES Urgent Lab 04/20/20 11:46 Completed BLOOD CULTURE Stat Lab 04/20/20 12:25 Received CBC W DIFF Stat Lab 04/20/20 11:40 Completed CMP Stat Lab 04/20/20 11:40 Completed Lactic Acid Stat Lab 04/20/20 11:46 Completed Manual Differential NC Stat Lab 04/20/20 11:40 Completed NT PRO BNP Stat Lab 04/20/20 11:40 Completed TROPONIN Q3H Lab 04/20/20 11:40 Completed TROPONIN Q3H Lab 04/20/20 15:00 Ordered TROPONIN Q3H Lab 04/20/20 18:00 Ordered TROPONIN Q3H Lab 04/20/20 21:00 Ordered TROPONIN Q3H Lab 04/21/20 00:00 Ordered Transfer Order Routine Transfer 04/20/20 Ordered Medication Summary Discontinued Medications Generic Name Dose Route Start Last Admin Trade Name Freq PRN Reason Stop Dose Admin Ceftriaxone Sodium/Dextrose 1 g in 50 mls @ 100 mls/hr 04/20/20 12:22 04/20/20 12:58 Rocephin 1 Gm-D5w 50 Ml Bag IV 04/20/20 12:51 Infused STAT STA Infusion Ceftriaxone Sodium/Dextrose Confirm 04/20/20 12:26 Rocephin 1 Gm-D5w 50 Ml Bag Administered 04/20/20 12:27 Dose 1 g in 50 mls @ ud IV .STK-MED ONE Methylprednisolone Sodium Succinate 125 mg 04/20/20 11:47 04/20/20 11:55 Solu-Medrol 125 Mg IV 04/20/20 11:48 125 mg STAT ONE Administration Methylprednisolone Sodium Succinate Confirm 04/20/20 11:52 Solu-Medrol 125 Mg Administered 04/20/20 11:53 Dose 125 mg .ROUTE .STK-MED ONE Lab/Rad Data: Laboratory Result Diagrams 04/20/20 11:40 04/20/20 11:40 Laboratory Results 04/20/20 04/20/20 04/20/20 Range/Units 12:14 12:10 11:46 WBC (4.0-10.5) K/mm3 RBC (4.1-5.6) M/mm3 Hgb (12.5-18.0) gm/dl Hct (42-50) % MCV (78-100) fl MCH (26-32) pg MCHC (32-36) g/dl RDW (11.5-14.0) % Plt Count (150-450) K/mm3 MPV (7.5-11.0) fl Puncture Site RIGHT RADIAL pCO2 39 (35-45) mmHg pO2 70 L (75-100) mmHg Base Excess 3.0 H (-2.0-2.0) O2 Saturation 93.3 L (94-100) g/dF ABG pH 7.45 (7.35-7.45) ABG HCO3 27.1 (22-28) ABG O2 Sat (Measured) 95.2 (95-100) % Delroy Test YES A-a Gradient 195 a/A Ratio 0.26 Hemoglobin 14.8 Carboxyhemoglobin 1.1 (0.0-6.9) % THgb Methemoglobin 0.9 L (1.4-1.5) % Temperature 37.0 C POC O2 Flow Rate 44 % Sodium (137-145) mmol/L Potassium 4.3 (3.5-5.1) mmol/L Chloride (98-107) mmol/L Carbon Dioxide (22-30) mmol/L Anion Gap (5-15) MEQ/L BUN (9-20) mg/dL Creatinine (0.66-1.25) mg/dL Estimated GFR ML/MIN Glucose (74-106) mg/dL Lactic Acid (0.4-2.0) Calcium (8.4-10.2) mg/dL Total Bilirubin (0.2-1.3) mg/dL AST (17-59) U/L ALT (0-50) U/L Alkaline Phosphatase (38-126) U/L Troponin I (0.000-0.034) ng/mL NT-Pro-B Natriuret Pep (0-900) pg/mL Serum Total Protein (6.3-8.2) g/dL Albumin (3.5-5.0) g/dL Influenza Type A Ag NEGATIVE (NEGATIVE) Influenza Type B Ag NEGATIVE (NEGATIVE) RSV (PCR) NEGATIVE (Negative) SARS-CoV-2 (PCR) NEGATIVE (NEGATIVE) 04/20/20 04/20/20 04/20/20 Range/Units 11:46 11:40 11:40 WBC (4.0-10.5) K/mm3 RBC (4.1-5.6) M/mm3 Hgb (12.5-18.0) gm/dl Hct (42-50) % MCV (78-100) fl MCH (26-32) pg MCHC (32-36) g/dl RDW (11.5-14.0) % Plt Count (150-450) K/mm3 MPV (7.5-11.0) fl Puncture Site pCO2 (35-45) mmHg pO2 (75-100) mmHg Base Excess (-2.0-2.0) O2 Saturation (94-100) g/dF ABG pH (7.35-7.45) ABG HCO3 (22-28) ABG O2 Sat (Measured) (95-100) % Delroy Test A-a Gradient a/A Ratio Hemoglobin Carboxyhemoglobin (0.0-6.9) % THgb Methemoglobin (1.4-1.5) % Temperature C POC O2 Flow Rate % Sodium 138 (137-145) mmol/L Potassium 4.7 (3.5-5.1) mmol/L Chloride 102 (98-107) mmol/L Carbon Dioxide 24 (22-30) mmol/L Anion Gap 16.3 H (5-15) MEQ/L BUN 24 H (9-20) mg/dL Creatinine 0.83 (0.66-1.25) mg/dL Estimated GFR > 60.0 ML/MIN Glucose 120 H (74-106) mg/dL Lactic Acid 1.8 (0.4-2.0) Calcium 8.9 (8.4-10.2) mg/dL Total Bilirubin 0.90 (0.2-1.3) mg/dL AST 134 H (17-59) U/L ALT 115 H (0-50) U/L Alkaline Phosphatase 235 H (38-126) U/L Troponin I < 0.012 (0.000-0.034) ng/mL NT-Pro-B Natriuret Pep 132 (0-900) pg/mL Serum Total Protein 7.5 (6.3-8.2) g/dL Albumin 4.0 (3.5-5.0) g/dL Influenza Type A Ag (NEGATIVE) Influenza Type B Ag (NEGATIVE) RSV (PCR) (Negative) SARS-CoV-2 (PCR) (NEGATIVE) 04/20/20 Range/Units 11:40 WBC 13.1 H (4.0-10.5) K/mm3 RBC 4.75 (4.1-5.6) M/mm3 Hgb 15.0 (12.5-18.0) gm/dl Hct 45.5 (42-50) % MCV 95.8 (78-100) fl MCH 31.6 (26-32) pg MCHC 33.0 (32-36) g/dl RDW 13.5 (11.5-14.0) % Plt Count 187 (150-450) K/mm3 MPV 10.3 (7.5-11.0) fl Puncture Site pCO2 (35-45) mmHg pO2 (75-100) mmHg Base Excess (-2.0-2.0) O2 Saturation (94-100) g/dF ABG pH (7.35-7.45) ABG HCO3 (22-28) ABG O2 Sat (Measured) (95-100) % Delroy Test A-a Gradient a/A Ratio Hemoglobin Carboxyhemoglobin (0.0-6.9) % THgb Methemoglobin (1.4-1.5) % Temperature C POC O2 Flow Rate % Sodium (137-145) mmol/L Potassium (3.5-5.1) mmol/L Chloride (98-107) mmol/L Carbon Dioxide (22-30) mmol/L Anion Gap (5-15) MEQ/L BUN (9-20) mg/dL Creatinine (0.66-1.25) mg/dL Estimated GFR ML/MIN Glucose (74-106) mg/dL Lactic Acid (0.4-2.0) Calcium (8.4-10.2) mg/dL Total Bilirubin (0.2-1.3) mg/dL AST (17-59) U/L ALT (0-50) U/L Alkaline Phosphatase (38-126) U/L Troponin I (0.000-0.034) ng/mL NT-Pro-B Natriuret Pep (0-900) pg/mL Serum Total Protein (6.3-8.2) g/dL Albumin (3.5-5.0) g/dL Influenza Type A Ag (NEGATIVE) Influenza Type B Ag (NEGATIVE) RSV (PCR) (Negative) SARS-CoV-2 (PCR) (NEGATIVE) - Progress Progress: re-examined Air Movement: good Progress Note: 04/20/20 12:21 Chest x-ray reveals cardiomegaly. There is new mild diffuse pulmonary edema with tiny bibasilar pleural effusions. There is a new right upper lobe patchy airspace opacity consistent with pneumonia 04/20/20 13:52 Medical decision making: This patient presents with shortness of air and hypoxia . Work-up reveals a right-sided pneumonia. I spoke with Dr. Robles. She accepts the patient for admission. I reviewed the patient history, physical findings, condition, laboratory, EKG and x-ray results with her. Patient states that he had a CAT scan of the chest within the last [address] Robles states she would like that report on the chart. Dr. Robles wants to continue the Rocephin for now and repeat laboratory data in the morning. The patient was offered admission into the hospital or transfer to [facility] where his sales porter and workers compensation claims specialist are. Patient refuses transfer and wants to be admitted here in this hospital. [facility]'s COVID-19 test is negative. Blood Culture(s) Obtained: Yes Antibiotics given: No Discussed with : Daryl Counseled pt/family regarding: lab results, diagnosis, rad results - Departure Departure Disposition: In-patient Admission Clinical Impression: Hypoxia, Pneumonia, Leukocytosis Condition: Fair Critical Care Time: Yes Critical Care Time(excluding separately billable procedures): Critical 30-74 mins Referrals: RADHA ANN MD [Primary Care Provider] -
--- NOTE | 2020-04-20 12:11 | XRAY ---
Indication: Short of breath and right chest pain. Comparison: January 02, 2019. Portable chest again demonstrates cardiomegaly with CABG. New mild diffuse pulmonary edema with tiny bibasilar effusions favoring CHF. Also new right upper lobe patchy airspace opacity possibly superimposed pneumonia. Bony thorax intact.
[2020-04-20] MEDS ORDERED: ROCEPHIN 1 Gm-D5w 50 ml Bag** 1 G/50 ML IVPB IV STA (12:22)
[2020-04-20] MEDS ORDERED: ROCEPHIN 1 Gm-D5w 50 ml Bag** 1 G/50 ML IVPB IV ONE (12:26)
[2020-04-20 12:36] LABS: Hematocrit 45.5 % (42-50); Mean Cell Volume 95.8 fl (78-100); Mean Corpuscular Hemoglobin 31.6 pg (26-32); Mean Platelet Volume 10.3 fl (7.5-11.0); Platelet Count 187 K/mm3 (150-450); Red Blood Count 4.75 M/mm3 (4.1-5.6); Red Cell Distribution Width 13.5 % (11.5-14.0); White Blood Count 13.1 K/mm3 (4.0-10.5)
[2020-04-20 13:05] LABS: ALKALINE PHOSPHATASE 235 U/L (38-126); ANION GAP 16.3 MEQ/L (5-15); BLOOD UREA NITROGEN 24 mg/dL (9-20); CHLORIDE 102 mmol/L (98-107); Calcium 8.9 mg/dL (8.4-10.2); Carbon Dioxide 24 mmol/L (22-30); Creatinine 1 0.83 mg/dL (0.66-1.25); Glucose 120 mg/dL (74-106); NT PRO BNP 132 pg/mL (0-900); Potassium 4.7 mmol/L (3.5-5.1); SGOT/AST 134 U/L (17-59); SGPT/ALT 115 U/L (0-50); SODIUM 138 mmol/L (137-145); Total Protein 7.5 g/dL (6.3-8.2)
[2020-04-20 13:08] LABS: INFLUENZA A NEGATIVE (NEGATIVE); INFLUENZA B NEGATIVE (NEGATIVE); RESPIRATORY SYNCTIAL VIRUS NEGATIVE (Negative)
[2020-04-20] MEDS ORDERED: TYLENOL 325 MG PO PRN (14:41)
[2020-04-20] MEDS ORDERED: Zofran 4 MG/2 ML VIAL IV PRN (14:41)
[2020-04-20 15:10] LABS: Eosinophil 3 % (0.00-3.0); Lymphocytes 30 % (24-44); Monocyte 5 % (0.0-12.0); Neutrophils 62 % (36.-66.); Platelet Estimate NORMAL (NORMAL); Total Cells Counted 100
[2020-04-20] MEDS: Norco 10/325 MG Tablet PO PRN (16:27)
[2020-04-20] MEDS: HUMULIN R SQ PRN ×2 (16:28→21:38)
[2020-04-20] MEDS: DUONEB 0.5-3 MG/3 ml Neb IH SCH (18:58)
[2020-04-20] MEDS: Advair Hfa 230/21 Mcg COMMON CANISTER IH SCH (18:59)
[2020-04-20] MEDS ORDERED: Levofloxacin 500 MG Tablet ONE (21:12)
[2020-04-20] MEDS ORDERED: ZOCOR 20MG ONE (21:12)
[2020-04-20] MEDS: Coreg 3.125 MG PO SCH (21:26)
[2020-04-20] MEDS: solu-MEDROL 40 MG IV SCH (21:26)
[2020-04-20] MEDS: ZOCOR 20MG PO SCH (21:26)
[2020-04-20] MEDS ORDERED: Levofloxacin 250MG Tablet PO SCH (22:00)
[2020-04-21] MEDS: DUONEB 0.5-3 MG/3 ml Neb IH SCH ×4 (00:49→19:07)
[2020-04-21 04:51] LABS: Hematocrit 42.8 % (42-50); Hemoglobin 13.8 gm/dl (12.5-18.0); Mean Cell Volume 95.5 fl (78-100); Mean Corpuscular Hemoglobin 30.8 pg (26-32); Mean Corpuscular Hgb Concent. 32.2 g/dl (32-36); Mean Platelet Volume 9.9 fl (7.5-11.0); Platelet Count 143 K/mm3 (150-450); Red Blood Count 4.48 M/mm3 (4.1-5.6); Red Cell Distribution Width 13.1 % (11.5-14.0); White Blood Count 10.8 K/mm3 (4.0-10.5)
[2020-04-21 05:16] LABS: ALBUMIN 3.8 g/dL (3.5-5.0); ALKALINE PHOSPHATASE 217 U/L (38-126); ANION GAP 12.4 MEQ/L (5-15); BLOOD UREA NITROGEN 20 mg/dL (9-20); CHLORIDE 102 mmol/L (98-107); Calcium 9.1 mg/dL (8.4-10.2); Carbon Dioxide 28 mmol/L (22-30); Creatinine 1 0.68 mg/dL (0.66-1.25); Glucose 149 mg/dL (74-106); SGOT/AST 118 U/L (17-59); SGPT/ALT 114 U/L (0-50); SODIUM 138 mmol/L (137-145)
[2020-04-21] MEDS: Advair Hfa 230/21 Mcg COMMON CANISTER IH SCH ×2 (06:36→19:07)
[2020-04-21] MEDS: HUMULIN R SQ PRN ×4 (07:41→22:12)
[2020-04-21] MEDS: solu-MEDROL 40 MG IV SCH ×2 (07:41→14:00)
--- NOTE | 2020-04-21 08:24 | CONS ---
CONSULT DATE: 04/20/2020 HISTORY: Abhinav De La Cruz is a 59 year old male apparently diagnosed by me a few years ago with pulmonary fibrosis but not followed by me, who was diagnosed of having lung cancer in the right lung earlier this year. The patient is followed by Dr. Mello Castillo. He apparently underwent CT guided biopsy followed by radiation therapy at [facility]. The patient has been hospitalized with progressive shortness of breath. He is on home oxygen at 4 liters/minute but for the past few weeks has required incremental increase in the same. He has a nonproductive cough. The patient's COVID test has been negative. His chest x-ray and recent CT scan two weeks ago both have shown pulmonary fibrosis potentially (?) being made worse by radiation therapy. At the time of my evaluation the patient appears fairly comfortable. He is able to talk. He reports progressive shortness of breath. His effort tolerance has significantly declined over the past few months. Unfortunately he has continued to smoke until this hospitalization. PAST MEDICAL HISTORY: Positive for chronic obstructive pulmonary disease, pulmonary fibrosis likely usual interstitial pneumonia (UIP). History of hypertension, coronary artery disease, gastroesophageal reflux, diabetes and obesity. PAST SURGICAL HISTORY: As above. 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 MEDICATIONS: Home and current medications are reviewed. ALLERGIES: NKDA. PHYSICAL EXAMINATION: This is a middle-aged male who appears comfortable but mildly tachypneic at rest. Vital signs noted. Oxygen via nasal cannula currently at 4 liters. HEENT: Normocephalic. Oral exam partially edentulous. NECK: Short. CVS: First and second heart sounds are normal, regular, rhythmic. RESPIRATORY: Shows diminished breath sounds, basilar crackles are heard typical of pulmonary fibrosis. ABDOMEN: Obese. EXTREMITIES: Clubbing is noted. No significant edema is seen. LABORATORY DATA AND TESTS: Troponin I has been negative. White count 13.1, hemoglobin 15, hematocrit 40. Lipase 187. Influenza A, B and RSV have been negative. Sodium 130, potassium 4.7, chloride 102, bicarb 24, glucose 120, BUN 24, creatinine 0.8, lactic acid 1.8. ABG on 44% FIO2 showing pH of 7.45, pCO2 39, pO2 of 70. A recent CT chest from 04/14/2020 showed more pulmonary fibrosis and atelectasis involving right upper lobe than previous CT since September, small right pleural effusion, increased interstitial markings in the right lower lobe also suggestive of progressive fibrosis without any hilar adenopathy. ASSESSMENT: This is a 59 year old male admitted with: 1) Acute on chronic hypoxic respiratory failure. 2) Progressive pulmonary fibrosis potentially made worse by radiation therapy. 3) History of lung cancer, details currently unavailable, status post radiation. 4) Underlying chronic obstructive pulmonary disease. 5) Nicotine addiction. 6) Hyperglycemia secondary to steroid therapy. 7) History of hypertension. RECOMMENDATIONS: 1) I discussed with the patient pathology of pulmonary fibrosis. 2) I agree with present therapy. 3) I will attempt to correct correctable factors with IV steroids and antibiotics. 4) He does not clinically appear to be volume overloaded. 5) Continue bronchodilators. 6) Need for complete smoking cessation was stressed. 7) May require high flow oxygen upon discharge given possible significant desaturation with minimal activity. 8) Deep venous thrombosis and GI prophylaxis. 9) Unfortunately prognosis appears guarded to poor particularly with pulmonary fibrosis in itself not to mention addition of chronic obstructive pulmonary disease and lung cancer treatment. I discussed this plan with the patient. Thank you for allowing me to participate in the care of Abhinav De La Cruz.
[2020-04-21] MEDS: Norco 10/325 MG Tablet PO PRN ×3 (08:48→21:39)
[2020-04-21] MEDS: ECOTRIN 81 MG PO SCH (09:19)
[2020-04-21] MEDS: Prozac 20 MG PO SCH (09:19)
[2020-04-21] MEDS: Cozaar 50 MG PO SCH (09:19)
[2020-04-21] MEDS: Coreg 3.125 MG PO SCH ×2 (09:19→21:39)
[2020-04-21] MEDS: Imdur 30 MG PO SCH (09:20)
--- NOTE | 2020-04-21 09:20 | PCM.HP ---
History of Present Illness - Chief Complaint Chief Complaint: pneumonia History of Present Illness: is a 59 year old male pt of Dr. Muñoz with hx lung cancer, RLL (Jul 2019, radiated) who was admitted through ER with SOB x 3 weeks. No fever. Some cough with hemoptysis. He was swimming one day, then got up in the night (3 wks ago) to go to the bathroom and couldn't get back to bed due to his shortness of breath. He has apparently had a CT chest in the past 2 weeks at another facility. In ER he was started on IV rocephin. Dr. Carmen was consulted for pt's cup machine operator, Dr. Guerrier, and started pt on po levaquin and IV solumedrol, to transition to po prednisone after 3d. - Review of Systems Eyes: Other ("I'm basically blind") Respiratory: Cough, Short Of Breath, Other (hemoptysis) Cardiac: Chest Pain (RUL) Musculoskeletal: Arthralgias (on R side recently, resolved) All Other Systems: Reviewed and Negative Medications & Allergies Home Medications: Home Medication List Albuterol Sulfate [Proair Hfa] 2 puff IH Q4H 01/01/19 [History Confirmed 04/20/20] Albuterol/Ipratropium 3ml Neb* [DUONEB 0.5-3 MG/3 ml Neb] 1 puff IH Q4H PRN PRN 01/01/19 [History Confirmed 04/20/20] Aspirin 81 gm Chew [Baby Aspirin 81 mg Chew] 81 mg PO DAILY 01/01/19 [History Confirmed 04/20/20] Atorvastatin Calcium [Lipitor] 80 mg PO DAILY 01/01/19 [History Confirmed 04/20/20] Carvedilol 3.125 mg [Coreg 3.125 MG] 3.125 mg PO BID 01/01/19 [History Confirmed 04/20/20] Isosorbide Mononitrate 30 mg [Imdur 30 MG] 30 mg PO DAILY 01/01/19 [History Confirmed 04/20/20] Losartan Potassium 25 mg PO DAILY 01/01/19 [History Confirmed 04/20/20] Omeprazole 20 mg PO DAILY 01/01/19 [History Confirmed 04/20/20] Glycopyrrolate/Formoterol Fum [Bevespi Aerosphere Inhaler] 2 puff PO DAILY 01/02/19 [History Confirmed 04/20/20] Budesonide/Formoterol Fumarate [Symbicort 160-4.5 Mcg Inhaler] 1 inh PO DAILY 04/20/20 [History Confirmed 04/20/20] Fluoxetine HCl [Prozac] 40 mg PO DAILY 04/20/20 [History Confirmed 04/20/20] Hydrocodone Bit/Acetaminophen [Hydrocodon-Acetaminophn 10-325] 1 each PO QID PRN 04/20/20 [History Confirmed 04/20/20] Metformin HCl Xr 500 mg [Glucophage XR 500 MG] 500 mg PO DAILY 04/20/20 [History Confirmed 04/20/20] Allergies/Adverse Reactions: Allergies Allergy/AdvReac Type Severity Reaction Status Date / Time No Known Drug Allergies Allergy Verified 04/20/20 11:42 - Past Medical History Past Medical History: Yes Neurological History: No Pertinent History ENT History: Other Cardiac History: Coronary Artery Disease, High Cholesterol, Hypertension, Myocardial Infarction ([place]) Respiratory History: COPD, Emphysema, Lung Cancer, Pneumonia Endocrine Medical History: No Pertinent History, Diabetes Type II Musculoskelatal History: No Pertinent History GI Medical History: No Pertinent History History: No Pertinent History Pyscho-Social History: Depression Male Reproductive Disorders: No Pertinent History Comment: [place] 2009. - Past Surgical History Past Surgical History: Yes Neuro Surgical History: No Pertinent History Cardiac History: CABG, Cardiac Catheterization Respiratory Surgery: No Pertinent History GI Surgical History: Appendectomy Genitourinary Surgical Hx: No Pertinent History Musculskeletal Surgical Hx: Orthopedic Surgery Male Surgical History: No Pertinent History Other Surgical History: BROKEN JAW 30 YEARS AGO, LASER SURGERY BOTH EYES. RETNA PULLED AWAY, BLEEDING BEHIND THE EYE. - Social History Smoking Status: Current some day smoker How long have you smoked: 1 YEAR Exposure to second hand smoke: No Alcohol: None Drug Use: none - Physical Exam Vital Signs: Vital Signs - 24 hr Temp Pulse Resp BP Pulse Ox 04/21/20 07:59 96.1 F 58 L 22 146/77 90 L 04/21/20 06:46 58 L 22 90 L 04/21/20 04:00 51 L 24 158/78 94 L 04/21/20 01:03 65 20 69 L 04/21/20 00:00 96.3 F 64 24 140/68 94 L 04/20/20 19:39 98.1 F 63 21 138/72 91 L 04/20/20 19:03 62 18 90 L 04/20/20 16:39 92 L 04/20/20 15:19 58 L 20 91 L 04/20/20 14:48 98.1 F 66 28 H 141/80 92 L 04/20/20 14:45 98.1 F 66 28 H 141/80 92 L 04/20/20 14:39 98.1 F 66 28 H 141/80 92 L 04/20/20 14:09 88 L 04/20/20 14:00 62 22 121/71 93 L 04/20/20 13:25 64 26 H 123/65 92 L 04/20/20 12:35 68 32 H 125/69 96 04/20/20 11:59 72 36 H 117/69 95 04/20/20 11:38 88 L 04/20/20 11:28 71 17 146/83 93 L General Appearance: no apparent distress, alert Neurologic Exam: oriented x 3, cooperative Eye Exam: eyes nml inspection Ears, Nose, Throat Exam: moist mucous membranes Neck Exam: normal inspection Respiratory Exam: diminished breath sounds (poor air exchange), other (tachypneic at rest), No crackles/rales, No rhonchi, No wheezing Cardiovascular Exam: regular rate/rhythm, normal heart sounds, No murmur Gastrointestinal/Abdomen Exam: soft, normal bowel sounds, No tenderness Back Exam: normal inspection, No rash Extremity Exam: other (clubbing), No pedal edema, No swelling Skin Exam: normal color, warm, dry, No rash Results - Labs Lab/Micro Results: Accuchecks Date 04/20/20 Date 04/20/20 Date 04/20/20 Time 07:30 Time 21:42 Time 04:30 Accucheck Value: 193 Accucheck Value: 312 Accucheck Value: 225 Lab Results-Last 24 Hours 04/20/20 04/20/20 04/20/20 Range/Units 11:40 11:40 11:40 WBC 13.1 H (4.0-10.5) K/mm3 RBC 4.75 (4.1-5.6) M/mm3 Hgb 15.0 (12.5-18.0) gm/dl Hct 45.5 (42-50) % MCV 95.8 (78-100) fl MCH 31.6 (26-32) pg MCHC 33.0 (32-36) g/dl RDW 13.5 (11.5-14.0) % Plt Count 187 (150-450) K/mm3 MPV 10.3 (7.5-11.0) fl Segmented Neutrophils 62 (36.-66.) % Lymphocytes (Manual) 30 (24-44) % Monocytes (Manual) 5 (0.0-12.0) % Eosinophils (Manual) 3 (0.00-3.0) % Platelet Estimate NORMAL (NORMAL) RBC Morphology NORMAL Puncture Site pCO2 (35-45) mmHg pO2 (75-100) mmHg Base Excess (-2.0-2.0) O2 Saturation (94-100) g/dF ABG pH (7.35-7.45) ABG HCO3 (22-28) ABG O2 Sat (Measured) (95-100) % Delroy Test A-a Gradient a/A Ratio Hemoglobin Carboxyhemoglobin (0.0-6.9) % THgb Methemoglobin (1.4-1.5) % Temperature C POC O2 Flow Rate % Sodium 138 (137-145) mmol/L Potassium 4.7 (3.5-5.1) mmol/L Chloride 102 (98-107) mmol/L Carbon Dioxide 24 (22-30) mmol/L Anion Gap 16.3 H (5-15) MEQ/L BUN 24 H (9-20) mg/dL Creatinine 0.83 (0.66-1.25) mg/dL Estimated GFR > 60.0 ML/MIN Glucose 120 H (74-106) mg/dL Hemoglobin A1c (4.5-6.0) % Lactic Acid (0.4-2.0) Calcium 8.9 (8.4-10.2) mg/dL Total Bilirubin 0.90 (0.2-1.3) mg/dL AST 134 H (17-59) U/L ALT 115 H (0-50) U/L Alkaline Phosphatase 235 H (38-126) U/L Troponin I < 0.012 (0.000-0.034) ng/mL NT-Pro-B Natriuret Pep 132 (0-900) pg/mL Serum Total Protein 7.5 (6.3-8.2) g/dL Albumin 4.0 (3.5-5.0) g/dL Influenza Type A Ag (NEGATIVE) Influenza Type B Ag (NEGATIVE) RSV (PCR) (Negative) SARS-CoV-2 (PCR) (NEGATIVE) 04/20/20 04/20/20 04/20/20 Range/Units 11:46 11:46 12:10 WBC (4.0-10.5) K/mm3 RBC (4.1-5.6) M/mm3 Hgb (12.5-18.0) gm/dl Hct (42-50) % MCV (78-100) fl MCH (26-32) pg MCHC (32-36) g/dl RDW (11.5-14.0) % Plt Count (150-450) K/mm3 MPV (7.5-11.0) fl Segmented Neutrophils (36.-66.) % Lymphocytes (Manual) (24-44) % Monocytes (Manual) (0.0-12.0) % Eosinophils (Manual) (0.00-3.0) % Platelet Estimate (NORMAL) RBC Morphology Puncture Site RIGHT RADIAL pCO2 39 (35-45) mmHg pO2 70 L (75-100) mmHg Base Excess 3.0 H (-2.0-2.0) O2 Saturation 93.3 L (94-100) g/dF ABG pH 7.45 (7.35-7.45) ABG HCO3 27.1 (22-28) ABG O2 Sat (Measured) 95.2 (95-100) % Delroy Test YES A-a Gradient 195 a/A Ratio 0.26 Hemoglobin 14.8 Carboxyhemoglobin 1.1 (0.0-6.9) % THgb Methemoglobin 0.9 L (1.4-1.5) % Temperature 37.0 C POC O2 Flow Rate 44 % Sodium (137-145) mmol/L Potassium 4.3 (3.5-5.1) mmol/L Chloride (98-107) mmol/L Carbon Dioxide (22-30) mmol/L Anion Gap (5-15) MEQ/L BUN (9-20) mg/dL Creatinine (0.66-1.25) mg/dL Estimated GFR ML/MIN Glucose (74-106) mg/dL Hemoglobin A1c (4.5-6.0) % Lactic Acid 1.8 (0.4-2.0) Calcium (8.4-10.2) mg/dL Total Bilirubin (0.2-1.3) mg/dL AST (17-59) U/L ALT (0-50) U/L Alkaline Phosphatase (38-126) U/L Troponin I (0.000-0.034) ng/mL NT-Pro-B Natriuret Pep (0-900) pg/mL Serum Total Protein (6.3-8.2) g/dL Albumin (3.5-5.0) g/dL Influenza Type A Ag NEGATIVE (NEGATIVE) Influenza Type B Ag NEGATIVE (NEGATIVE) RSV (PCR) NEGATIVE (Negative) SARS-CoV-2 (PCR) (NEGATIVE) 04/20/20 04/20/20 04/20/20 Range/Units 12:14 14:00 15:24 WBC (4.0-10.5) K/mm3 RBC (4.1-5.6) M/mm3 Hgb (12.5-18.0) gm/dl Hct (42-50) % MCV (78-100) fl MCH (26-32) pg MCHC (32-36) g/dl RDW (11.5-14.0) % Plt Count (150-450) K/mm3 MPV (7.5-11.0) fl Segmented Neutrophils (36.-66.) % Lymphocytes (Manual) (24-44) % Monocytes (Manual) (0.0-12.0) % Eosinophils (Manual) (0.00-3.0) % Platelet Estimate (NORMAL) RBC Morphology Puncture Site pCO2 (35-45) mmHg pO2 (75-100) mmHg Base Excess (-2.0-2.0) O2 Saturation (94-100) g/dF ABG pH (7.35-7.45) ABG HCO3 (22-28) ABG O2 Sat (Measured) (95-100) % Delroy Test A-a Gradient a/A Ratio Hemoglobin Carboxyhemoglobin (0.0-6.9) % THgb Methemoglobin (1.4-1.5) % Temperature C POC O2 Flow Rate % Sodium (137-145) mmol/L Potassium (3.5-5.1) mmol/L Chloride (98-107) mmol/L Carbon Dioxide (22-30) mmol/L Anion Gap (5-15) MEQ/L BUN (9-20) mg/dL Creatinine (0.66-1.25) mg/dL Estimated GFR ML/MIN Glucose (74-106) mg/dL Hemoglobin A1c 6.41 H (4.5-6.0) % Lactic Acid (0.4-2.0) Calcium (8.4-10.2) mg/dL Total Bilirubin (0.2-1.3) mg/dL AST (17-59) U/L ALT (0-50) U/L Alkaline Phosphatase (38-126) U/L Troponin I < 0.012 (0.000-0.034) ng/mL NT-Pro-B Natriuret Pep (0-900) pg/mL Serum Total Protein (6.3-8.2) g/dL Albumin (3.5-5.0) g/dL Influenza Type A Ag (NEGATIVE) Influenza Type B Ag (NEGATIVE) RSV (PCR) (Negative) SARS-CoV-2 (PCR) NEGATIVE (NEGATIVE) 04/20/20 04/20/20 04/21/20 Range/Units 18:04 21:00 00:29 WBC (4.0-10.5) K/mm3 RBC (4.1-5.6) M/mm3 Hgb (12.5-18.0) gm/dl Hct (42-50) % MCV (78-100) fl MCH (26-32) pg MCHC (32-36) g/dl RDW (11.5-14.0) % Plt Count (150-450) K/mm3 MPV (7.5-11.0) fl Segmented Neutrophils (36.-66.) % Lymphocytes (Manual) (24-44) % Monocytes (Manual) (0.0-12.0) % Eosinophils (Manual) (0.00-3.0) % Platelet Estimate (NORMAL) RBC Morphology Puncture Site pCO2 (35-45) mmHg pO2 (75-100) mmHg Base Excess (-2.0-2.0) O2 Saturation (94-100) g/dF ABG pH (7.35-7.45) ABG HCO3 (22-28) ABG O2 Sat (Measured) (95-100) % Delroy Test A-a Gradient a/A Ratio Hemoglobin Carboxyhemoglobin (0.0-6.9) % THgb Methemoglobin (1.4-1.5) % Temperature C POC O2 Flow Rate % Sodium (137-145) mmol/L Potassium (3.5-5.1) mmol/L Chloride (98-107) mmol/L Carbon Dioxide (22-30) mmol/L Anion Gap (5-15) MEQ/L BUN (9-20) mg/dL Creatinine (0.66-1.25) mg/dL Estimated GFR ML/MIN Glucose (74-106) mg/dL Hemoglobin A1c (4.5-6.0) % Lactic Acid (0.4-2.0) Calcium (8.4-10.2) mg/dL Total Bilirubin (0.2-1.3) mg/dL AST (17-59) U/L ALT (0-50) U/L Alkaline Phosphatase (38-126) U/L Troponin I < 0.012 < 0.012 < 0.012 (0.000-0.034) ng/mL NT-Pro-B Natriuret Pep (0-900) pg/mL Serum Total Protein (6.3-8.2) g/dL Albumin (3.5-5.0) g/dL Influenza Type A Ag (NEGATIVE) Influenza Type B Ag (NEGATIVE) RSV (PCR) (Negative) SARS-CoV-2 (PCR) (NEGATIVE) 04/21/20 04/21/20 Range/Units 04:34 04:34 WBC 10.8 H (4.0-10.5) K/mm3 RBC 4.48 (4.1-5.6) M/mm3 Hgb 13.8 (12.5-18.0) gm/dl Hct 42.8 (42-50) % MCV 95.5 (78-100) fl MCH 30.8 (26-32) pg MCHC 32.2 (32-36) g/dl RDW 13.1 (11.5-14.0) % Plt Count 143 L (150-450) K/mm3 MPV 9.9 (7.5-11.0) fl Segmented Neutrophils (36.-66.) % Lymphocytes (Manual) (24-44) % Monocytes (Manual) (0.0-12.0) % Eosinophils (Manual) (0.00-3.0) % Platelet Estimate (NORMAL) RBC Morphology Puncture Site pCO2 (35-45) mmHg pO2 (75-100) mmHg Base Excess (-2.0-2.0) O2 Saturation (94-100) g/dF ABG pH (7.35-7.45) ABG HCO3 (22-28) ABG O2 Sat (Measured) (95-100) % Delroy Test A-a Gradient a/A Ratio Hemoglobin Carboxyhemoglobin (0.0-6.9) % THgb Methemoglobin (1.4-1.5) % Temperature C POC O2 Flow Rate % Sodium 138 (137-145) mmol/L Potassium 5.0 (3.5-5.1) mmol/L Chloride 102 (98-107) mmol/L Carbon Dioxide 28 (22-30) mmol/L Anion Gap 12.4 (5-15) MEQ/L BUN 20 (9-20) mg/dL Creatinine 0.68 (0.66-1.25) mg/dL Estimated GFR > 60.0 ML/MIN Glucose 149 H (74-106) mg/dL Hemoglobin A1c (4.5-6.0) % Lactic Acid (0.4-2.0) Calcium 9.1 (8.4-10.2) mg/dL Total Bilirubin 0.50 (0.2-1.3) mg/dL AST 118 H (17-59) U/L ALT 114 H (0-50) U/L Alkaline Phosphatase 217 H (38-126) U/L Troponin I (0.000-0.034) ng/mL NT-Pro-B Natriuret Pep (0-900) pg/mL Serum Total Protein 7.0 (6.3-8.2) g/dL Albumin 3.8 (3.5-5.0) g/dL Influenza Type A Ag (NEGATIVE) Influenza Type B Ag (NEGATIVE) RSV (PCR) (Negative) SARS-CoV-2 (PCR) (NEGATIVE) Accuchecks Date 04/20/20 Date 04/20/20 Date 04/20/20 Time 07:30 Time 21:42 Time 04:30 Accucheck Value: 193 Accucheck Value: 312 Accucheck Value: 225 - Radiology Impressions Radiology Exams & Impressions: Radiology Procedures Category Date Time Status CHEST 1 VIEW (PORTABLE) Stat Exams 04/20/20 11:46 Completed - Other Procedures and Tests Respiratory Therapy 04/20/20 14:41 Oxygen Nasal Cannula 6 lpm 04/20/20 15:18 BiPap/CPAP ROUTINE Respiratory Therapy Assessment DAILY 04/20/20 18:53 Peak Expiratory Flow Rate ONCE Assessment/Plan (1) SOB (shortness of breath) Current Visit: Yes Status: Acute Assessment & Plan: noticeable even at rest. My concern is for the possibility of PE; however he reports having had a CT scan within the past 2 months. Will get that report, may need to report if not done with contrast or [facility] PE protocol. Not checking d-dimer as I anticipate it would be elevated with his comorbid conditions. Meanwhile, will change his lovenox from 40mg SQ daily to 1mg/kg SQ q12h. Could also be from PNA. Also, his overall air exchange is poor, likely due to hx COPD. Code(s): R06.02 - SHORTNESS OF BREATH (2) Hx of malignant neoplasm of lung Current Visit: Yes Status: Chronic Code(s): Z85.118 - PERSONAL HISTORY OF MALIGNANT NEOPLASM OF [place] AND LUNG (3) Leukocytosis Current Visit: Yes Status: Acute Qualifiers: Leukocytosis type: unspecified Qualified Code(s): D72.829 - Elevated white blood cell count, unspecified Code(s): D72.829 - ELEVATED WHITE BLOOD CELL COUNT, UNSPECIFIED (4) Pneumonia Current Visit: Yes Status: Acute Qualifiers: Pneumonia type: due to unspecified organism Laterality: right Lung location: upper lobe of lung Qualified Code(s): J18.9 - Pneumonia, unspecified organism Assessment & Plan: On po levaquin per Dr. Carmen, thank you. I did stop the rocephin that was begun in the ER. Code(s): J18.9 - PNEUMONIA, UNSPECIFIED ORGANISM (5) CAD (coronary artery disease) Current Visit: No Status: Chronic Qualifiers: Coronary Disease-Associated Artery/Lesion type: [place] artery [place] vs. transplanted heart: [place] heart Associated angina: without angina Qualified Code(s): I25.10 - Atherosclerotic heart disease of [place] coronary artery without angina pectoris Code(s): I25.10 - ATHSCL HEART DISEASE OF [place] CORONARY ARTERY W/O ANG PCTRS (6) COPD (chronic obstructive pulmonary disease) Current Visit: No Status: Chronic Qualifiers: COPD type: unspecified COPD Qualified Code(s): J44.9 - Chronic obstructive pulmonary disease, unspecified (7) Pulmonary fibrosis Current Visit: No Status: Chronic Assessment & Plan: RLL Code(s): J84.10 - PULMONARY FIBROSIS, UNSPECIFIED
[2020-04-21] MEDS: Protonix 40MG Tablet PO SCH (09:29)
[2020-04-21] MEDS: ENOXAPARIN SODIUM SQ SCH ×2 (09:52→21:38)
[2020-04-21] MEDS ORDERED: ROCEPHIN 1 Gm-D5w 50 ml Bag** 1 G/50 ML IVPB IV SCH (10:00)
[2020-04-21] MEDS ORDERED: Levofloxacin 500 MG Tablet PO SCH (10:00)
[2020-04-21] MEDS ORDERED: NON-FORMULARY ITEM (Losartan Potassium [Losartan Potassium] 25 MG) PO SCH (10:00)
[2020-04-21] MEDS ORDERED: Protonix 40MG Tablet PO SCH (10:00)
[2020-04-21] MEDS ORDERED: Glucophage XR 500 MG PO SCH (10:00)
[2020-04-21] MEDS ORDERED: NON-FORMULARY ITEM (Omeprazole [Omeprazole] 20 MG) PO SCH (10:00)
[2020-04-21] MEDS ORDERED: NON-FORMULARY ITEM (Atorvastatin Calcium [Lipitor] 80 MG) PO SCH (10:00)
[2020-04-21] MEDS ORDERED: NON-FORMULARY ITEM (Fluoxetine Hcl [Prozac] 40 MG) PO SCH (10:00)
[2020-04-21] MEDS ORDERED: ENOXAPARIN SODIUM SQ SCH ×2 (10:00)
[2020-04-21] MEDS ORDERED: BABY ASPIRIN 81 MG CHEW PO SCH (10:00)
[2020-04-21 10:08] LABS: Lymphocytes 9 % (24-44); Monocyte 3 % (0.0-12.0); Neutrophils 88 % (36.-66.); Platelet Estimate NORMAL (NORMAL); Total Cells Counted 100
--- NOTE | 2020-04-21 13:14 | XRAY ---
Indication: Short of breath. History lung cancer and COPD. Multiple contiguous axial images obtained through the chest using 100 cc Isovue 370 contrast and PE protocol. Comparison: December 25, 2013. There is satisfactory opacification of the pulmonary arteries to include the lobar and segmental branches. Again no pulmonary embolus. Heart is not enlarged again with CABG surgery. Again markedly prominent bilateral pericardial fat more than before. Aorta is normal in course and caliber without aneurysm/dissection. New mediastinal/subcarinal lymphadenopathy, largest distal paratracheal measuring at least 3.6 x 5.1 x 4.1 cm. Also new right suprahilar soft tissue mass, probably lymphadenopathy encasing and markedly effacing the right upper lobe pulmonary artery. Stable small right hilar calcified node. Right epicardiac fat demonstrates a few new prominence nodes, largest 1.4 x 2.7 cm. Lungs again demonstrates advanced diffuse pulmonary emphysema, diffuse scattered fibrosis/scarring, and tiny peripheral right lower lobe calcified granuloma. Medial right upper lobe demonstrates new irregular multilobular masslike opacity measuring at least 3.1 x 6.8 x 6.7 cm with mild anterior pleural thickening worrisome for malignancy. Right lung base also demonstrates new smaller irregular multifocal masslike opacities and new small right effusion. Bony thorax intact again with minimal degenerative changes throughout the spine and sternotomy wires. Limited upper abdomen demonstrates new micronodular margins of the liver favoring cirrhosis. No large ascites. Impression: 1. Negative pulmonary embolus. 2. New right upper lobe and right base irregular masslike opacities worrisome for malignancy. 3. New bulky mediastinal/right suprahilar lymphadenopathy and new small right pericardial nodes all probably metastatic. Right suprahilar lymphadenopathy encases and markedly narrows right upper lobe pulmonary artery. 4. New cirrhotic appearing liver without large ascites. 5. Stable advanced pulmonary emphysema with scattered fibrosis/scarring.
[2020-04-22] MEDS: solu-MEDROL 40 MG IV SCH ×2 (03:44→13:45)
[2020-04-22] MEDS: DUONEB 0.5-3 MG/3 ml Neb IH SCH ×4 (05:38→19:41)
[2020-04-22] MEDS: Advair Hfa 230/21 Mcg COMMON CANISTER IH SCH ×2 (07:33→19:41)
--- NOTE | 2020-04-22 08:51 | PCM.NOTE ---
Date and Time: 04/22/20 0847 Subjective Assessment: He is more short of breath today than he was yesterday. On 6L NC. Kalie po. Barely able to walk to the bathroom d/t SOB. States he had been on po antibiotics for the last [address]ated [address]. Morales had told him in the past week that they would have to recheck the CT scan for RUL cancer after his pneumonia resolves. - Review of Systems Constitutional: No Fever Respiratory: Short Of Breath Objective Exam General Appearance: mild distress (quite tachypneic), alert Neurologic Exam: oriented x 3, cooperative Skin Exam: normal color, warm, dry, No rash Respiratory Exam: diminished breath sounds, prolonged expirations, crackles/rales (bilat bases), No rhonchi, No wheezing Cardiovascular Exam: regular rate/rhythm, normal heart sounds, No murmur Gastrointestinal/Abdomen Exam: soft, normal bowel sounds, No tenderness Extremity Exam: normal inspection, No pedal edema, No swelling Back Exam: normal inspection, No rash OBJECTIVE DATA Vital Signs: Vital Signs - 24 hr Temp Pulse Resp BP Pulse Ox 04/22/20 06:56 97.0 F 52 L 16 148/73 96 04/22/20 06:54 64 24 90 L 04/22/20 04:00 97.6 F 52 L 20 138/63 95 04/22/20 00:00 97.8 F 59 L 20 145/66 96 04/21/20 19:47 97 F 62 23 132/71 95 04/21/20 19:19 66 26 H 93 L 04/21/20 15:52 97.9 F 75 17 130/99 89 L 04/21/20 12:59 86 22 90 L 04/21/20 11:53 96.0 F 58 L 20 125/75 91 L 04/21/20 09:35 92 L Pain Assessment - Last Documented Pain Intensity 4 Pain Scale Used 0-10 Pain Scale Intake and Output: Intake & Output 04/19/20 04/20/20 04/21/20 04/22/20 11:59 11:59 11:59 11:59 Intake Total 1110 1880 Output Total 500 500 Balance 610 1380 Weight 108.409 kg 110.2 kg 113.3 kg Lab Results: Accuchecks Date 04/21/20 Date 04/21/20 Date 04/21/20 Time 21:00 Time 16:30 Time 11:30 Accucheck Value: 111 Accucheck Value: 231 Accucheck Value: 197 Accucheck Value: 221 Lab Results-Last 24 Hours 04/21/20 Range/Units 04:34 Segmented Neutrophils 88 H (36.-66.) % Lymphocytes (Manual) 9 L (24-44) % Monocytes (Manual) 3 (0.0-12.0) % Platelet Estimate NORMAL (NORMAL) RBC Morphology NORMAL Radiology Exams: Radiology Procedures Category Date Time Status CHEST 1 VIEW (PORTABLE) Stat Exams 04/20/20 11:46 Completed CHEST WITH CONTRAST [CT] Urgent Exams 04/21/20 09:42 Completed Assessment/Plan (1) Pneumonia Current Visit: Yes Status: Acute Qualifiers: Pneumonia type: due to unspecified organism Laterality: right Lung location: upper lobe of lung Qualified Code(s): J18.9 - Pneumonia, unspecified organism Assessment & Plan: changing po levaquin to IV meropenem. Consider ABG if no improvement in tachypnea today, although I think this has been ongoing for some time; he is fairly comfortable for someone with such shortness of breath. Code(s): J18.9 - PNEUMONIA, UNSPECIFIED ORGANISM (2) SOB (shortness of breath) Current Visit: Yes Status: Acute Code(s): R06.02 - SHORTNESS OF BREATH (3) Hx of malignant neoplasm of lung Current Visit: Yes Status: Chronic Assessment & Plan: possible RUL pna, with lymphadenopathy concerning as well. CT with contrast report was faxed to Dr. Carmen's office yesterday. Code(s): Z85.118 - PERSONAL HISTORY OF MALIGNANT NEOPLASM OF BRONCHUS AND LUNG (4) Leukocytosis Current Visit: Yes Status: Acute Qualifiers: Leukocytosis type: unspecified Qualified Code(s): D72.829 - Elevated white blood cell count, unspecified Code(s): D72.829 - ELEVATED WHITE BLOOD CELL COUNT, UNSPECIFIED (5) CAD (coronary artery disease) Current Visit: No Status: Chronic Qualifiers: Coronary Disease-Associated Artery/Lesion type: [place] artery [place] vs. transplanted heart: [place] heart Associated angina: without angina Qualified Code(s): I25.10 - Atherosclerotic heart disease of [place] coronary artery without angina pectoris Code(s): I25.10 - ATHSCL HEART DISEASE OF [place] CORONARY ARTERY W/O ANG PCTRS (6) COPD (chronic obstructive pulmonary disease) Current Visit: No Status: Chronic Qualifiers: COPD type: unspecified COPD Qualified Code(s): J44.9 - Chronic obstructive pulmonary disease, unspecified (7) Pulmonary fibrosis Current Visit: No Status: Chronic Code(s): J84.10 - PULMONARY FIBROSIS, UNSPECIFIED
[2020-04-22] MEDS: Coreg 3.125 MG PO SCH ×2 (09:40→21:47)
[2020-04-22] MEDS: ECOTRIN 81 MG PO SCH (09:40)
[2020-04-22] MEDS: Imdur 30 MG PO SCH (09:40)
[2020-04-22] MEDS: Cozaar 50 MG PO SCH (09:40)
[2020-04-22] MEDS: Protonix 40MG Tablet PO SCH (09:41)
[2020-04-22] MEDS: Prozac 20 MG PO SCH (09:41)
[2020-04-22] MEDS: Norco 10/325 MG Tablet PO PRN ×3 (09:41→21:49)
[2020-04-22] MEDS: ENOXAPARIN SODIUM SQ SCH ×2 (09:43→21:47)
[2020-04-22] MEDS: Merrem 1 GM 1 G in Sodium Chloride 100ML MINI-BAG PLUS 100 ML IV SCH ×2 (09:43→16:54)
[2020-04-22] MEDS: HUMULIN R SQ PRN ×3 (11:35→21:49)
[2020-04-22] MEDS: ZOCOR 20MG PO SCH (21:47)
[2020-04-22] MEDS: MORPHINE SULFATE 4 MG INJ IV PRN (23:26)
[2020-04-23] MEDS: DUONEB 0.5-3 MG/3 ml Neb IH SCH ×5 (01:46→20:40)
[2020-04-23] MEDS: Merrem 1 GM 1 G in Sodium Chloride 100ML MINI-BAG PLUS 100 ML IV SCH ×3 (01:52→17:08)
[2020-04-23] MEDS: MORPHINE SULFATE 4 MG INJ IV PRN ×4 (06:22→21:08)
[2020-04-23] MEDS: Advair Hfa 230/21 Mcg COMMON CANISTER IH SCH ×2 (06:54→20:40)
[2020-04-23] MEDS: Norco 10/325 MG Tablet PO PRN (08:05)
[2020-04-23] MEDS: Imdur 30 MG PO SCH (09:52)
[2020-04-23] MEDS: Cozaar 50 MG PO SCH (09:52)
[2020-04-23] MEDS: ECOTRIN 81 MG PO SCH (09:52)
[2020-04-23] MEDS: Protonix 40MG Tablet PO SCH (09:52)
[2020-04-23] MEDS: Coreg 3.125 MG PO SCH ×2 (09:52→21:11)
[2020-04-23] MEDS: ENOXAPARIN SODIUM SQ SCH (09:53)
[2020-04-23] MEDS: DELTASONE 20 MG PO SCH (09:53)
[2020-04-23] MEDS: Prozac 20 MG PO SCH (09:53)
[2020-04-23] MEDS ORDERED: MORPHINE SULFATE 10 MG/ML IV ONE (12:25)
--- NOTE | 2020-04-23 12:54 | PCM.NOTE ---
Date and Time: 04/23/20 1249 Subjective Assessment: Pt had a bad night last night due to R chest pain radiating to R arm, and now present in R lower back. Morphine 4mg started without much relief (pain just decreased to 7/10). Pt says yesterday was "a good day" but seems more short of breath today, he thinks maybe due to the pain. Tolerating po. - Review of Systems Constitutional: No Fever Cardiac: Chest Pain Musculoskeletal: Back Pain Objective Exam General Appearance: mild distress (tachypneic), alert Neurologic Exam: oriented x 3, cooperative Skin Exam: normal color, warm, dry, No rash Eye Exam: eyes nml inspection Ears, Nose, Throat Exam: moist mucous membranes Respiratory Exam: diminished breath sounds, wheezing (faint expiratory), No crackles/rales, No rhonchi Cardiovascular Exam: regular rate/rhythm, normal heart sounds, No murmur Gastrointestinal/Abdomen Exam: soft, normal bowel sounds, other (LLQ with purple macular discoloration approx 5x5 cm), No tenderness Extremity Exam: normal inspection, No pedal edema, No swelling Back Exam: normal inspection, No rash OBJECTIVE DATA Vital Signs: Vital Signs - 24 hr Temp Pulse Resp BP Pulse Ox 04/23/20 12:00 97.8 F 95 H 22 119/65 88 L 04/23/20 08:00 97.7 F 72 24 131/66 85 L 04/23/20 06:55 68 24 90 L 04/23/20 04:00 98.0 F 55 L 20 125/68 93 L 04/23/20 01:46 59 L 24 93 L 04/22/20 23:45 96.6 F 65 24 118/59 91 L 04/22/20 19:42 66 28 H 87 L 04/22/20 19:31 97.6 F 65 28 H 112/55 90 L 04/22/20 16:00 97.9 F 78 24 132/62 91 L 04/22/20 13:27 78 24 91 L Oxygen-Last 24 hours Oxygen Flowrate (L/min)-RT 10 Oxygen Flowrate (L/min)-RT 6 Pain Assessment - Last Documented Pain Intensity 7 Pain Scale Used 0-10 Pain Scale Intake and Output: Intake & Output 04/21/20 04/22/20 04/23/20 04/24/20 11:59 11:59 11:59 11:59 Intake Total 1110 2840 2180 360 Output Total 500 500 Balance 610 2340 2180 360 Weight 110.2 kg 113.3 kg 112 kg Lab Results: Accuchecks Date 04/22/20 Time 21:00 Accucheck Value: 146 Accucheck Value: 186 Accucheck Value: 409 Accucheck Value: 221 Multi-Disciplinary Progress Notes: Multi-Disciplinary Progress Notes 04/23/20 08:22 Respiratory Note by Nay Lacy SPO2 85%% ON N/C 6LPM.PLACED ON OXYMIZER 10LPM SPO2 91% Initialized on 04/23/20 08:22 - END OF NOTE Assessment/Plan (1) Pneumonia Current Visit: Yes Status: Acute Qualifiers: Pneumonia type: due to unspecified organism Laterality: right Lung location: upper lobe of lung Qualified Code(s): J18.9 - Pneumonia, unspecified organism Assessment & Plan: On day #2 of meropenem. Code(s): J18.9 - PNEUMONIA, UNSPECIFIED ORGANISM (2) SOB (shortness of breath) Current Visit: Yes Status: Acute Assessment & Plan: Discussed with pt and that if SOB is due to pneumonia, it may improve soon with antibiotics. If it is due to lung ca, there may not be improvement. If not better with pain meds through the day today, would discuss with Dr. Carmen. Code(s): R06.02 - SHORTNESS OF BREATH (3) Chest pain Current Visit: Yes Status: Resolved Qualifiers: Chest pain type: other chest pain Qualified Code(s): R07.89 - Other chest pain; R07.8 - Other chest pain Assessment & Plan: R sided; PE had been ruled out. Almost certainly due to pneumonia/cancer. Will give 10mg IV morphine x 1 now, then percocet 10/325 1 po q4h prn to see if we ca n control the pain. Will add 1 troponin. Code(s): R07.9 - CHEST PAIN, UNSPECIFIED (4) Hx of malignant neoplasm of lung Current Visit: Yes Status: Chronic Code(s): Z85.118 - PERSONAL HISTORY OF MALIGNANT NEOPLASM OF BRONCHUS AND LUNG (5) Leukocytosis Current Visit: Yes Status: Acute Qualifiers: Leukocytosis type: unspecified Qualified Code(s): D72.829 - Elevated white blood cell count, unspecified Assessment & Plan: recheck Code(s): D72.829 - ELEVATED WHITE BLOOD CELL COUNT, UNSPECIFIED (6) CAD (coronary artery disease) Current Visit: No Status: Chronic Qualifiers: Coronary Disease-Associated Artery/Lesion type: [place] artery [place] vs. transplanted heart: [place] heart Associated angina: without angina Qualified Code(s): I25.10 - Atherosclerotic heart disease of [place] coronary artery without angina pectoris Code(s): I25.10 - ATHSCL HEART DISEASE OF [place] CORONARY ARTERY W/O ANG PCTRS (7) COPD (chronic obstructive pulmonary disease) Current Visit: No Status: Chronic Qualifiers: COPD type: unspecified COPD Qualified Code(s): J44.9 - Chronic obstructive pulmonary disease, unspecified (8) Pulmonary fibrosis Current Visit: No Status: Chronic Code(s): J84.10 - PULMONARY FIBROSIS, UNSPECIFIED
[2020-04-23 13:26] LABS: Hematocrit 41.6 % (42-50); Hemoglobin 13.6 gm/dl (12.5-18.0); Mean Corpuscular Hemoglobin 31.7 pg (26-32); Mean Corpuscular Hgb Concent. 32.7 g/dl (32-36); Mean Platelet Volume 9.7 fl (7.5-11.0); Platelet Count 159 K/mm3 (150-450); Red Blood Count 4.29 M/mm3 (4.1-5.6); Red Cell Distribution Width 13.8 % (11.5-14.0); White Blood Count 15.3 K/mm3 (4.0-10.5)
[2020-04-23 13:47] LABS: ALBUMIN 3.5 g/dL (3.5-5.0); ALKALINE PHOSPHATASE 192 U/L (38-126); ANION GAP 9.5 MEQ/L (5-15); BLOOD UREA NITROGEN 22 mg/dL (9-20); CHLORIDE 104 mmol/L (98-107); Calcium 8.1 mg/dL (8.4-10.2); Carbon Dioxide 28 mmol/L (22-30); Creatinine 1 0.79 mg/dL (0.66-1.25); Glucose 149 mg/dL (74-106); Potassium 4.4 mmol/L (3.5-5.1); SGOT/AST 179 U/L (17-59); SGPT/ALT 130 U/L (0-50); SODIUM 136 mmol/L (137-145); Total Protein 6.5 g/dL (6.3-8.2)
[2020-04-23] MEDS: OXYCODONE-ACETAMINOPHEN 10-325 PO PRN ×3 (15:07→23:20)
[2020-04-23 16:26] LABS: BAND 6 % (0.0-2.0); Eosinophil 1 % (0.00-3.0); Lymphocytes 20 % (24-44); Monocyte 7 % (0.0-12.0); Neutrophils 66 % (36.-66.); Platelet Estimate NORMAL (NORMAL); Total Cells Counted 100
[2020-04-23] MEDS: ZOCOR 20MG PO SCH (21:09)
[2020-04-24] MEDS: Merrem 1 GM 1 G in Sodium Chloride 100ML MINI-BAG PLUS 100 ML IV SCH ×3 (02:09→17:22)
[2020-04-24] MEDS: MORPHINE SULFATE 4 MG INJ IV PRN ×5 (02:30→21:48)
[2020-04-24] MEDS: DUONEB 0.5-3 MG/3 ml Neb IH SCH ×6 (03:33→23:27)
[2020-04-24] MEDS: Advair Hfa 230/21 Mcg COMMON CANISTER IH SCH ×2 (08:15→19:51)
[2020-04-24] MEDS: OXYCODONE-ACETAMINOPHEN 10-325 PO PRN ×4 (09:09→23:34)
[2020-04-24] MEDS: ECOTRIN 81 MG PO SCH (09:09)
[2020-04-24] MEDS: Coreg 3.125 MG PO SCH ×2 (09:09→21:48)
[2020-04-24] MEDS: DELTASONE 20 MG PO SCH (09:09)
[2020-04-24] MEDS: ENOXAPARIN SODIUM SQ SCH (09:09)
[2020-04-24] MEDS: Protonix 40MG Tablet PO SCH (09:09)
[2020-04-24] MEDS: Imdur 30 MG PO SCH (09:09)
[2020-04-24] MEDS: Prozac 20 MG PO SCH (09:09)
[2020-04-24] MEDS: Cozaar 50 MG PO SCH (09:10)
[2020-04-24] MEDS ORDERED: ENOXAPARIN SODIUM SQ SCH (10:00)
[2020-04-24] MEDS: HUMULIN R SQ PRN ×3 (11:39→21:48)
--- NOTE | 2020-04-24 12:37 | PCM.NOTE ---
Date and Time: 04/24/20 1229 Subjective Assessment: Pt thania po well. His polo is much better today; in fact at 0400 it was completely gone, but has waxed and waned. His SOB seems better to him; however now he is on hi-flow O2 at 35L. O2 sat were 75 this morning on 10L oximizer. He is less SOB on the high flow. - Review of Systems Constitutional: No Fever Respiratory: Short Of Breath Objective Exam General Appearance: mild distress (short of breath ;however comfortable and eating lunch), obese Neurologic Exam: alert, cooperative Skin Exam: normal color, warm, dry, No rash Eye Exam: eyes nml inspection Ears, Nose, Throat Exam: moist mucous membranes Neck Exam: normal inspection Respiratory Exam: diminished breath sounds (poor to fair air exchange), No crackles/rales, No rhonchi, No wheezing Cardiovascular Exam: regular rate/rhythm, normal heart sounds, No murmur Extremity Exam: No pedal edema, No swelling Back Exam: normal inspection, No rash OBJECTIVE DATA Vital Signs: Vital Signs - 24 hr Temp Pulse Resp BP Pulse Ox 04/24/20 11:34 97.8 F 64 20 113/59 92 L 04/24/20 08:15 87 20 91 L 04/24/20 07:37 66 20 132/71 92 L 04/24/20 03:50 97.7 F 66 18 144/88 85 L 04/24/20 03:33 66 18 85 L 04/23/20 23:47 97.7 F 71 24 119/58 91 L 04/23/20 20:41 64 24 94 L 04/23/20 19:20 97.3 F 78 28 H 113/58 86 L 04/23/20 17:22 75 28 H 68 L 04/23/20 16:00 97.9 F 78 18 127/79 91 L Oxygen-Last 24 hours Oxygen Flowrate (L/min)-RT 10 Oxygen Flowrate (L/min)-RT 10 Oxygen Flowrate (L/min)-RT 10 Oxygen Flowrate (L/min)-RT 10 Pain Assessment - Last Documented Pain Intensity 4 Pain Scale Used 0-10 Pain Scale Intake and Output: Intake & Output 04/22/20 04/23/20 04/24/20 04/25/20 11:59 11:59 11:59 11:59 Intake Total 2840 2180 194 Output Total 500 Balance 7920 2180 1949 Weight 113.3 kg 112 kg 114 kg Lab Results: Accuchecks Date 04/23/20 Time 21:30 Accucheck Value: 243 Accucheck Value: 86 Accucheck Value: 185 Accucheck Value: 146 Lab Results-Last 24 Hours 04/23/20 04/23/20 04/23/20 Range/Units 13:15 13:15 13:15 WBC 15.3 H (4.0-10.5) K/mm3 RBC 4.29 (4.1-5.6) M/mm3 Hgb 13.6 (12.5-18.0) gm/dl Hct 41.6 L (42-50) % MCV 97.0 (78-100) fl MCH 31.7 (26-32) pg MCHC 32.7 (32-36) g/dl RDW 13.8 (11.5-14.0) % Plt Count 159 (150-450) K/mm3 MPV 9.7 (7.5-11.0) fl Segmented Neutrophils 66 (36.-66.) % Band Neutrophils 6 H (0.0-2.0) % Lymphocytes (Manual) 20 L (24-44) % Monocytes (Manual) 7 (0.0-12.0) % Eosinophils (Manual) 1 (0.00-3.0) % Platelet Estimate NORMAL (NORMAL) RBC Morphology NORMAL Sodium 136 L (137-145) mmol/L Potassium 4.4 (3.5-5.1) mmol/L Chloride 104 (98-107) mmol/L Carbon Dioxide 28 (22-30) mmol/L Anion Gap 9.5 (5-15) MEQ/L BUN 22 H (9-20) mg/dL Creatinine 0.79 (0.66-1.25) mg/dL Estimated GFR > 60.0 ML/MIN Glucose 149 H (74-106) mg/dL Calcium 8.1 L (8.4-10.2) mg/dL Total Bilirubin 0.60 (0.2-1.3) mg/dL AST 179 H (17-59) U/L ALT 130 H (0-50) U/L Alkaline Phosphatase 192 H (38-126) U/L Troponin I < 0.012 (0.000-0.034) ng/mL Serum Total Protein 6.5 (6.3-8.2) g/dL Albumin 3.5 (3.5-5.0) g/dL Multi-Disciplinary Progress Notes: Multi-Disciplinary Progress Notes 04/24/20 10:44 Respiratory Note by Nay Lacy SPO2 96%. FIO2 DEC TO 50% Initialized on 04/24/20 10:44 - END OF NOTE 04/24/20 10:18 Respiratory Note by Nay Lacy PT CONTINUES TO DO VERY WELL ON HIGHFLOW AT 35LPM/ 60% SPO2 92% AND LESS SOB. WILL WEAN TOLERATED. HHN CHANGED TO Q4 THIS AM Initialized on 04/24/20 10:18 - END OF NOTE 04/24/20 08:11 Respiratory Note by Nay Lacy 0745 PTS SPO2 CONTINUES TO STAY 79-81% ON 10LPM OXYMIZER. PT PLACED ON HIGHFOW 35LPM AT 60%, PT AND [facility]FE EDUCATED ON HOW HIGHFLOW WORKS. PT RESPONDED WELL SPO2 AT 91% Initialized on 04/24/20 08:11 - END OF NOTE Assessment/Plan (1) Pneumonia Current Visit: Yes Status: Acute Qualifiers: Pneumonia type: due to unspecified organism Laterality: right Lung location: upper lobe of lung Qualified Code(s): J18.9 - Pneumonia, unspecified organism Assessment & Plan: on meropenem Day #3 Code(s): J18.9 - PNEUMONIA, UNSPECIFIED ORGANISM (2) SOB (shortness of breath) Current Visit: Yes Status: Acute Assessment & Plan: I think the majority of this SOB is due to the likely returned lung cancer. I tried to call Dr. Carmen but have not been able to reach him. I talked with the pt about the fact that he may not recover from this episode, the cancer may have progressed (but will have to talk with Dr. Carmen), he should discuss code status and hospice with his family. Pt thinks he is going to be a miracle and recover. Code(s): R06.02 - SHORTNESS OF BREATH (3) Chest pain Current Visit: Yes Status: Resolved Qualifiers: Chest pain type: other chest pain Qualified Code(s): R07.89 - Other chest pain; R07.8 - Other chest pain Code(s): R07.9 - CHEST PAIN, UNSPECIFIED (4) Hx of malignant neoplasm of lung Current Visit: Yes Status: Chronic Code(s): Z85.118 - PERSONAL HISTORY OF MALIGNANT NEOPLASM OF BRONCHUS AND LUNG (5) Leukocytosis Current Visit: Yes Status: Acute Qualifiers: Leukocytosis type: unspecified Qualified Code(s): D72.829 - Elevated white blood cell count, unspecified Code(s): D72.829 - ELEVATED WHITE BLOOD CELL COUNT, UNSPECIFIED (6) CAD (coronary artery disease) Current Visit: No Status: Chronic Qualifiers: Coronary Disease-Associated Artery/Lesion type: [place] artery [place] vs. transplanted heart: [place] heart Associated angina: without angina Qualified Code(s): I25.10 - Atherosclerotic heart disease of [place] coronary artery without angina pectoris Code(s): I25.10 - ATHSCL HEART DISEASE OF [place] CORONARY ARTERY W/O ANG PCTRS (7) COPD (chronic obstructive pulmonary disease) Current Visit: No Status: Chronic Qualifiers: COPD type: unspecified COPD Qualified Code(s): J44.9 - Chronic obstructive pulmonary disease, unspecified (8) Pulmonary fibrosis Current Visit: No Status: Chronic Code(s): J84.10 - PULMONARY FIBROSIS, UNSPECIFIED
[2020-04-24] MEDS: ZOCOR 20MG PO SCH (21:47)
[2020-04-25] MEDS: MORPHINE SULFATE 4 MG INJ IV PRN ×6 (01:37→23:36)
[2020-04-25] MEDS: Merrem 1 GM 1 G in Sodium Chloride 100ML MINI-BAG PLUS 100 ML IV SCH ×3 (01:37→18:12)
[2020-04-25] MEDS: DUONEB 0.5-3 MG/3 ml Neb IH SCH ×6 (03:11→23:40)
[2020-04-25] MEDS: OXYCODONE-ACETAMINOPHEN 10-325 PO PRN ×4 (04:45→21:38)
[2020-04-25] MEDS: Advair Hfa 230/21 Mcg COMMON CANISTER IH SCH ×2 (06:45→19:19)
[2020-04-25] MEDS: Coreg 3.125 MG PO SCH ×2 (09:21→21:38)
[2020-04-25] MEDS: DELTASONE 20 MG PO SCH (09:22)
[2020-04-25] MEDS: Cozaar 50 MG PO SCH (09:22)
[2020-04-25] MEDS: Prozac 20 MG PO SCH (09:22)
[2020-04-25] MEDS: Imdur 30 MG PO SCH (09:22)
[2020-04-25] MEDS: ECOTRIN 81 MG PO SCH (09:22)
[2020-04-25] MEDS: Protonix 40MG Tablet PO SCH (09:22)
[2020-04-25] MEDS: ENOXAPARIN SODIUM SQ SCH (09:29)
[2020-04-25 09:45] LABS: A-aADO2 213; ABG HEMOGLOBIN 13.2; ABG POTASSIUM 4.8 (3.5-5.1); ARTERIAL BLD GAS O2 SATURATION 91.6 % (95-100); ARTERIAL BLOOD GAS BASE EXCESS 5.2 (-2.0-2.0); ARTERIAL BLOOD GAS FIO2 45 %; ARTERIAL BLOOD GAS PCO2 39 mmHg (35-45); ARTERIAL BLOOD GAS PO2 59 mmHg (75-100); CARBOXYHEMOGLOBIN 1.3 % THgb (0.0-6.9); HGB O2 SAT 89.9 g/dF (94-100); Methhemoglobin 0.7 % (1.4-1.5); paO2 pAO1 0.22
[2020-04-25 09:46] LABS: ARTERIAL BLOOD GAS pH 7.48 (7.35-7.45)
--- NOTE | 2020-04-25 11:37 | XRAY ---
Indication: Short of breath. Comparison: April 20, 2020. Portable chest again demonstrates cardiomegaly with diffuse pulmonary edema and tiny bibasilar effusions favoring cardiac decompensation/fluid overload. Minimal improving right upper lobe airspace opacity. No new cardiopulmonary abnormalities.
[2020-04-25 11:49] LABS: Hematocrit 39.6 % (42-50); Hemoglobin 12.7 gm/dl (12.5-18.0); Mean Cell Volume 96.8 fl (78-100); Mean Corpuscular Hemoglobin 31.1 pg (26-32); Mean Corpuscular Hgb Concent. 32.1 g/dl (32-36); Mean Platelet Volume 10.2 fl (7.5-11.0); Platelet Count 104 K/mm3 (150-450); Red Blood Count 4.09 M/mm3 (4.1-5.6); Red Cell Distribution Width 13.7 % (11.5-14.0); White Blood Count 16.6 K/mm3 (4.0-10.5)
[2020-04-25] MEDS: HUMULIN R SQ PRN ×3 (12:50→21:43)
[2020-04-25 14:12] LABS: Lymphocytes 20 % (24-44); Monocyte 6 % (0.0-12.0); Neutrophils 74 % (36.-66.); Nucleated Red Blood Cell 2 %; Total Cells Counted 100; Toxic Granulation 1+
[2020-04-25 14:13] LABS: Platelet Estimate NORMAL (NORMAL)
--- NOTE | 2020-04-25 20:05 | PCM.NOTE ---
Date and Time: 04/25/201958 Subjective Assessment: 59 yr old male seen and examined this am patient reports that he feels better. He reports the severe R sided pain he had when he was admitted has improved. Patient reports that he thinks he is breathing ok. He wished his was present for our discussion this am. Patient did not want to discuss hospice or end of life care. Patient feels that he will recover from this illness. He had no reported concerns this am. - Review of Systems Constitutional: No Symptoms Eyes: No Symptoms Respiratory: Short Of Breath, No Cough, No Wheezing Cardiac: No Chest Pain, No Edema, No Palpitations Abdominal/Gastrointestinal: No Abdominal Pain, No Nausea, No Vomiting, No Diarrhea, No Constipation Genitourinary Symptoms: No Symptoms Musculoskeletal: No Symptoms Skin: No Rash Psychological: No Alcohol Abuse, No Drug Abuse, No Anxiety, No Depression Objective Exam General Appearance: severe distress, alert, obese Neurologic Exam: oriented x 3, normal mood/affect, confusion, No disoriented Skin Exam: normal color, warm, dry, No rash Eye Exam: eyes nml inspection, No scleral icterus Ears, Nose, Throat Exam: moist mucous membranes Neck Exam: normal inspection Respiratory Exam: respiratory distress, diminished breath sounds (I cant hear much air movement), accessory muscle use, prolonged expirations, No normal breath sounds, No chest tenderness, No lungs clear, No crackles/rales, No wheezing Cardiovascular Exam: regular rate/rhythm, normal heart sounds, No murmur, No friction rub, No gallop Gastrointestinal/Abdomen Exam: soft, normal bowel sounds, No tenderness, No distention, No mass, No rebound OBJECTIVE DATA Vital Signs: Vital Signs - 24 hr Temp Pulse Resp BP Pulse Ox 04/25/20 19:31 97.4 F 75 40 H 131/72 90 L 04/25/20 16:00 97.2 F 72 17 133/71 89 L 04/25/20 14:35 67 20 92 L 04/25/20 11:26 98.0 F 64 15 126/63 91 L 04/25/20 10:44 66 22 90 L 04/25/20 07:23 97.4 F 58 L 14 133/69 89 L 04/25/20 06:49 65 18 90 L 04/25/20 04:06 97.7 F 57 L 28 H 142/63 91 L 04/25/20 03:15 61 20 86 L 04/24/20 23:45 97.0 F 56 L 22 119/60 93 L 04/24/20 23:31 57 L 16 93 L 04/24/20 20:00 97.6 F 66 28 H 115/58 92 L Oxygen-Last 24 hours Oxygen Flowrate (L/min)-RT 35 Oxygen Flowrate (L/min)-RT 35 Oxygen Flowrate (L/min)-RT 35 Pain Assessment - Last Documented Pain Intensity 7 Pain Scale Used 0-10 Pain Scale Intake and Output: Intake & Output 04/23/20 04/24/20 04/25/20 04/26/20 11:59 11:59 11:59 11:59 Intake Total 2180 1949 2204 600 Balance 2180 1949 2204 600 Weight 112 kg 114 kg 116 kg Lab Results: Accuchecks Date 04/25/20 Date 04/25/20 Date 04/25/20 Date 04/24/20 Time 16:30 Time 11:30 Time 07:30 Time 21:30 Accucheck Value: 279 Accucheck Value: 180 Accucheck Value: 102 Accucheck Value: 324 Lab Results-Last 24 Hours 04/25/20 04/25/20 04/25/20 Range/Units 09:44 11:00 11:40 WBC 16.6 H (4.0-10.5) K/mm3 RBC 4.09 L (4.1-5.6) M/mm3 Hgb 12.7 (12.5-18.0) gm/dl Hct 39.6 L (42-50) % MCV 96.8 (78-100) fl MCH 31.1 (26-32) pg MCHC 32.1 (32-36) g/dl RDW 13.7 (11.5-14.0) % Plt Count 104 L D (150-450) K/mm3 MPV 10.2 (7.5-11.0) fl Segmented Neutrophils 74 H (36.-66.) % Lymphocytes (Manual) 20 L (24-44) % Monocytes (Manual) 6 (0.0-12.0) % Nucleated RBCs 2 % Toxic Granulation 1+ Platelet Estimate NORMAL (NORMAL) Puncture Site Pending pCO2 39 (35-45) mmHg pO2 59 L (75-100) mmHg Base Excess 5.2 H (-2.0-2.0) O2 Saturation 89.9 L (94-100) g/dF ABG pH 7.48 H (7.35-7.45) ABG HCO3 29.0 H (22-28) ABG O2 Sat (Measured) 91.6 L (95-100) % Delroy Test Pending A-a Gradient 213 a/A Ratio 0.22 Hemoglobin 13.2 Carboxyhemoglobin 1.3 (0.0-6.9) % THgb Methemoglobin 0.7 L (1.4-1.5) % Potassium 4.8 (3.5-5.1) Temperature 37.0 C POC O2 Flow Rate 45 % NT-Pro-B Natriuret Pep 349 (0-900) pg/mL Radiology Exams: Radiology Procedures Category Date Time Status CHEST 1 VIEW (PORTABLE) Routine Exams 04/25/20 11:26 Completed Multi-Disciplinary Progress Notes: Multi-Disciplinary Progress Notes 04/25/20 14:13 Nutrition Note by Jessie Tineo F/u Note: House regular diet con't with 75-100% po intake. Labs 04/23= Na 136, BUN 22, glu 149, elevated liver enzymes. adm weight 110.2 kg/ current weight 116 kg. goal of po intake >=75% met and ongoing; goal of glu wnl not met and ongoing. Pt may benefit from 2000CC diet. Will con't to monitor and f/u prn. T.CONRADO TineoCD Initialized on 04/25/20 14:13 - END OF NOTE 04/25/20 11:10 (created 04/25/20 15:51) Case Management Note by Ángela Hale CONTINUES TO DENY NEEDS FOR DISCHARGE. INDEPENDENT WITH ALL ADL'S. USES HOME OXYGEN, ALL EQUIP IN WORKING CONDITION. Initialized on 04/25/20 15:51 - END OF NOTE 04/25/20 09:48 Respiratory Note by Leticia Armendariz [id number] called to patient room due to complaining of sob and wanted oxygen incre ased to what it was on the day before. Explained to patient that was going to get an abg to see where his oxygen was truly at and so that Dr. Carmen could have those results when he came today. ABg on 50% at 45lpm high flow were 7.48 39 59 134 4.8 29 91% Called this to Yari and she increased to 60% with 45lpm sats after 15 minutes increased to 94% will forward this information to Dr. tim and will await Dr. Carmen consult. joseph. Initialized on 04/25/20 09:48 - END OF NOTE Assessment/Plan (1) Acute on chronic respiratory failure Current Visit: No Status: Acute Assessment & Plan: Patient is on highflow oxygen and is still having increased work of breathing. Discussed with patient how ill he is and he does not feel that he is that ill. He feels that he will be able to recover and did not want to discuss going home with hospice. I did discuss that we would possibly have to intubate due to his increased work of breathing and oxygen requirements. Patient wants to be full code and wants to be intubated. Dr Ashley has been consulted to help comanage this patient Code(s): J96.20 - ACUTE AND CHR RESP FAILURE, UNSP W HYPOXIA OR HYPERCAPNIA (2) Hypoxia Current Visit: Yes Status: Acute Code(s): R09.02 - HYPOXEMIA (3) Leukocytosis Current Visit: Yes Status: Acute Qualifiers: Leukocytosis type: unspecified Qualified Code(s): D72.829 - Elevated white blood cell count, unspecified Assessment & Plan: Patient has had increased white count. Possibly related to steroids and pneumonia. Will continue to trend Code(s): D72.829 - ELEVATED WHITE BLOOD CELL COUNT, UNSPECIFIED (4) Pneumonia Current Visit: Yes Status: Acute Qualifiers: Pneumonia type: due to unspecified organism Laterality: right Lung location: upper lobe of lung Qualified Code(s): J18.9 - Pneumonia, unspecified organism Assessment & Plan: Patient is currently on merum. Will get a 2V cxr to re-evaluate for worsening pneumonia. Code(s): J18.9 - PNEUMONIA, UNSPECIFIED ORGANISM (5) SOB (shortness of breath) Current Visit: Yes Status: Acute Code(s): R06.02 - SHORTNESS OF BREATH (6) Hx of malignant neoplasm of lung Current Visit: Yes Status: Chronic Assessment & Plan: Patient's imaging indicated suspicion that he had return of lung cancer present on R side. Patient is too critically ill to tolerate treatment at this time. Code(s): Z85.118 - PERSONAL HISTORY OF MALIGNANT NEOPLASM OF BRONCHUS AND LUNG (7) Chest pain Current Visit: Yes Status: Resolved Qualifiers: Chest pain type: other chest pain Qualified Code(s): R07.89 - Other chest pain; R07.8 - Other chest pain Assessment & Plan: Patient denied chest pain this am. He reports that it was severe a few days ago but is much better. Code(s): R07.9 - CHEST PAIN, UNSPECIFIED (8) Acute exacerbation of chronic obstructive airways disease Current Visit: No Status: Acute Assessment & Plan: Patient is on steroids and duonebs for COPD exacerbation Code(s): J44.1 - CHRONIC OBSTRUCTIVE PULMONARY DISEASE W (ACUTE) EXACERBATION
[2020-04-25] MEDS: ZOCOR 20MG PO SCH (21:38)
[2020-04-26] MEDS: Merrem 1 GM 1 G in Sodium Chloride 100ML MINI-BAG PLUS 100 ML IV SCH ×3 (01:14→17:58)
[2020-04-26] MEDS: OXYCODONE-ACETAMINOPHEN 10-325 PO PRN ×4 (01:14→16:14)
[2020-04-26] MEDS: DUONEB 0.5-3 MG/3 ml Neb IH SCH ×5 (03:09→17:45)
[2020-04-26] MEDS: MORPHINE SULFATE 4 MG INJ IV PRN ×4 (03:48→18:00)
[2020-04-26] MEDS: Advair Hfa 230/21 Mcg COMMON CANISTER IH SCH ×2 (07:18→19:11)
[2020-04-26] MEDS: Imdur 30 MG PO SCH (09:41)
[2020-04-26] MEDS: DELTASONE 20 MG PO SCH (09:42)
[2020-04-26] MEDS: Cozaar 50 MG PO SCH (09:42)
[2020-04-26] MEDS: Coreg 3.125 MG PO SCH (09:42)
[2020-04-26] MEDS: Prozac 20 MG PO SCH (09:42)
[2020-04-26] MEDS: ECOTRIN 81 MG PO SCH (09:43)
[2020-04-26] MEDS: Protonix 40MG Tablet PO SCH (09:43)
[2020-04-26] MEDS: ENOXAPARIN SODIUM SQ SCH (09:44)
--- NOTE | 2020-04-26 11:00 | PROG NOTE ---
CONSULT DATE: 04/25/2020 HISTORY: Abhinav De La Cruz is a 59 year old male with history of multiple health problems primarily pulmonary, seen by me in consultation at [facility] last week. The patient has been admitted with progressive hypoxia and shortness of breath. CT chest revealed fibrotic changes along with possible mass-like infiltrates which are new along with adenopathy. The patient was treated with IV steroids to see if hypoxemia could be improved with steroid therapy. However, his oxygenation has been declining and he has required progressively increased incremental oxygen. Currently he is on 35 liters high flow and still appears tachypneic. Any efforts to wean this have not been successful. PHYSICAL EXAMINATION: His vital signs are noted. HEENT: Normocephalic. Oral exam shows small oropharynx. NECK: Short. Accessory muscles are prominent. CVS: First and second heart sounds are normal, regular, rhythmic. RESPIRATORY: Shows diminished breath sounds, occasional crackles are heard. ABDOMEN: Obese. EXTREMITIES: Trace edema noted. LABORATORY DATA AND TESTS: White count is 16.6, hemoglobin 12.7, hematocrit 39, PLT 104,000. BNP 349. Blood cultures are negative. Again, CT chest dated 04/21/2020 was reviewed and reportedly was negative for pulmonary embolus but did show right upper lobe and right base irregular mass opacities worrisome for malignancy. In addition, new bulky mediastinal and suprahilar lymphadenopathy along with small right pericardial node was seen suggestive of possible metastatic disease. New cirrhotic appearing liver was also described without large ascites. ASSESSMENT: This is a 59 year old unfortunate male admitted with: 1) Acute on chronic hypoxic respiratory failure. 2) Progressive pulmonary fibrosis (secondary to radiation?). 3) Prior history of lung cancer now with radiologic features suggestive of recurrence. 4) Underlying chronic obstructive pulmonary disease. 5) Nicotine addiction. 6) Cirrhosis without large ascites secondary to portal hypertension. RECOMMENDATIONS: I had a long discussion with the patient in presence of his . I explained to him the complexity in his care and overall likely poor prognosis. Option of palliative care was discussed as well. The patient clearly understands everything and although he understands that there is a likelihood of malignancy, he still wishes to maintain a Full Code status. For now we will respect the patient's wishes although his prognosis appears extremely poor and he has not shown any meaningful clinical improvement despite aggressive therapy. Should the patient require intubation, I will be glad to assist in further care although most of it will be medically futile. If he changes his mind and wishes to go home with palliative care we will have to first wean his supplemental oxygen down to at least 10 liters which is the max that can be done at home before he can be discharged for palliative care services but unfortunately with limitations in placement and other health problems we are limited in treatment options and his prognosis appears grave. Once again, thank you for allowing me to participate in the care of Abhinav Dorothy.
[2020-04-26 11:16] LABS: ABG SITE rr; ALLEN TEST OK? YES
--- NOTE | 2020-04-26 12:43 | PCM.NOTE ---
Date and Time: 04/26/20 1242 Subjective Assessment: 59 year old male seen and examined this am. Patient reports that he feels slightly better this am. He reports that he did well on bipap last night. Patient reports that he does not need a nicotine patch. He still wants to be a full code. 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 Patient reports that the R sided chest pain/body pain comes and goes. Patient denies any lower extremity edema. He also feels that his weight is contributing to him having a hard time breathing. - Review of Systems Constitutional: No Fever, No Weight Loss Eyes: No Symptoms Ears, Nose, & Throat: No Symptoms Respiratory: Short Of Breath, No Wheezing Cardiac: Chest Pain (intermittent R sided chest wall and lower abd/back), No Edema Abdominal/Gastrointestinal: No Nausea, No Vomiting, No Diarrhea, No Constipation Genitourinary Symptoms: No Symptoms Musculoskeletal: No Symptoms Skin: No Rash Neurological: No Headache Psychological: No Alcohol Abuse, No Drug Abuse, No Anxiety, No Depression Endocrine: No Symptoms Objective Exam General Appearance: severe distress, alert, No anxiety Neurologic Exam: oriented x 3, cooperative Skin Exam: normal color, warm, dry, No rash Eye Exam: eyes nml inspection Ears, Nose, Throat Exam: moist mucous membranes Respiratory Exam: respiratory distress, diminished breath sounds (Can only hear breath sounds on lower left lung), accessory muscle use, No lungs clear, No crackles/rales, No wheezing Cardiovascular Exam: regular rate/rhythm, No murmur, No friction rub, No gallop Gastrointestinal/Abdomen Exam: soft, normal bowel sounds, No tenderness, No distention, No mass Extremity Exam: normal inspection, pedal edema, No swelling, No tenderness OBJECTIVE DATA Vital Signs: Vital Signs - 24 hr Temp Pulse Resp BP Pulse Ox 04/26/20 11:50 97.4 F 89 27 H 131/96 98 04/26/20 07:24 97.2 F 67 20 180/85 95 04/26/20 07:00 61 24 85 L 04/26/20 03:21 96.2 F 50 L 20 171/72 97 04/26/20 03:09 58 L 24 97 04/26/20 00:00 97 F 68 32 H 156/74 90 L 04/25/20 23:40 81 44 H 88 L 04/25/20 20:05 92 H 40 H 90 L 04/25/20 19:31 97.4 F 75 40 H 131/72 90 L 04/25/20 16:00 97.2 F 72 17 133/71 89 L 04/25/20 14:35 67 20 92 L Pain Assessment - Last Documented Pain Intensity 4 Pain Scale Used 0-10 Pain Scale Intake and Output: Intake & Output 04/24/20 04/25/20 04/26/20 04/27/20 11:59 11:59 11:59 11:59 Intake Total 1948 2203 1200 Balance 1948 2203 1200 Weight 114 kg 116 kg 115.7 kg Lab Results: Accuchecks Date 04/25/20 Date 04/25/20 Time 21:34 Time 16:30 Accucheck Value: 96 Accucheck Value: 202 Accucheck Value: 279 Lab Results-Last 24 Hours 04/25/20 04/25/20 04/25/20 Range/Units 09:44 11:00 11:40 WBC 16.6 H (4.0-10.5) K/mm3 RBC 4.09 L (4.1-5.6) M/mm3 Hgb 12.7 (12.5-18.0) gm/dl Hct 39.6 L (42-50) % MCV 96.8 (78-100) fl MCH 31.1 (26-32) pg MCHC 32.1 (32-36) g/dl RDW 13.7 (11.5-14.0) % Plt Count 104 L D (150-450) K/mm3 MPV 10.2 (7.5-11.0) fl Segmented Neutrophils 74 H (36.-66.) % Lymphocytes (Manual) 20 L (24-44) % Monocytes (Manual) 6 (0.0-12.0) % Nucleated RBCs 2 % Toxic Granulation 1+ Platelet Estimate NORMAL (NORMAL) Puncture Site rr Delroy Test YES NT-Pro-B Natriuret Pep 349 (0-900) pg/mL Radiology Exams: Radiology Procedures Category Date Time Status CHEST 1 VIEW (PORTABLE) Routine Exams 04/25/20 11:26 Completed Multi-Disciplinary Progress Notes: Multi-Disciplinary Progress Notes 04/26/20 01:18 Respiratory Note by Anastasiya Weller WHEN ARRIVING TO DO PATIENTS 2300 TREATMENT, PATIENT SEEMED TO BE MORE SOB AT [facility] THAN HE WAS AT HIS 1900 TREATMENT. I EXPLAINED THAT WE COULD TRY A DIFF ERENT BIPAP AND HE AGREED. I PLACED HIM ON BIPAP 12/6 BACK UP RATE OF 20 AND 60% FIO2. PATIENT SEEMS TO BE RESTING AT THIS TIME ON IT AND MAINTAINING SATURATIONS OF 95-97%. PATIENT COMPLAINS OF NOTHING ELSE AT THIS TIME. AT 0100 I CHECKED ON PATIETN AGAIN AND HE WAS SLEEPING AND MAINTAINING ON 60% WITH SATURATIONS OF 95%. PATIENT WAS BREATHING 24 ON THE BIPAP AT THIS TIME. Initialized on 04/26/20 01:18 - END OF NOTE 04/25/20 14:13 Nutrition Note by Jessie Tineo F/u Note: House regular diet con't with 75-100% po intake. Labs 04/23= Na 136, BUN 22, glu 149, elevated liver enzymes. adm weight 110.2 kg/ current weight 116 kg. goal of po intake >=75% met and ongoing; goal of glu wnl not met and ongoing. Pt may benefit from 2000CC diet. Will con't to monitor and f/u prn. T.ELAYNE Tineo Initialized on 04/25/20 14:13 - END OF NOTE Assessment/Plan (1) Acute on chronic respiratory failure Current Visit: No Status: Acute Assessment & Plan: Patient was on bipap overnight and is on highflow oxygen tripod position with increased work of breathing. Patient discussed what he remembered discussing with the mushroom growing supervisor. Patient reported that he was told that he couldnt go home on the high oxygen requirement he is needing at this time. I attempted to discuss hospice again with the patient but he did not feel that he needed hospice. Code(s): J96.20 - ACUTE AND CHR RESP FAILURE, UNSP W HYPOXIA OR HYPERCAPNIA (2) Leukocytosis Current Visit: Yes Status: Acute Qualifiers: Leukocytosis type: unspecified Qualified Code(s): D72.829 - Elevated white blood cell count, unspecified Assessment & Plan: Possibly related to steroids but could still be related to his current pneumonia. Will continue to trend. Code(s): D72.829 - ELEVATED WHITE BLOOD CELL COUNT, UNSPECIFIED (3) Pneumonia Current Visit: Yes Status: Acute Qualifiers: Pneumonia type: due to unspecified organism Laterality: right Lung locati on: upper lobe of lung Qualified Code(s): J18.9 - Pneumonia, unspecified organism Assessment & Plan: Cxr done yesterday showed that pneumonia was improving. Patient has been afebrile. Will continue on current antibiotic Code(s): J18.9 - PNEUMONIA, UNSPECIFIED ORGANISM (4) Hx of malignant neoplasm of lung Current Visit: Yes Status: Chronic Assessment & Plan: Patient's CT showed concerning signs of cancer progression. Patient has been on chemo in the past. Due to resp failure patient is currently not a candidate for any treatment at this time. Code(s): Z85.118 - PERSONAL HISTORY OF MALIGNANT NEOPLASM OF BRONCHUS AND LUNG (5) Chest pain Current Visit: Yes Status: Resolved Qualifiers: Chest pain type: other chest pain Qualified Code(s): R07.89 - Other chest pain; R07.8 - Other chest pain Assessment & Plan: Patient reports intermittent R sided chest wall pain. Patient reports that it is along his whole R side of his chest and abdomen. Code(s): R07.9 - CHEST PAIN, UNSPECIFIED (6) Acute exacerbation of chronic obstructive airways disease Current Visit: No Status: Acute Assessment & Plan: Patient is on steroids and duonebs for copd exacerbation Code(s): J44.1 - CHRONIC OBSTRUCTIVE PULMONARY DISEASE W (ACUTE) EXACERBATION
[2020-04-26] MEDS: HUMULIN R SQ PRN ×2 (12:47→17:51)
[2020-04-26 13:55] LABS: ANION GAP 10.6 MEQ/L (5-15); BLOOD UREA NITROGEN 21 mg/dL (9-20); CHLORIDE 99 mmol/L (98-107); Calcium 8.6 mg/dL (8.4-10.2); Carbon Dioxide 31 mmol/L (22-30); Creatinine 1 0.81 mg/dL (0.66-1.25); Glucose 165 mg/dL (74-106); Potassium 4.7 mmol/L (3.5-5.1); SODIUM 136 mmol/L (137-145)
[2020-04-26 13:58] LABS: Hematocrit 43.8 % (42-50); Hemoglobin 13.9 gm/dl (12.5-18.0); Mean Cell Volume 97.6 fl (78-100); Mean Corpuscular Hgb Concent. 31.7 g/dl (32-36); Mean Platelet Volume 10.4 fl (7.5-11.0); Platelet Count 132 K/mm3 (150-450); Red Blood Count 4.49 M/mm3 (4.1-5.6); Red Cell Distribution Width 14.1 % (11.5-14.0); White Blood Count 19.9 K/mm3 (4.0-10.5)
[2020-04-26 16:29] VITALS: BP 123/70
[2020-04-26 19:23] VITALS: PULSE 90; O2SAT 85
[2020-04-26] MEDS ORDERED: PROVENTIL Solution 2.5 MG/0.5 ML IH ONE (19:38)
[2020-04-26] MEDS ORDERED: PROVENTIL 2.5 MG/3 ML NEB IH ONE (19:40)
[2020-04-26] MEDS ORDERED: EPINEPHRINE ABBOJECT 1 MG IV ONE (20:39)
[2020-04-26] MEDS ORDERED: SODIUM BICARBONATE 50 MEQ/50 ML ABBOJECT IV ONE (20:39)
[2020-04-26] MEDS ORDERED: Amidate 20 MG/10 ML IV ONE (20:39)
[2020-04-26] MEDS ORDERED: VERSED 5 MG/5 ML IV ONE (20:39)
[2020-04-26] MEDS ORDERED: ATROPINE SULFATE 1MG SYR ABBOJECT IV ONE (20:39)
[2020-04-26 23:51] LABS: A-aADO2 605; ABG HEMOGLOBIN 13.9; ARTERIAL BLD GAS O2 SATURATION 81.4 % (95-100); ARTERIAL BLOOD GAS BASE EXCESS -4.4 (-2.0-2.0); ARTERIAL BLOOD GAS FIO2 100 %; ARTERIAL BLOOD GAS PCO2 45 mmHg (35-45); ARTERIAL BLOOD GAS PO2 52 mmHg (75-100); ARTERIAL BLOOD GAS VENT MODE BiPAP; CARBOXYHEMOGLOBIN 1.1 % THgb (0.0-6.9); HCO3- 22.1 (22-28); HGB O2 SAT 80.1 g/dF (94-100); Methhemoglobin 0.5 % (1.4-1.5); paO2 pAO1 0.08
[2020-04-26 23:53] LABS: ABG POTASSIUM 6.3 (3.5-5.1); ABG SITE LEFT RADIAL; ALLEN TEST OK? YES
--- NOTE | 2020-05-07 12:34 | PCM.DS ---
Discharge Summary Date of Admission: 04/20/20 14:35 Date of Discharge: 04/26/2020 Admitting Physician: RADHA ANN MD Consults: Consults on Case 04/20/20 15:54 Consult Pulmonology ROUTINE Primary Care Provider: RADHA ANN MD Allergies Allergies No Known Drug Allergies Allergy (Verified 04/20/20 11:42) Hospital Summary - Hospital Course Hospital Course: is a 59 year old male pt of Dr. Ann formerly Dr Cortez with hx lung cancer, RLL (Jul 2019, radiated) who was admitted through ER with SOB x3 weeks. No fever. Some cough with hemoptysis. He was swimming one day, then got up in the night (3 wks ago) to go to the bathroom and couldn't get back to bed due to his shortness of breath. He has apparently had a CT chest in the past 2 weeks at another facility. In ER he was started on IV rocephin. Dr. Carmen was consulted for pt's home care chaplain, Dr. Guerrier, and started pt on po levaquin and IV solumedrol, to transition to po prednisone after 3d. Patient was requiring increased oxygen as he was in acute respiratory failure. CT scan done at [facility] indicated a pneumonia but could not exclude the possibility of worsening lung cancer. Patient continued to be short of breath and had increased work of breathing. He did not want to go on hospice and felt that he would recover from this episode. He was seen by Sleeve Turner who also discussed the severity of hi s condition and what his resp status would have to be to be able to go home. He continued to deteriorate until he went into resp arrest followed by cardiac arrest. Please refer to ER physician's note for code details. - Vitals & Intake/Output Vital Signs: Vital Signs Temperature 97.7 F 04/26/20 16:00 Pulse Rate 90 04/26/20 19:11 Respiratory Rate 32 H 04/26/20 19:11 Blood Pressure 123/70 04/26/20 16:00 O2 Sat by Pulse Oximetry 85 L 04/26/20 19:11 - Lab Result Diagrams: 04/26/20 13:29 04/26/20 13:29 Micro Results-Entire Visit: Microbiology 04/20/20 12:25 Blood Culture Gram Stain - Final Blood Not Reportable Blood Culture - Final NO GROWTH 04/20/20 12:16 Blood Culture Gram Stain - Final Blood Not Reportable Blood Culture - Final NO GROWTH - Procedures and Test Procedures and Tests throughout Hospitalization: Therapy Orders & Screens 04/20/20 14:41 Oxygen Nasal Cannula 6 lpm Comment: 04/20/20 15:18 BiPap/CPAP ROUTINE Comment: Respiratory Therapy Assessment DAILY Comment: 04/20/20 18:53 Peak Expiratory Flow Rate ONCE Comment: Reason For Exam: Diagnosis: pneumonia 04/24/20 08:09 Oxygen High Flow per RT 50% Comment: Diagnosis: pneumonia Discharge Exam General Appearance: other (I was not present for physical exam at time of but saw patient earlier that day and patient was in resp distress at that time and on oxymizer.) Final Diagnosis/Problem List - Final Discharge Diagnosis/Problem (1) Acute on chronic respiratory failure Status: Acute Assessment & Plan: Patient had increased oxygen requirements while in hospital. Patient continued to smoke even prior to this hospital admission. Patient was also diagnosed with pneumonia that was exacerbating his resp status. Patient had hx of lung cancer and COPD as well which also contributed to worsening resp status. Patient was maxed on tx and was requiring intubations. Patient went into resp arrest which led to cardiac arrest. Code(s): J96.20 - ACUTE AND CHR RESP FAILURE, UNSP W HYPOXIA OR HYPERCAPNIA (2) Hypoxia Status: Acute Code(s): R09.02 - HYPOXEMIA (3) Leukocytosis Status: Acute Assessment & Plan: Possibly from pneumonia or lung cancer. Patient was receiving IV antibiotics. Code(s): D72.829 - ELEVATED WHITE BLOOD CELL COUNT, UNSPECIFIED (4) Pneumonia Status: Acute Assessment & Plan: On IV antibiotics. Cxr showed slight improvement of pneumonia Code(s): J18.9 - PNEUMONIA, UNSPECIFIED ORGANISM (5) SOB (shortness of breath) Status: Acute Code(s): R06.02 - SHORTNESS OF BREATH (6) Hx of malignant neoplasm of lung Status: Chronic Assessment & Plan: Unsure if cancer progression was present as CT was not conclusive however it could not be excluded Code(s): Z85.118 - PERSONAL HISTORY OF MALIGNANT NEOPLASM OF BRONCHUS AND LUNG (7) Chest pain Status: Resolved Assessment & Plan: Present intermittent and high suspicion as lung cancer being the cause Code(s): R07.9 - CHEST PAIN, UNSPECIFIED (8) Acute exacerbation of chronic obstructive airways disease Status: Acute Assessment & Plan: Patient was nebs and steroids and antibiotics for this. Code(s): J44.1 - CHRONIC OBSTRUCTIVE PULMONARY DISEASE W (ACUTE) EXACERBATION - Discharge Discharge Date: 04/26/20 Disposition: Condition: Prescriptions: No Action Albuterol Sulfate [Proair Hfa] 2 puff IH Q4H Aspirin 81 gm Chew [Baby Aspirin 81 mg Chew] 81 mg PO DAILY Atorvastatin Calcium [Lipitor] 80 mg PO DAILY Isosorbide Mononitrate 30 mg [Imdur 30 MG] 30 mg PO DAILY Losartan Potassium 25 mg PO DAILY Carvedilol 3.125 mg [Coreg 3.125 MG] 3.125 mg PO BID Omeprazole 20 mg PO DAILY Albuterol/Ipratropium 3ml Neb* [DUONEB 0.5-3 MG/3 ml Neb] 1 puff IH Q4H PRN PRN PRN Reason: Shortness Of Breath Glycopyrrolate/Formoterol Fum [Bevespi Aerosphere Inhaler] 2 puff PO DAILY Budesonide/Formoterol Fumarate [Symbicort 160-4.5 Mcg Inhaler] 1 inh PO DAILY Fluoxetine HCl [Prozac] 40 mg PO DAILY Hydrocodone Bit/Acetaminophen [Hydrocodon-Acetaminophn 10-325] 1 each PO QID PRN PRN Reason: Pain Metformin HCl Xr 500 mg [Glucophage XR 500 MG] 500 mg PO DAILY Follow up with: RADHA ANN MD [Primary Care Provider] - (Patient is )
== END 2020-04-26 20:40 | disposition expired | DRG 189 ==
LOC: ED 11:27 → MED SURG 14:35
PROVIDERS: ADMIT Family Medicine; ATTEND Family Medicine
DX: J96.21 Acute and chronic respiratory failure with hypoxia (principal); J18.9 Pneumonia, unspecified organism; J44.1 Chronic obstructive pulmonary disease with (acute) exacerbation; K76.6 Portal hypertension; I10 Essential (primary) hypertension; E78.00 Pure hypercholesterolemia, unspecified; I25.10 Atherosclerotic heart disease of native coronary artery without angina pectoris; D72.829 Elevated white blood cell count, unspecified; E11.9 Type 2 diabetes mellitus without complications; Z85.118 Personal history of other malignant neoplasm of bronchus and lung; J84.10 Pulmonary fibrosis, unspecified; Z11.59 Encounter for screening for other viral diseases; R07.9 Chest pain, unspecified; F17.200 Nicotine dependence, unspecified, uncomplicated; K74.60 Unspecified cirrhosis of liver; Z79.899 Other long term (current) drug therapy; I25.2 Old myocardial infarction
CPT/HCPCS: 36000; 36415; 36600; 71045; 71260; 80048; 80053; 80061; 82375; 82803; 82962; 83036; 83605; 83721; 83880; 84439; 84443; 84484; 85025; 85027; 87040; 87631; 92950; 93005; 93041; 94002; 94003; 94150; 94640; 94660; 94760; 94762; 94770; 96365; 96374; 99285; 99291; J0171; J0461; J0696; J1650; J1815; J2250; J2270; J2920; J2930; J7609; U0003; A9270-GY